=== PATIENT | female | born 1950 | race Caucasian/White ===

== ENCOUNTER 2016-11-11 07:01 | Day surgery (SDC) | payer BC ==
[2016-11-11] MEDS ORDERED: ZOLEDRONIC ACID 4 MG in SODIUM CHLORIDE 100 ML IVPB ONE (08:00)
[2016-11-11] MEDS ORDERED: SODIUM CHLORIDE 1,000 ML IV SCH (08:00)
[2016-11-11] MEDS ORDERED: HYDROCORTISONE SOD SUCCINATE 100 MG/2 ML VIAL IVPB PRN (08:00)
[2016-11-11 08:42] LABS: MCH 31.1 pg (25.7-33.7); MEAN CELL VOLUME 94.5 fl (80-96); MEAN PLT VOLUME 8.2 fl (7.5-11.1); PLATELET COUNT 147 K/MM3 (134-434); RDW 19.2 % (11.6-15.6); WHITE BLOOD COUNT 3.4 K/mm3 (4.0-10.0)
[2016-11-11 11:38] LABS: ALBUMIN 3.3 g/dl (3.4-5.0); BILIRUBIN,DIRECT 0.1 mg/dL (0.0-0.2); BILIRUBIN,TOTAL 0.3 mg/dL (0.2-1.0); CALCIUM 8.2 mg/dL (8.5-10.1); CREATININE 0.5 mg/dL (0.55-1.02)
[2016-11-11 12:02] LABS: METAMYELOCYTE 2 % (0-2)
[2016-11-11 12:03] LABS: PLATELET ESTIMATE ADEQUATE (NORMAL)
[2016-11-11 13:23] VITALS: BP 127/69; PULSE 87; TEMP 97.7
== END 2016-11-11 14:43 | disposition home or self-care (01) ==
LOC: JONCCHEMO 07:01 → J7W 10:21 → JONCCHEMO 14:43
PROVIDERS: ATTEND Internal Medicine Hematology & Oncology
DX: Z51.11 Encounter for antineoplastic chemotherapy (principal); C50.919 Malignant neoplasm of unspecified site of unspecified female breast; C79.51 Secondary malignant neoplasm of bone
CPT/HCPCS: 36415; 80048; 80076; 85025; 96365; J3489

== ENCOUNTER 2016-11-23 07:00 | Day surgery (SDC) | payer BC ==
[2016-11-23 10:40] VITALS: BP 115/61; PULSE 79; TEMP 98.3; BMI 36.8
[2016-11-23 11:01] LABS: ALBUMIN 3.2 g/dl (3.4-5.0); ANION GAP 7 (8-16); CO2 26 mmol/L (21-32); GLUCOSE,RANDOM 127 mg/dL (74-106); MAGNESIUM 2.1 mg/dL (1.8-2.4)
[2016-11-23 11:04] LABS: ALK PHOS 105 U/L (45-117); BILIRUBIN,TOTAL 0.4 mg/dL (0.2-1.0); CREATININE 0.5 mg/dL (0.55-1.02); SGOT/AST 22 U/L (15-37); SGPT/ALT 16 U/L (12-78); TOT PROT 5.8 g/dl (6.4-8.2)
[2016-11-23] MEDS ORDERED: FUROSEMIDE 20 MG TABLET (FP) PO ONE ×2 (12:00→17:00)
[2016-11-23 12:30] LABS: MCH 31.1 pg (25.7-33.7); MCHC 32.6 g/dl (32.0-36.0); MEAN CELL VOLUME 95.5 fl (80-96); PLATELET COUNT 141 K/MM3 (134-434); RDW 18.8 % (11.6-15.6); WHITE BLOOD COUNT 2.9 K/mm3 (4.0-10.0)
--- NOTE | 2016-11-23 16:00 | HP ---
Admitting History and Physical - Admission Chief Complaint: Symptomatic anemia for transfusion therapy History Source: Patient Limitations to Obtaining History: No Limitations - Past Medical History Cardiovascular: Yes: HTN Gastrointestinal: Yes: GERD Heme/Onc: Yes: Anemia, Cancer, Other Musculoskeletal: Yes: Other (right leg pain S/P right leg pathologic fx with repair; s/p RT to left hip; left shoulder pains and lumosacral spine pains) Endocrine: Yes: Hypothyroidism - Past Surgical History Additional Past Surgical History: right hip repair for pathologic fx - Smoking History Smoking history: Never smoked Have you smoked in the past 12 months: No - Alcohol/Substance Use Hx Alcohol Use: No Home Medications - Allergies Allergies/Adverse Reactions: Allergies Allergy/AdvReac Type Severity Reaction Status Date / Time codeine [Codeine] Allergy Severe Difficulty Verified 08/22/16 14:20 Breathing hydrocodone bitartrate Allergy Severe Hives Verified 08/22/16 14:20 [From Vicodin] oxycodone [Oxycodone] Allergy Severe Vomiting Verified 08/22/16 14:20 - Home Medications Home Medications: Ambulatory Orders Cholecalciferol (Vitamin D3) [Vitamin D -] 2,000 unit PO DAILY 01/18/13 Levothyroxine [Synthroid -] 50 mcg PO DAILY 01/18/13 Metoprolol Tartrate [Lopressor -] 25 mg PO DAILY 01/18/13 Multivit-Min/FA/Lycopene/Lut [Centrum Silver Tablet] 1 each PO DAILY 01/18/13 Acetaminophen [Tylenol .Regular Strength -] 650 mg PO Q6H PRN #0 tablet Anastrozole [Arimidex -] 1 mg PO DAILY tablet 08/31/16 Calcium 500Mg/Vit-D 200 Units [Os-Pan 500+D -] 1 tab PO BID tab 08/31/16 Dexamethasone [Decadron -] 2 mg PO DAILY tablet 08/31/16 Docusate Sodium [Colace -] 300 mg PO HS capsule 08/31/16 Enoxaparin [Lovenox -] 30 mg SQ BID disp.syrin 08/31/16 Hydromorphone [Dilaudid -] 6 mg PO Q4H PRN #0 tablet MDD 6 08/31/16 Ibuprofen [Motrin -] 800 mg PO Q6H PRN #0 tablet 08/31/16 Pantoprazole Sodium [Protonix -] 40 mg PO DAILY tablet.ec 08/31/16 Review of Systems - Review of Systems Constitutional: reports: Chills, Malaise, Weakness Eyes: denies: Blurred Vision, Double Vision, Eye Pain HENT: denies: Difficult Swallowing, Epistaxis Neck: denies: Pain on Movement, Swollen Glands, Tenderness Cardiovascular: reports: Chest Pain, Shortness of Breath. denies: Palpitations Respiratory: reports: SOB, SOB on Exertion. denies: Hemoptysis, Wheezing Gastrointestinal: reports: Abdominal Pain, Diarrhea. denies: Dysphagia, Nausea , Vomiting Genitourinary: denies: Dysuria, Flank Pain, Frequency Breasts: reports: No Symptoms Reported, Other (s/p bilaterl lumpectomies) Musculoskeletal: reports: Back Pain, Joint Pain, Other (left shoulder and hip pains) Integumentary: denies: Rash Neurological: reports: Weakness Endocrine: reports: No Symptoms Hematology/Lymphatic: denies: Easily Bruised, Excessive Bleeding Psychiatric: reports: No Symptoms Physical Examination Vital Signs: Vital Signs Temperature 98.3 F 11/23/16 10:35 Pulse Rate 79 11/23/16 10:35 Respiratory Rate 20 11/23/16 10:35 Blood Pressure 115/61 11/23/16 10:35 O2 Sat by Pulse Oximetry (%) Constitutional: Yes: Mild Distress Eyes: Yes: PERRL. No: Diplopia, Ptosis, Sclera Icterus HENT: Yes: Atraumatic, Normocephalic. No: Pharyngeal Erythema, Thrush, Tonsillar Exudate Neck: Yes: Supple, Trachea Midline. No: Lymphadenopathy, Tenderness, Thyromegaly Cardiovascular: Yes: Regular Rate and Rhythm Respiratory: Yes: Regular, CTA Bilaterally Gastrointestinal: Yes: Normal Bowel Sounds. No: Hepatomegaly, Splenomegaly, Tenderness Renal/: No: CVA Tenderness - Left, CVA Tenderness - Right Breast(s): Yes: Left, Right, Other (s/p lumpectomy) Edema: No Integumentary: No: Erythema, Incision, Jaundice Neurological: Yes: WNL ...Motor Strength: WNL Psychiatric: Yes: WNL Labs: CBC, BMP 11/23/16 12:25 11/23/16 09:13 Problem List - Problems (1) Breast cancer, right breast Assessment/Plan: Bilaterqal breast ca ER+, Her-2 negative Extensive skeletal mets Currently on tamoxifen and has completed RT to left shoulder and lumbosacral spine Code(s): C50.911 - MALIGNANT NEOPLASM OF UNSP SITE OF RIGHT FEMALE BREAST (2) Breast cancer Code(s): C50.919 - MALIGNANT NEOPLASM OF UNSP SITE OF UNSPECIFIED FEMALE BREAST Qualifiers: Patient sex: female Laterality: bilateral (3) Chronic disease anemia Assessment/Plan: Anemia secondary to chronic disease and Rt. Hct-23% For transfusion of 2 packed cells. Code(s): D63.8 - ANEMIA IN OTHER CHRONIC DISEASES CLASSIFIED ELSEWHERE
[2016-11-23 22:08] LABS: MCH 31.1 pg (25.7-33.7); MCHC 33.3 g/dl (32.0-36.0); MEAN CELL VOLUME 93.5 fl (80-96); MEAN PLT VOLUME 8.5 fl (7.5-11.1); PLATELET COUNT 134 K/MM3 (134-434); RDW 17.9 % (11.6-15.6); WHITE BLOOD COUNT 3.1 K/mm3 (4.0-10.0)
== END 2016-11-23 21:45 | disposition home or self-care (01) ==
LOC: JONCNONCHE 07:00 → JONCBLOOD 07:00 → J7W 09:54 → JONCBLOOD 21:45
PROVIDERS: ATTEND Internal Medicine Hematology & Oncology
PROC: 30233N1 Transfusion of Nonautologous Red Blood Cells into Peripheral Vein, Percutaneous Approach (ICD-10-PCS; principal; 2016-11-23)
DX: D64.9 Anemia, unspecified (principal); C50.919 Malignant neoplasm of unspecified site of unspecified female breast; C79.51 Secondary malignant neoplasm of bone; I10 Essential (primary) hypertension; K21.9 Gastro-esophageal reflux disease without esophagitis; E03.9 Hypothyroidism, unspecified; Z96.641 Presence of right artificial hip joint
CPT/HCPCS: 36415; 36430; 36511; 80053; 83735; 85027; 86850; 86900; 86901; 86922; 87324; 87449; P9038; P9058

== ENCOUNTER 2016-12-09 06:55 | Day surgery (SDC) | payer BC ==
[2016-12-09] MEDS ORDERED: ZOLEDRONIC ACID 4 MG in SODIUM CHLORIDE 100 ML IVPB ONE (08:00)
[2016-12-09 08:38] LABS: BASOPHIL 0.6 % (0-2.0); EOSINOPHIL 6.3 % (0-4.5); MCH 31.1 pg (25.7-33.7); MCHC 33.3 g/dl (32.0-36.0); MEAN CELL VOLUME 93.5 fl (80-96); MEAN PLT VOLUME 7.7 fl (7.5-11.1); NEUTROPHILS 71.1 % (42.8-82.8); PLATELET COUNT 136 K/MM3 (134-434); RDW 16.3 % (11.6-15.6); WHITE BLOOD COUNT 3.2 K/mm3 (4.0-10.0)
[2016-12-09 10:46] VITALS: TEMP 98.3
[2016-12-09 11:18] LABS: COCKROFT - GAULT 191.2755; CREATININE 0.5 mg/dL (0.55-1.02)
[2016-12-09 11:20] LABS: BILIRUBIN,DIRECT 0.1 mg/dL (0.0-0.2)
[2016-12-09 11:22] LABS: BILIRUBIN,TOTAL 0.3 mg/dL (0.2-1.0); TOT PROT 5.5 g/dl (6.4-8.2)
[2016-12-09 13:02] VITALS: BP 142/62; PULSE 72
[2016-12-09 18:13] LABS: MCHC 33.4 g/dl (32.0-36.0); MEAN CELL VOLUME 92.7 fl (80-96); MEAN PLT VOLUME 8.5 fl (7.5-11.1); PLATELET COUNT 148 K/MM3 (134-434); RDW 17.2 % (11.6-15.6); WHITE BLOOD COUNT 3.8 K/mm3 (4.0-10.0)
== END 2016-12-09 18:45 | disposition home or self-care (01) ==
LOC: JONCCHEMO 06:55 → J7W 10:08 → JONCCHEMO 18:45
PROVIDERS: ATTEND Internal Medicine Hematology & Oncology
PROC: 3E033GC Introduction of Other Therapeutic Substance into Peripheral Vein, Percutaneous Approach (ICD-10-PCS; principal; 2016-12-09)
PROC: 30233N1 Transfusion of Nonautologous Red Blood Cells into Peripheral Vein, Percutaneous Approach (ICD-10-PCS; 2016-12-09)
DX: C50.919 Malignant neoplasm of unspecified site of unspecified female breast (principal); C79.51 Secondary malignant neoplasm of bone; D64.9 Anemia, unspecified
CPT/HCPCS: 36415; 36430; 80048; 80076; 83615; 85025; 85027; 86850; 86900; 86901; 86922; 96365; J3489; P9038; P9058

== ENCOUNTER 2017-01-06 07:37 | Day surgery (SDC) | payer BC ==
[2017-01-06] MEDS ORDERED: ZOLEDRONIC ACID 4 MG in SODIUM CHLORIDE 100 ML IVPB ONE (08:00)
[2017-01-06 09:36] LABS: BASOPHIL 1.2 % (0-2.0); EOSINOPHIL 3.1 % (0-4.5); MCH 30.9 pg (25.7-33.7); MCHC 34.3 g/dl (32.0-36.0); MEAN CELL VOLUME 90.1 fl (80-96); MEAN PLT VOLUME 7.9 fl (7.5-11.1); NEUTROPHILS 70.9 % (42.8-82.8); PLATELET COUNT 174 K/MM3 (134-434); RDW 16.9 % (11.6-15.6); WHITE BLOOD COUNT 3.6 K/mm3 (4.0-10.0)
[2017-01-06 15:16] VITALS: BP 110/65; PULSE 61; TEMP 98.1
== END 2017-01-06 15:51 | disposition home or self-care (01) ==
LOC: JONCCHEMO 07:37 → J7W 10:44 → JONCCHEMO 15:51
PROVIDERS: ATTEND Internal Medicine Hematology & Oncology
PROC: 3E033GC Introduction of Other Therapeutic Substance into Peripheral Vein, Percutaneous Approach (ICD-10-PCS; principal; 2017-01-06)
DX: C50.919 Malignant neoplasm of unspecified site of unspecified female breast (principal); C79.51 Secondary malignant neoplasm of bone
CPT/HCPCS: 36415; 85025; 96365; J3489

== ENCOUNTER 2017-02-03 07:18 | Day surgery (SDC) | payer BC ==
[2017-02-03 08:36] VITALS: BP 110/64; PULSE 71; TEMP 98.7
[2017-02-03 08:51] LABS: MCH 31.3 pg (25.7-33.7); MCHC 33.3 g/dl (32.0-36.0); MEAN PLT VOLUME 7.7 fl (7.5-11.1); PLATELET COUNT 151 K/MM3 (134-434); RDW 18.1 % (11.6-15.6); WHITE BLOOD COUNT 3.6 K/mm3 (4.0-10.0)
[2017-02-03 09:23] LABS: ALBUMIN 3.3 g/dl (3.4-5.0); ANION GAP 7 (8-16); CALCIUM 8.5 mg/dL (8.5-10.1); CO2 29 mmol/L (21-32); GLUCOSE,RANDOM 107 mg/dL (74-106); MAGNESIUM 2.2 mg/dL (1.8-2.4); SGOT/AST 19 U/L (15-37); SGPT/ALT 17 U/L (12-78)
[2017-02-03 09:25] LABS: ALK PHOS 68 U/L (45-117); BILIRUBIN,TOTAL 0.3 mg/dL (0.2-1.0); CREATININE 0.6 mg/dL (0.55-1.02); TOT PROT 5.8 g/dl (6.4-8.2)
[2017-02-03] MEDS ORDERED: ZOLEDRONIC ACID 4 MG in SODIUM CHLORIDE 100 ML IVPB ONE (10:00)
[2017-02-03 10:25] LABS: METAMYELOCYTE 1 % (0-2)
[2017-02-03 10:26] LABS: HYPOCHROMIA 1+; PLATELET ESTIMATE ADEQUATE (NORMAL)
== END 2017-02-03 18:31 | disposition home or self-care (01) ==
LOC: JONCCHEMO 07:18 → J7W 10:00 → JONCCHEMO 18:31
PROVIDERS: ATTEND Internal Medicine Hematology & Oncology
PROC: 3E033GC Introduction of Other Therapeutic Substance into Peripheral Vein, Percutaneous Approach (ICD-10-PCS; principal; 2017-02-03)
DX: C79.51 Secondary malignant neoplasm of bone (principal)
CPT/HCPCS: 36415; 36430; 80053; 83735; 85025; 86850; 86900; 86901; 86922; 96365; J3489; P9038; P9058

== ENCOUNTER 2017-03-03 07:52 | Day surgery (SDC) | payer BC ==
[2017-03-03 09:19] LABS: BASOPHIL 0.9 % (0-2.0); EOSINOPHIL 3.8 % (0-4.5); MCH 31.5 pg (25.7-33.7); MCHC 33.4 g/dl (32.0-36.0); MEAN CELL VOLUME 94.3 fl (80-96); MEAN PLT VOLUME 8.2 fl (7.5-11.1); NEUTROPHILS 70.1 % (42.8-82.8); PLATELET COUNT 174 K/MM3 (134-434); RDW 17.8 % (11.6-15.6); WHITE BLOOD COUNT 3.2 K/mm3 (4.0-10.0)
[2017-03-03] MEDS ORDERED: ZOLEDRONIC ACID 4 MG in SODIUM CHLORIDE 100 ML IVPB ONE (10:00)
[2017-03-03 10:13] LABS: ALBUMIN 3.2 g/dl (3.4-5.0); ALK PHOS 64 U/L (45-117); ANION GAP 7 (8-16); BILIRUBIN,TOTAL 0.3 mg/dL (0.2-1.0); CALCIUM 8.5 mg/dL (8.5-10.1); CO2 29 mmol/L (21-32); CREATININE 0.6 mg/dL (0.55-1.02); GLUCOSE,RANDOM 117 mg/dL (74-106); SGOT/AST 19 U/L (15-37); SGPT/ALT 19 U/L (12-78)
[2017-03-03 10:14] LABS: BILIRUBIN,DIRECT < 0.1 mg/dL (0.0-0.2)
[2017-03-03 12:35] VITALS: BP 110/69; PULSE 68; TEMP 98.2
== END 2017-03-03 13:15 | disposition home or self-care (01) ==
LOC: JONCCHEMO 07:52 → J7W 10:36 → JONCCHEMO 13:15
PROVIDERS: ATTEND Internal Medicine Hematology & Oncology
PROC: 3E033GC Introduction of Other Therapeutic Substance into Peripheral Vein, Percutaneous Approach (ICD-10-PCS; principal; 2017-03-03)
DX: C79.51 Secondary malignant neoplasm of bone (principal)
CPT/HCPCS: 36415; 80053; 80076; 82378; 83735; 85025; 86300; 86304; 96365; 96417; J3489

== ENCOUNTER 2017-03-18 07:18 | Day surgery (SDC) | payer BC ==
[2017-03-18 08:40] LABS: BASOPHIL 0.8 % (0-2.0); MCH 31.3 pg (25.7-33.7); MCHC 33.1 g/dl (32.0-36.0); MEAN CELL VOLUME 94.7 fl (80-96); MEAN PLT VOLUME 8.3 fl (7.5-11.1); NEUTROPHILS 69.5 % (42.8-82.8); PLATELET COUNT 179 K/MM3 (134-434); RDW 17.3 % (11.6-15.6); WHITE BLOOD COUNT 3.4 K/mm3 (4.0-10.0)
[2017-03-18] MEDS ORDERED: POTASSIUM CHLORIDE TABS 20 MEQ TABLET.ER (FP) PO ONE ×2 (09:00→15:15)
[2017-03-18] MEDS ORDERED: FUROSEMIDE 40 MG/4 ML INJECTABLE VIAL IVPUSH ONE ×3 (09:00→15:29)
[2017-03-18 09:04] LABS: ALBUMIN 3.1 g/dl (3.4-5.0); ANION GAP 9 (8-16); CALCIUM 8.3 mg/dL (8.5-10.1); CO2 26 mmol/L (21-32); CREATININE 0.7 mg/dL (0.55-1.02); GLUCOSE,RANDOM 152 mg/dL (74-106); SGOT/AST 20 U/L (15-37); SGPT/ALT 20 U/L (12-78)
[2017-03-18 09:06] LABS: ALK PHOS 59 U/L (45-117); BILIRUBIN,TOTAL 0.3 mg/dL (0.2-1.0); TOT PROT 5.8 g/dl (6.4-8.2)
--- NOTE | 2017-03-18 13:42 | HP ---
[facility] - Chief Complaint Chief Complaint: Symptomatic anemia for transfusion therapy History of Present Illness: is a 66 year old woman with history of metastatic Bilaterqal breast ca ER+, Her-2 negative with Extensive skeletal mets , Currently on tamoxifen and q4week zometa. She alsohas completed RT to left shoulder and lumbosacral spine. She is here for transfusion for symptomatic anemia. She denies any complains. She feels well. History Source: Patient Limitations to Obtaining History: No Limitations - Past Medical History Allergies/Adverse Reactions: Allergies Allergy/AdvReac Type Severity Reaction Status Date / Time codeine [Codeine] Allergy Severe Difficulty Verified 08/22/16 14:20 Breathing hydrocodone bitartrate Allergy Severe Hives Verified 08/22/16 14:20 [From Vicodin] oxycodone [Oxycodone] Allergy Severe Vomiting Verified 08/22/16 14:20 Cardiovascular: Yes: HTN Gastrointestinal: Yes: GERD Heme/Onc: Yes: Anemia, Cancer, Other Musculoskeletal: Yes: Other (right leg pain S/P right leg pathologic fx with repair; s/p RT to left hip; left shoulder pains and lumosacral spine pains) Endocrine: Yes: Hypothyroidism - Current Medications Current Medications: Home Medications Medication Instructions Recorded Cholecalciferol (Vitamin D3) 2,000 unit PO DAILY 01/18/13 [Vitamin D -] Levothyroxine [Synthroid -] 50 mcg PO DAILY 01/18/13 Metoprolol Tartrate [Lopressor -] 25 mg PO DAILY 01/18/13 Multivit-Min/FA/Lycopene/Lut 1 each PO DAILY 01/18/13 [Centrum Silver Tablet] Ibuprofen [Motrin -] 800 mg PO Q6H PRN #0 tablet 08/31/16 Esomeprazole Magnesium [Nexium 20 mg PO DAILY 12/09/16 24Hr] Tamoxifen Citrate 20 mg PO DAILY 12/09/16 Ascorbate Calcium [Vitamin C] 500 mg PO HS 03/18/17 Aspirin [Driss Chewable] 81 mg PO DAILY 03/18/17 Cholecalciferol (Vitamin D3) 2,000 unit PO DAILY 03/18/17 [Vitamin D3] Ferrous Sulfate 325 mg PO HS 03/18/17 Furosemide [Lasix -] 20 mg PO DAILY 03/18/17 Multivit-Min/FA/Lycopen/Lutein 1 tab PO DAILY 03/18/17 [Centrum Silver Tablet] Satellite Physical Exam - Physical Examination Vital Signs: Vital Signs Period Temp Pulse Resp BP Sys/Zayas Pulse Ox Last 24 Hr 98.4 F 65 20 117/53 General Appearance: Well Nourished, Well Developed, Alert & Oriented x3, No Distress ENT: Clear Heart: Regular rate & rhythm, Normal S1, Normal S2 Abdomen: Soft, No tenderness Extremities: No edema, No tenderness/swelling Neurological: Alert, Oriented Satellite Impression/Plan - Impression/Plan Impression: Symptomatic anemia for transfusion therapy in the setting of metastatic ER+ Breast cancer with bony mets, on tamoxifen and zometa.
[2017-03-18 20:54] VITALS: TEMP 98.6
[2017-03-18 20:55] VITALS: BP 126/58; PULSE 68
[2017-03-18 21:23] LABS: MCH 31.3 pg (25.7-33.7); MEAN CELL VOLUME 91.9 fl (80-96); MEAN PLT VOLUME 8.5 fl (7.5-11.1); PLATELET COUNT 190 K/MM3 (134-434); RDW 17.2 % (11.6-15.6); WHITE BLOOD COUNT 4.4 K/mm3 (4.0-10.0)
== END 2017-03-18 20:57 | disposition home or self-care (01) ==
LOC: JONCBLOOD 07:18 → J7W 07:19 → JONCBLOOD 20:57
PROVIDERS: ATTEND Internal Medicine Hematology & Oncology
PROC: 30233N1 Transfusion of Nonautologous Red Blood Cells into Peripheral Vein, Percutaneous Approach (ICD-10-PCS; principal; 2017-03-18)
DX: D64.9 Anemia, unspecified (principal); C50.919 Malignant neoplasm of unspecified site of unspecified female breast; C79.51 Secondary malignant neoplasm of bone; I10 Essential (primary) hypertension; K21.9 Gastro-esophageal reflux disease without esophagitis; E03.9 Hypothyroidism, unspecified; Z88.6 Allergy status to analgesic agent
CPT/HCPCS: 36415; 36430; 80053; 83735; 85025; 85027; 86850; 86900; 86901; 86922; P9038; P9058

== ENCOUNTER 2017-03-31 07:50 | Day surgery (SDC) | payer BC ==
[2017-03-31] MEDS ORDERED: ZOLEDRONIC ACID 4 MG in SODIUM CHLORIDE 100 ML IVPB ONE (08:00)
[2017-03-31 08:17] VITALS: BP 120/60; PULSE 67; TEMP 98.2
[2017-03-31 08:28] LABS: BASOPHIL 0.9 % (0-2.0); EOSINOPHIL 4.3 % (0-4.5); MCH 31.6 pg (25.7-33.7); MCHC 33.8 g/dl (32.0-36.0); MEAN CELL VOLUME 93.4 fl (80-96); MEAN PLT VOLUME 8.1 fl (7.5-11.1); NEUTROPHILS 66.3 % (42.8-82.8); PLATELET COUNT 169 K/MM3 (134-434); RDW 15.7 % (11.6-15.6); WHITE BLOOD COUNT 3.2 K/mm3 (4.0-10.0)
[2017-03-31 08:51] LABS: ALBUMIN 3.2 g/dl (3.4-5.0); ALK PHOS 60 U/L (45-117); BILIRUBIN,TOTAL 0.3 mg/dL (0.2-1.0); CO2 29 mmol/L (21-32); CREATININE 0.6 mg/dL (0.55-1.02); GLUCOSE,RANDOM 115 mg/dL (74-106); MAGNESIUM 2.5 mg/dL (1.8-2.4); SGOT/AST 21 U/L (15-37); SGPT/ALT 22 U/L (12-78)
[2017-03-31 08:56] LABS: BILIRUBIN,DIRECT < 0.1 mg/dL (0.0-0.2)
[2017-03-31 08:59] LABS: ANION GAP 10 (8-16)
== END 2017-03-31 12:00 | disposition home or self-care (01) ==
LOC: JONCCHEMO 07:50 → J7W 10:26 → JONCCHEMO 12:00
PROVIDERS: ATTEND Internal Medicine Hematology & Oncology
PROC: 3E033GC Introduction of Other Therapeutic Substance into Peripheral Vein, Percutaneous Approach (ICD-10-PCS; principal; 2017-03-31)
DX: C50.919 Malignant neoplasm of unspecified site of unspecified female breast (principal); C79.51 Secondary malignant neoplasm of bone
CPT/HCPCS: 36415; 80053; 80076; 82378; 83735; 85025; 96365; 96417; J3489

== ENCOUNTER 2017-05-05 07:47 | Day surgery (SDC) | payer BC ==
[2017-05-05 08:57] LABS: BASOPHIL 0.8 % (0-2.0); EOSINOPHIL 3.4 % (0-4.5); MCH 31.4 pg (25.7-33.7); MEAN CELL VOLUME 92.3 fl (80-96); MEAN PLT VOLUME 8.6 fl (7.5-11.1); NEUTROPHILS 66.9 % (42.8-82.8); PLATELET COUNT 198 K/MM3 (134-434); RDW 15.8 % (11.6-15.6); WHITE BLOOD COUNT 3.8 K/mm3 (4.0-10.0)
[2017-05-05 09:45] LABS: ALBUMIN 3.5 g/dl (3.4-5.0); ALK PHOS 57 U/L (45-117); ANION GAP 7 (8-16); BILIRUBIN,DIRECT < 0.2 mg/dL (0.0-0.2); BILIRUBIN,TOTAL 0.4 mg/dL (0.2-1.0); CALCIUM 8.8 mg/dL (8.5-10.1); CO2 25 mmol/L (21-32); CREATININE 0.6 mg/dL (0.55-1.02); GLUCOSE,RANDOM 113 mg/dL (74-106); MAGNESIUM 2.1 mg/dL (1.8-2.4); SGOT/AST 25 U/L (15-37); SGPT/ALT 27 U/L (12-78); TOT PROT 6.5 g/dl (6.4-8.2)
[2017-05-05 10:00] VITALS: TEMP 99
[2017-05-05] MEDS ORDERED: ZOLEDRONIC ACID 4 MG in SODIUM CHLORIDE 100 ML IVPB ONE (10:00)
[2017-05-05 10:55] VITALS: BP 108/68; PULSE 65
== END 2017-05-05 10:55 | disposition home or self-care (01) ==
LOC: JONCNONCHE 07:47 → J7W 09:32 → JONCNONCHE 10:55
PROVIDERS: ATTEND Internal Medicine Hematology & Oncology
PROC: 3E033GC Introduction of Other Therapeutic Substance into Peripheral Vein, Percutaneous Approach (ICD-10-PCS; principal; 2017-05-05)
DX: C50.919 Malignant neoplasm of unspecified site of unspecified female breast (principal); C79.51 Secondary malignant neoplasm of bone
CPT/HCPCS: 36415; 80053; 80076; 82378; 83735; 85025; 86300; 96365; 96417; J3489

== ENCOUNTER 2017-06-02 07:20 | Day surgery (SDC) | payer BC ==
[2017-06-02] MEDS ORDERED: ZOLEDRONIC ACID 4 MG in SODIUM CHLORIDE 100 ML IVPB ONE (09:00)
[2017-06-02 11:21] LABS: BASOPHIL 0.3 % (0-2.0); EOSINOPHIL 2.9 % (0-4.5); MCH 31.4 pg (25.7-33.7); MCHC 33.5 g/dl (32.0-36.0); MEAN CELL VOLUME 93.8 fl (80-96); MEAN PLT VOLUME 8.4 fl (7.5-11.1); PLATELET COUNT 193 K/MM3 (134-434); RDW 17.4 % (11.6-15.6); WHITE BLOOD COUNT 3.7 K/mm3 (4.0-10.0)
[2017-06-02 11:53] LABS: ALBUMIN 3.3 g/dl (3.4-5.0); ALK PHOS 55 U/L (45-117); ANION GAP 11 (8-16); BILIRUBIN,DIRECT < 0.1 mg/dL (0.0-0.2); BILIRUBIN,TOTAL 0.3 mg/dL (0.2-1.0); CALCIUM 8.3 mg/dL (8.5-10.1); CO2 26 mmol/L (21-32); CREATININE 0.6 mg/dL (0.55-1.02); GLUCOSE,RANDOM 117 mg/dL (74-106); MAGNESIUM 2.2 mg/dL (1.8-2.4); SGOT/AST 26 U/L (15-37); SGPT/ALT 23 U/L (12-78); TOT PROT 6.1 g/dl (6.4-8.2)
[2017-06-02 17:07] VITALS: BP 126/77; PULSE 88; TEMP 97.7
== END 2017-06-02 13:05 | disposition home or self-care (01) ==
LOC: JONCCHEMO 07:20 → J7W 11:49 → JONCCHEMO 13:05
PROVIDERS: ATTEND Internal Medicine Hematology & Oncology
PROC: 3E033GC Introduction of Other Therapeutic Substance into Peripheral Vein, Percutaneous Approach (ICD-10-PCS; principal; 2017-06-02)
DX: C50.919 Malignant neoplasm of unspecified site of unspecified female breast (principal); C79.51 Secondary malignant neoplasm of bone
CPT/HCPCS: 36415; 80053; 80076; 83735; 85025; 96365; 96417; J3489

== ENCOUNTER 2017-06-16 07:19 | Day surgery (SDC) | payer BC ==
[2017-06-16 09:19] LABS: BASOPHIL 1.1 % (0-2.0); EOSINOPHIL 2.9 % (0-4.5); MCH 31.4 pg (25.7-33.7); MCHC 33.2 g/dl (32.0-36.0); MEAN CELL VOLUME 94.6 fl (80-96); MEAN PLT VOLUME 8.5 fl (7.5-11.1); NEUTROPHILS 72.4 % (42.8-82.8); PLATELET COUNT 206 K/MM3 (134-434); RDW 17.1 % (11.6-15.6); WHITE BLOOD COUNT 4.2 K/mm3 (4.0-10.0)
[2017-06-16 09:47] LABS: ALBUMIN 3.2 g/dl (3.4-5.0); ANION GAP 10 (8-16); BILIRUBIN,DIRECT 0.1 mg/dL (0.0-0.2); BILIRUBIN,TOTAL 0.4 mg/dL (0.2-1.0); CALCIUM 8.3 mg/dL (8.5-10.1); CO2 26 mmol/L (21-32); CREATININE 0.8 mg/dL (0.55-1.02); GLUCOSE,RANDOM 148 mg/dL (74-106); MAGNESIUM 2.3 mg/dL (1.8-2.4); SGOT/AST 29 U/L (15-37); SGPT/ALT 27 U/L (12-78)
[2017-06-16 09:48] LABS: ALK PHOS 58 U/L (45-117)
[2017-06-16] MEDS ORDERED: FULVESTRANT 250 MG/5 ML SYRINGE IM ONE (10:00)
[2017-06-16 18:28] VITALS: PULSE 70; TEMP 98.5
[2017-06-16 18:29] VITALS: BP 122/50
== END 2017-06-16 09:45 | disposition home or self-care (01) ==
LOC: JONCCHEMO 07:19 → J7W 09:32 → JONCCHEMO 09:45
PROVIDERS: ATTEND Internal Medicine Hematology & Oncology
DX: Z51.11 Encounter for antineoplastic chemotherapy (principal); C50.919 Malignant neoplasm of unspecified site of unspecified female breast; C79.51 Secondary malignant neoplasm of bone
CPT/HCPCS: 36415; 80053; 80076; 83735; 85025; 96402; J9395

== ENCOUNTER 2017-08-03 09:10 | Day surgery (SDC) | payer BC ==
[2017-08-03] MEDS ORDERED: FULVESTRANT 250 MG/5 ML SYRINGE IM ONE (10:00)
[2017-08-03 10:04] LABS: BASOPHIL 1.2 % (0-2.0); EOSINOPHIL 2.6 % (0-4.5); MCH 31.1 pg (25.7-33.7); MCHC 32.9 g/dl (32.0-36.0); MEAN CELL VOLUME 94.8 fl (80-96); MEAN PLT VOLUME 8.4 fl (7.5-11.1); NEUTROPHILS 70.6 % (42.8-82.8); PLATELET COUNT 204 K/MM3 (134-434); RDW 17.8 % (11.6-15.6); WHITE BLOOD COUNT 3.6 K/mm3 (4.0-10.0)
[2017-08-03] MEDS ORDERED: ZOLEDRONIC ACID 4 MG in SODIUM CHLORIDE 100 ML IVPB ONE (10:30)
[2017-08-03 10:35] LABS: ALK PHOS 79 U/L (45-117); ANION GAP 8 (8-16); BILIRUBIN,DIRECT < 0.2 mg/dL (0.0-0.2); BILIRUBIN,TOTAL 0.5 mg/dL (0.2-1.0); CALCIUM 8.6 mg/dL (8.5-10.1); CO2 26 mmol/L (21-32); CREATININE 0.9 mg/dL (0.55-1.02); GLUCOSE,RANDOM 156 mg/dL (74-106); MAGNESIUM 2.1 mg/dL (1.8-2.4); SGOT/AST 40 U/L (15-37); SGPT/ALT 36 U/L (12-78); TOT PROT 6.1 g/dl (6.4-8.2)
[2017-08-03 18:19] VITALS: BP 110/57; PULSE 69
[2017-08-03 18:36] VITALS: TEMP 97.4
[2017-08-03 20:08] LABS: MCH 31.5 pg (25.7-33.7); MCHC 34.1 g/dl (32.0-36.0); MEAN CELL VOLUME 92.4 fl (80-96); MEAN PLT VOLUME 8.1 fl (7.5-11.1); PLATELET COUNT 188 K/MM3 (134-434); RDW 17.4 % (11.6-15.6)
== END 2017-08-03 21:07 | disposition home or self-care (01) ==
LOC: JONCCHEMO 09:10 → J7W 11:02 → JONCCHEMO 21:07
PROVIDERS: ATTEND Internal Medicine Hematology & Oncology
PROC: 3E01305 Introduction of Other Antineoplastic into Subcutaneous Tissue, Percutaneous Approach (ICD-10-PCS; principal; 2017-08-03)
PROC: 3E033GC Introduction of Other Therapeutic Substance into Peripheral Vein, Percutaneous Approach (ICD-10-PCS; 2017-08-03)
DX: Z51.11 Encounter for antineoplastic chemotherapy (principal); C50.919 Malignant neoplasm of unspecified site of unspecified female breast; C79.51 Secondary malignant neoplasm of bone
CPT/HCPCS: 36415; 36430; 80053; 80076; 83735; 85025; 85027; 86850; 86900; 86901; 86922; 96365; 96402; 96417; J3489; J9395; P9038; P9058

== ENCOUNTER 2017-09-14 07:37 | Day surgery (SDC) | payer BC ==
[~2017-09-14 07:37] MED LIST: FULVESTRANT 250 MG/5 ML SYRINGE IM ONE; ZOLEDRONIC ACID 4 MG in SODIUM CHLORIDE 100 ML IVPB ONE
[2017-09-14 09:19] LABS: BASO % 0.9 % (0-2.0); EOS % 2.2 % (0-4.5); HEMATOCRIT 27.5 % (32.4-45.2); HEMOGLOBIN 8.9 GM/dL (10.7-15.3); LYMPH % 16.6 % (8-40); MCH 30.8 pg (25.7-33.7); MCHC 32.3 g/dl (32.0-36.0); MEAN CELL VOLUME 95.4 fl (80-96); MEAN PLT VOLUME 8.7 fl (7.5-11.1); MONO % 11.3 % (3.8-10.2); PLATELET COUNT 164 K/MM3 (134-434); RBC 2.88 M/mm3 (3.60-5.2); RDW 18.6 % (11.6-15.6); WHITE BLOOD COUNT 3.7 K/mm3 (4.0-10.0)
[2017-09-14 09:26] VITALS: TEMP 98.3
[2017-09-14 09:39] LABS: ALBUMIN 2.9 g/dl (3.4-5.0); ALK PHOS 100 U/L (45-117); ANION GAP 6 (8-16); BILIRUBIN,DIRECT 0.2 mg/dL (0.0-0.2); BILIRUBIN,TOTAL 0.5 mg/dL (0.2-1.0); BLOOD UREA NITROGEN 18 mg/dL (7-18); CALCIUM 8.9 mg/dL (8.5-10.1); CHLORIDE 112 mmol/L (98-107); CO2 25 mmol/L (21-32); GLUCOSE,RANDOM 130 mg/dL (74-106); MAGNESIUM 2.4 mg/dL (1.8-2.4); POTASSIUM 4.1 mmol/L (3.5-5.1); SGOT/AST 53 U/L (15-37); SGPT/ALT 44 U/L (12-78); SODIUM 143 mmol/L (136-145)
[2017-09-14] MEDS ORDERED: ZOLEDRONIC ACID 4 MG in SODIUM CHLORIDE 100 ML IVPB ONE (10:00)
[2017-09-14] MEDS ORDERED: FULVESTRANT 250 MG/5 ML SYRINGE IM ONE (11:00)
[2017-09-14 12:19] VITALS: BP 119/70; PULSE 68
== END 2017-09-14 10:50 | disposition home or self-care (01) ==
LOC: JONCCHEMO 07:37 → J7W 09:30 → JONCCHEMO 10:50
PROVIDERS: ATTEND Internal Medicine Hematology & Oncology
PROC: 3E01305 Introduction of Other Antineoplastic into Subcutaneous Tissue, Percutaneous Approach (ICD-10-PCS; principal; 2017-09-14)
PROC: 3E033GC Introduction of Other Therapeutic Substance into Peripheral Vein, Percutaneous Approach (ICD-10-PCS; 2017-09-14)
DX: Z51.11 Encounter for antineoplastic chemotherapy (principal); C50.919 Malignant neoplasm of unspecified site of unspecified female breast; C79.51 Secondary malignant neoplasm of bone
CPT/HCPCS: 36415; 80053; 80076; 82378; 83735; 85025; 86300; 86304; 96365; 96402; 96417; J3489; J9395

== ENCOUNTER 2017-09-28 08:40 | Day surgery (SDC) | payer BC ==
[2017-09-28 09:02] LABS: HEMATOCRIT 26.8 % (32.4-45.2); HEMOGLOBIN 8.8 GM/dL (10.7-15.3); MCH 31.3 pg (25.7-33.7); MCHC 32.8 g/dl (32.0-36.0); MEAN CELL VOLUME 95.6 fl (80-96); MEAN PLT VOLUME 9.1 fl (7.5-11.1); PLATELET COUNT 149 K/MM3 (134-434); RBC 2.81 M/mm3 (3.60-5.2); RDW 19.4 % (11.6-15.6); WHITE BLOOD COUNT 4.9 K/mm3 (4.0-10.0)
[2017-09-28 09:27] LABS: ALBUMIN 2.9 g/dl (3.4-5.0); ANION GAP 10 (8-16); BILIRUBIN,DIRECT 0.2 mg/dL (0.0-0.2); BILIRUBIN,TOTAL 0.6 mg/dL (0.2-1.0); BLOOD UREA NITROGEN 17 mg/dL (7-18); CALCIUM 8.4 mg/dL (8.5-10.1); CHLORIDE 108 mmol/L (98-107); CO2 25 mmol/L (21-32); CREATININE 0.9 mg/dL (0.55-1.02); GLUCOSE,RANDOM 118 mg/dL (74-106); MAGNESIUM 2.3 mg/dL (1.8-2.4); POTASSIUM 4.2 mmol/L (3.5-5.1); SGOT/AST 62 U/L (15-37); SGPT/ALT 45 U/L (12-78); SODIUM 143 mmol/L (136-145)
[2017-09-28 09:28] LABS: ALK PHOS 114 U/L (45-117)
[2017-09-28] MEDS ORDERED: FUROSEMIDE 40 MG/4 ML INJECTABLE VIAL IVPUSH SCH (10:30)
[2017-09-28] MEDS ORDERED: POTASSIUM CHLORIDE TABS 20 MEQ TABLET.ER (FP) PO SCH (10:45)
[2017-09-28 11:42] LABS: ANISOCYTOSIS 1+; PLATELET ESTIMATE NORMAL; TEAR DROP CELLS 1+
[2017-09-28 18:14] VITALS: BP 145/66; PULSE 71
[2017-09-28 18:15] VITALS: TEMP 98.4
[2017-09-29 06:06] LABS: IGA IMMUNOGLOBULIN 117 mg/dL (87-352); IGG IMMUNOGLOBULIN 687 mg/dL (700-1600); IGM IMMUNOGLOBULIN 154 mg/dL (26-217)
== END 2017-09-28 18:15 | disposition home or self-care (01) ==
LOC: JLAB 08:40 → JONCBLOOD 08:40 → EDSTATUS 09:53 → J7W 09:56 → JONCBLOOD 18:15
PROVIDERS: ATTEND Internal Medicine Hematology & Oncology
DX: C79.51 Secondary malignant neoplasm of bone (principal); C50.919 Malignant neoplasm of unspecified site of unspecified female breast
CPT/HCPCS: 36415; 36430; 80053; 80076; 82784; 83735; 84439; 84443; 85025; 86850; 86900; 86901; 86922; P9038; P9058

== ENCOUNTER 2017-10-12 07:20 | Day surgery (SDC) | payer BC ==
[2017-10-12] MEDS ORDERED: FULVESTRANT 250 MG/5 ML SYRINGE IM ONE (08:00)
[2017-10-12] MEDS ORDERED: ZOLEDRONIC ACID 4 MG in SODIUM CHLORIDE 100 ML IVPB ONE (08:30)
[2017-10-12 09:25] LABS: HEMOGLOBIN 9.9 GM/dL (10.7-15.3); MCH 30.9 pg (25.7-33.7); MCHC 32.9 g/dl (32.0-36.0); MEAN CELL VOLUME 93.8 fl (80-96); PLATELET COUNT 129 K/MM3 (134-434); RDW 18.7 % (11.6-15.6); WHITE BLOOD COUNT 4.6 K/mm3 (4.0-10.0)
[2017-10-12 10:23] LABS: ALBUMIN 2.9 g/dl (3.4-5.0); ANION GAP 10 (8-16); BILIRUBIN,DIRECT 0.2 mg/dL (0.0-0.2); BILIRUBIN,TOTAL 0.6 mg/dL (0.2-1.0); BLOOD UREA NITROGEN 22 mg/dL (7-18); CALCIUM 7.9 mg/dL (8.5-10.1); CHLORIDE 110 mmol/L (98-107); CO2 24 mmol/L (21-32); CREATININE 1.1 mg/dL (0.55-1.02); GLUCOSE,RANDOM 139 mg/dL (74-106); MAGNESIUM 2.1 mg/dL (1.8-2.4); POTASSIUM 4.1 mmol/L (3.5-5.1); SGOT/AST 64 U/L (15-37); SGPT/ALT 40 U/L (12-78); SODIUM 144 mmol/L (136-145); TOT PROT 5.6 g/dl (6.4-8.2)
[2017-10-12 10:24] LABS: ALK PHOS 128 U/L (45-117)
[2017-10-12 11:36] LABS: ANISOCYTOSIS 1+; PLATELET ESTIMATE DECREASED; TEAR DROP CELLS 1+
[2017-10-12 15:15] VITALS: BP 135/67; PULSE 77; TEMP 98.2
== END 2017-10-12 12:05 | disposition home or self-care (01) ==
LOC: JONCCHEMO 07:20 → J7W 09:54 → JONCCHEMO 12:05
PROVIDERS: ATTEND Internal Medicine Hematology & Oncology
PROC: 3E01305 Introduction of Other Antineoplastic into Subcutaneous Tissue, Percutaneous Approach (ICD-10-PCS; principal; 2017-10-12)
PROC: 3E033GC Introduction of Other Therapeutic Substance into Peripheral Vein, Percutaneous Approach (ICD-10-PCS; 2017-10-12)
DX: Z51.11 Encounter for antineoplastic chemotherapy (principal); C50.919 Malignant neoplasm of unspecified site of unspecified female breast; C79.51 Secondary malignant neoplasm of bone
CPT/HCPCS: 36415; 80053; 80076; 83735; 85025; 96365; 96401; 96402; 96415; 96417; J3489; J9395

== ENCOUNTER 2017-11-01 11:34 | Day surgery (SDC) | payer BC ==
[2017-11-01 13:00] LABS: BASO % 1.4 % (0-2.0); EOS % 1.1 % (0-4.5); LYMPH % 31.5 % (8-40); MCH 31.4 pg (25.7-33.7); MCHC 33.1 g/dl (32.0-36.0); MEAN CELL VOLUME 94.8 fl (80-96); MEAN PLT VOLUME 8.5 fl (7.5-11.1); MONO % 3.5 % (3.8-10.2); NEUT % 62.5 % (42.8-82.8); PLATELET COUNT 63 K/MM3 (134-434); RBC 2.21 M/mm3 (3.60-5.2); RDW 18.1 % (11.6-15.6)
[2017-11-01 13:14] LABS: HEMOGLOBIN 6.9 GM/dL (10.7-15.3); WHITE BLOOD COUNT 1.3 K/mm3 (4.0-10.0)
[2017-11-01 13:26] LABS: ALBUMIN 2.7 g/dl (3.4-5.0); ALK PHOS 107 U/L (45-117); ANION GAP 11 (8-16); BLOOD UREA NITROGEN 19 mg/dL (7-18); CALCIUM 7.6 mg/dL (8.5-10.1); CHLORIDE 109 mmol/L (98-107); CO2 22 mmol/L (21-32); CREATININE 1.2 mg/dL (0.55-1.02); GLUCOSE,RANDOM 160 mg/dL (74-106); MAGNESIUM 2.1 mg/dL (1.8-2.4); POTASSIUM 3.5 mmol/L (3.5-5.1); SGOT/AST 59 U/L (15-37); SGPT/ALT 33 U/L (12-78); SODIUM 142 mmol/L (136-145); TOT PROT 5.4 g/dl (6.4-8.2)
[2017-11-01] MEDS ORDERED: FUROSEMIDE 40 MG/4 ML INJECTABLE VIAL IVPUSH ONE (14:00)
--- NOTE | 2017-11-01 14:34 | HP ---
Satellite [facility] - Chief Complaint History of Present Illness: here for PRBCs. mBreast ca on ibrance. History Source: Patient, Medical Record - Past Medical History Allergies/Adverse Reactions: Allergies Allergy/AdvReac Type Severity Reaction Status Date / Time codeine [Codeine] Allergy Severe Difficulty Verified 08/22/16 14:20 Breathing hydrocodone bitartrate Allergy Severe Hives Verified 08/22/16 14:20 [From Vicodin] oxycodone [Oxycodone] Allergy Severe Vomiting Verified 08/22/16 14:20 Cardiovascular: Yes: HTN Gastrointestinal: Yes: GERD Heme/Onc: Yes: Anemia, Cancer, Other Musculoskeletal: Yes: Other (right leg pain S/P right leg pathologic fx with repair; s/p RT to left hip; left shoulder pains and lumosacral spine pains) Endocrine: Yes: Hypothyroidism - Current Medications Current Medications: Home Medications Medication Instructions Recorded Cholecalciferol (Vitamin D3) 2,000 unit PO DAILY 01/18/13 [Vitamin D -] Levothyroxine [Synthroid -] 50 mcg PO DAILY 01/18/13 Metoprolol Tartrate [Lopressor -] 25 mg PO DAILY 01/18/13 Multivit-Min/FA/Lycopene/Lut 1 each PO DAILY 01/18/13 [Centrum Silver Tablet] Ibuprofen [Motrin -] 800 mg PO Q6H PRN #0 tablet 08/31/16 Esomeprazole Magnesium [Nexium 20 mg PO DAILY 12/09/16 24Hr] Tamoxifen Citrate 20 mg PO DAILY 12/09/16 Ascorbate Calcium [Vitamin C] 500 mg PO HS 03/18/17 Aspirin [Driss Chewable] 81 mg PO DAILY 03/18/17 Cholecalciferol (Vitamin D3) 2,000 unit PO DAILY 03/18/17 [Vitamin D3] Ferrous Sulfate 325 mg PO HS 03/18/17 Furosemide [Lasix -] 20 mg PO DAILY 03/18/17 Multivit-Min/FA/Lycopen/Lutein 1 tab PO DAILY 03/18/17 [Centrum Silver Tablet] Satellite Physical Exam - Physical Examination General Appearance: No Distress, Pallor Lung: Clear to auscultation Heart: Regular rate & rhythm Abdomen: Soft Extremities: No edema Neurological: Alert, Oriented Satellite Impression/Plan - Impression/Plan Impression: for 2U PRBCs. neutropenic precautions --described to her.
[2017-11-01] MEDS ORDERED: FUROSEMIDE 40 MG/4 ML INJECTABLE VIAL ONE (17:00)
[2017-11-01 22:55] VITALS: PULSE 62
[2017-11-01 23:04] VITALS: BP 119/67; TEMP 98.2
== END 2017-11-01 23:30 | disposition home or self-care (01) ==
LOC: JONCBLOOD 11:34 → J7W 12:02 → JONCBLOOD 23:30
PROVIDERS: ATTEND Internal Medicine Hematology & Oncology
PROC: 30233N1 Transfusion of Nonautologous Red Blood Cells into Peripheral Vein, Percutaneous Approach (ICD-10-PCS; principal; 2017-11-01)
PROC: 3E033GC Introduction of Other Therapeutic Substance into Peripheral Vein, Percutaneous Approach (ICD-10-PCS; 2017-11-01)
DX: C50.919 Malignant neoplasm of unspecified site of unspecified female breast (principal); C75.1 Malignant neoplasm of pituitary gland; I10 Essential (primary) hypertension; K21.9 Gastro-esophageal reflux disease without esophagitis; D64.9 Anemia, unspecified; D69.6 Thrombocytopenia, unspecified; D70.9 Neutropenia, unspecified
CPT/HCPCS: 36415; 36430; 80053; 83735; 85025; 86850; 86900; 86901; 86922; P9038; P9058

== ENCOUNTER 2017-11-11 07:22 | Inpatient (IN) | payer BC ==
[2017-11-11] MEDS ORDERED: ZOLEDRONIC ACID 4 MG in SODIUM CHLORIDE 100 ML IVPB ONE (09:00)
[2017-11-11] MEDS ORDERED: FULVESTRANT 250 MG/5 ML SYRINGE IM ONE (10:00)
[2017-11-11] MEDS ORDERED: FUROSEMIDE 40 MG TABLET (FP) PO SCH (10:30)
[2017-11-11 10:55] LABS: ANION GAP 10 (8-16); BLOOD UREA NITROGEN 16 mg/dL (7-18); CALCIUM 7.3 mg/dL (8.5-10.1); CHLORIDE 109 mmol/L (98-107); CO2 22 mmol/L (21-32); CREATININE 0.9 mg/dL (0.55-1.02); GLUCOSE,RANDOM 125 mg/dL (74-106); MAGNESIUM 2.1 mg/dL (1.8-2.4); POTASSIUM 3.5 mmol/L (3.5-5.1); SODIUM 141 mmol/L (136-145)
[2017-11-11 10:59] LABS: ALBUMIN 2.6 g/dl (3.4-5.0); BILIRUBIN,DIRECT 0.5 mg/dL (0.0-0.2); BILIRUBIN,TOTAL 1.3 mg/dL (0.2-1.0); TOT PROT 5.3 g/dl (6.4-8.2)
[2017-11-11 13:10] LABS: BASO % 1.3 % (0-2.0); EOS % 0.4 % (0-4.5); HEMATOCRIT 23.2 % (32.4-45.2); LYMPH % 24.4 % (8-40); MCHC 34.6 g/dl (32.0-36.0); MEAN CELL VOLUME 95.2 fl (80-96); MEAN PLT VOLUME 9.6 fl (7.5-11.1); MONO % 11.3 % (3.8-10.2); NEUT % 62.6 % (42.8-82.8); PLATELET COUNT 49 K/MM3 (134-434); RBC 2.44 M/mm3 (3.60-5.2)
[2017-11-11 13:14] LABS: WHITE BLOOD COUNT 1.3 K/mm3 (4.0-10.0)
[2017-11-11] MEDS ORDERED: ONDANSETRON 4 MG/2 ML VIAL IVPB ONE (17:45)
[2017-11-11 21:33] LABS: URINE APPEARANCE CLEAR; URINE BILIRUBIN NEGATIVE (NEGATIVE); URINE BLOOD NEGATIVE (NEGATIVE); URINE COLOR LTYELLOW; URINE GLUCOSE (UA) NEGATIVE (NEGATIVE); URINE KETONE NEGATIVE (NEGATIVE); URINE LEUK ESTERASE NEGATIVE (NEGATIVE); URINE NITRITE NEGATIVE (NEGATIVE); URINE PROTEIN NEGATIVE (NEGATIVE)
[2017-11-11 21:38] LABS: HEMATOCRIT 24.8 % (32.4-45.2); HEMOGLOBIN 8.5 GM/dL (10.7-15.3); MCH 31.9 pg (25.7-33.7); MCHC 34.4 g/dl (32.0-36.0); MEAN CELL VOLUME 92.8 fl (80-96); MEAN PLT VOLUME 9.4 fl (7.5-11.1); RBC 2.67 M/mm3 (3.60-5.2)
[2017-11-11 21:46] LABS: WHITE BLOOD COUNT 1.5 K/mm3 (4.0-10.0)
[2017-11-11 21:47] LABS: PLATELET COUNT 46 K/MM3 (134-434)
[2017-11-12] MEDS ORDERED: ACETAMINOPHEN 325 MG TABLET (FP) PO ONE (02:00)
[2017-11-12 08:17] LABS: HEMATOCRIT 26.8 % (32.4-45.2); HEMOGLOBIN 9.5 GM/dL (10.7-15.3); MCH 32.6 pg (25.7-33.7); MCHC 35.5 g/dl (32.0-36.0); MEAN CELL VOLUME 91.9 fl (80-96); MEAN PLT VOLUME 9.3 fl (7.5-11.1); PLATELET COUNT 38 K/MM3 (134-434); RBC 2.91 M/mm3 (3.60-5.2); RDW 15.1 % (11.6-15.6)
[2017-11-12 08:30] LABS: WHITE BLOOD COUNT 1.2 K/mm3 (4.0-10.0)
[2017-11-12] MEDS ORDERED: ONDANSETRON 4 MG/2 ML VIAL IVPUSH ONE (20:30)
[2017-11-13 09:00] LABS: BASO % 0.9 % (0-2.0); EOS % 1.3 % (0-4.5); HEMATOCRIT 34.8 % (32.4-45.2); HEMOGLOBIN 12.2 GM/dL (10.7-15.3); LYMPH % 39.1 % (8-40); MCH 31.9 pg (25.7-33.7); MCHC 34.9 g/dl (32.0-36.0); MEAN CELL VOLUME 91.4 fl (80-96); MEAN PLT VOLUME 9.2 fl (7.5-11.1); MONO % 10.4 % (3.8-10.2); NEUT % 48.3 % (42.8-82.8); PLATELET COUNT 42 K/MM3 (134-434); RBC 3.81 M/mm3 (3.60-5.2); RDW 15.2 % (11.6-15.6)
[2017-11-13 09:07] LABS: WHITE BLOOD COUNT 1.3 K/mm3 (4.0-10.0)
[2017-11-13 12:52] VITALS: BP 111/81; PULSE 69; TEMP 98.4
--- NOTE | 2017-11-13 13:01 | PN ---
Progress Note (short form) - Note Progress Note: 66 year old female here for PRBC admitted on Tuesday Patient seen and examined -She received 4 units over 2 days -She is asymptomatic -no signs of fluid overload and she is comfortable No complaints Vital Signs Period Temp Pulse Resp BP Sys/Zayas Pulse Ox Last 24 Hr 98.0 F-98.9 F 64-69 18-20 111-133/60-81 96-97 AFVSS HEENT: SHAYNA, EOM Intact Cor: RSR, No murmurs, No gallops Lungs: Clear to P&A.scattered rhonchi Abd: Soft, Normal bowel sounds, No organomegaly Ext:1+ edema Skin: No rashes, Integument intact CBC, BMP 11/13/17 08:50 11/11/17 10:00 Labs: reviewed A/P -can go home today -neutropenic precautions -anemia workup as an outpatient
[2017-11-13 14:08] LABS: SERUM IRON SATURATION > 92 % (15-55); TOTAL IRON BINDING CAPACITY < 210 ug/dL (250-450); UIBC < 17 ug/dL (118-369)
== END 2017-11-13 13:35 | disposition home or self-care (01) | DRG 812 ==
LOC: JONCCHEMO 07:22 → J7W 09:43 → JONCCHEMO 11-13 12:00 → J7W 11-13 12:02
PROVIDERS: ADMIT Internal Medicine Hematology & Oncology; ATTEND Internal Medicine Hematology & Oncology
DX: D64.9 Anemia, unspecified (principal)
CPT/HCPCS: 36415; 36430; 36511; 80048; 80076; 81003; 82728; 83540; 83550; 83735; 85025; 85027; 85044; 86850; 86900; 86901; 86922; 87086; 96402; 96417; J3489; J9395; P9038; P9058

== ENCOUNTER 2017-11-14 11:55 | Day surgery (SDC) | payer BC ==
[2017-11-14 12:20] VITALS: BP 131/83; PULSE 79; TEMP 98.6
[2017-11-14 12:24] LABS: BASO % 0.8 % (0-2.0); EOS % 0.7 % (0-4.5); HEMATOCRIT 37.6 % (32.4-45.2); HEMOGLOBIN 12.9 GM/dL (10.7-15.3); LYMPH % 22.2 % (8-40); MCH 31.7 pg (25.7-33.7); MCHC 34.3 g/dl (32.0-36.0); MEAN CELL VOLUME 92.6 fl (80-96); MEAN PLT VOLUME 9.9 fl (7.5-11.1); MONO % 6.3 % (3.8-10.2); PLATELET COUNT 51 K/MM3 (134-434); RBC 4.07 M/mm3 (3.60-5.2); RDW 15.9 % (11.6-15.6)
[2017-11-14 12:30] LABS: WHITE BLOOD COUNT 1.2 K/mm3 (4.0-10.0)
[2017-11-14 12:47] LABS: ALBUMIN 2.7 g/dl (3.4-5.0); ANION GAP 11 (8-16); BILIRUBIN,DIRECT 0.7 mg/dL (0.0-0.2); BILIRUBIN,TOTAL 1.7 mg/dL (0.2-1.0); BLOOD UREA NITROGEN 15 mg/dL (7-18); CALCIUM 7.3 mg/dL (8.5-10.1); CHLORIDE 110 mmol/L (98-107); CO2 21 mmol/L (21-32); GLUCOSE,RANDOM 143 mg/dL (74-106); MAGNESIUM 2.1 mg/dL (1.8-2.4); POTASSIUM 3.6 mmol/L (3.5-5.1); SGOT/AST 65 U/L (15-37); SGPT/ALT 27 U/L (12-78); SODIUM 142 mmol/L (136-145); TOT PROT 5.8 g/dl (6.4-8.2)
[2017-11-14 12:48] LABS: ALK PHOS 121 U/L (45-117)
[2017-11-14] MEDS ORDERED: TBO-FILGRASTIM 480 MCG/0.8 ML DISP.SYRIN SQ ONE (14:00)
== END 2017-11-14 19:00 | disposition home or self-care (01) ==
LOC: JLAB 11:55 → JONCCHEMO 11:55 → EDSTATUS 12:58 → J7W 13:14 → JONCCHEMO 19:00
PROVIDERS: ATTEND Internal Medicine Hematology & Oncology
PROC: 3E013GC Introduction of Other Therapeutic Substance into Subcutaneous Tissue, Percutaneous Approach (ICD-10-PCS; principal; 2017-11-14)
DX: C50.919 Malignant neoplasm of unspecified site of unspecified female breast (principal); C75.1 Malignant neoplasm of pituitary gland; I10 Essential (primary) hypertension; D64.9 Anemia, unspecified; D69.6 Thrombocytopenia, unspecified; Z76.89 Persons encountering health services in other specified circumstances
CPT/HCPCS: 36415; 80053; 80076; 83735; 85025; 96372; J1447

== ENCOUNTER 2017-12-14 07:30 | Inpatient (IN) | payer BC ==
[2017-12-14] MEDS ORDERED: ZOLEDRONIC ACID 4 MG in SODIUM CHLORIDE 100 ML IVPB ONE (09:00)
[2017-12-14] MEDS ORDERED: FULVESTRANT 250 MG/5 ML SYRINGE IM ONE (09:00)
[2017-12-14 10:22] LABS: HEMATOCRIT 20.3 % (32.4-45.2); MCH 32.3 pg (25.7-33.7); MCHC 33.7 g/dl (32.0-36.0); MEAN PLT VOLUME 8.8 fl (7.5-11.1); PLATELET COUNT 63 K/MM3 (134-434); RBC 2.11 M/mm3 (3.60-5.2); RDW 21.4 % (11.6-15.6); WHITE BLOOD COUNT 7.2 K/mm3 (4.0-10.0)
[2017-12-14 10:27] LABS: HEMOGLOBIN 6.8 GM/dL (10.7-15.3)
[2017-12-14 10:54] LABS: ALBUMIN 2.3 g/dl (3.4-5.0); ANION GAP 9 (8-16); BILIRUBIN,DIRECT 1.3 mg/dL (0.0-0.2); BILIRUBIN,TOTAL 2.6 mg/dL (0.2-1.0); BLOOD UREA NITROGEN 23 mg/dL (7-18); CALCIUM 7.9 mg/dL (8.5-10.1); CHLORIDE 108 mmol/L (98-107); CO2 24 mmol/L (21-32); CREATININE 0.9 mg/dL (0.55-1.02); GLUCOSE,RANDOM 116 mg/dL (74-106); MAGNESIUM 2.2 mg/dL (1.8-2.4); POTASSIUM 3.5 mmol/L (3.5-5.1); SGOT/AST 93 U/L (15-37); SGPT/ALT 26 U/L (12-78); SODIUM 141 mmol/L (136-145); TOT PROT 5.3 g/dl (6.4-8.2)
[2017-12-14 10:55] LABS: ALK PHOS 135 U/L (45-117)
[2017-12-14] MEDS ORDERED: FUROSEMIDE 40 MG/4 ML INJECTABLE VIAL IVPUSH SCH ×2 (11:45)
[2017-12-14 12:51] LABS: LDH 686 U/L (84-246)
[2017-12-14 13:27] LABS: ANISOCYTOSIS 1+; MACROCYTOSIS 1+; OVALOCYTE 1+; PLATELET ESTIMATE DECREASED; TEAR DROP CELLS 1+
[2017-12-14] MEDS ORDERED: SODIUM CHLORIDE NASAL SPRAY 44 ML BOTTLE NS PRN (14:13)
[2017-12-14 16:19] VITALS: BMI 38.3
[2017-12-14] MEDS ORDERED: FUROSEMIDE 40 MG/4 ML INJECTABLE VIAL ONE (18:16)
[2017-12-14] MEDS: ACETAMINOPHEN 325 MG TABLET (FP) PO PRN (18:26)
[2017-12-14] MEDS: POTASSIUM CHLORIDE TABS 20 MEQ TABLET.ER (FP) PO SCH ×2 (18:31→20:49)
[2017-12-14] MEDS ORDERED: ONDANSETRON 4 MG/2 ML VIAL IVPB ONE (19:00)
[2017-12-15] MEDS ORDERED: FUROSEMIDE 40 MG/4 ML INJECTABLE VIAL IVPUSH ONE ×2 (03:45→14:30)
[2017-12-15] MEDS: LEVOTHYROXINE NA 50 MCG TABLET (FP) PO SCH (06:30)
[2017-12-15] MEDS ORDERED: METOPROLOL TARTRATE 25 MG TABLET (FP) PO SCH (10:00)
[2017-12-15] MEDS ORDERED: PANTOPRAZOLE 20 MG TABLET (FP) PO SCH (10:00)
[2017-12-15 10:02] LABS: HEMATOCRIT 27.6 % (32.4-45.2); HEMOGLOBIN 9.7 GM/dL (10.7-15.3); MCHC 35.2 g/dl (32.0-36.0); MEAN PLT VOLUME 8.7 fl (7.5-11.1); PLATELET COUNT 51 K/MM3 (134-434); RBC 3.03 M/mm3 (3.60-5.2); RDW 17.7 % (11.6-15.6); WHITE BLOOD COUNT 8.1 K/mm3 (4.0-10.0)
[2017-12-15 10:32] LABS: ALBUMIN 2.4 g/dl (3.4-5.0); ANION GAP 10 (8-16); BILIRUBIN,TOTAL 3.3 mg/dL (0.2-1.0); BLOOD UREA NITROGEN 23 mg/dL (7-18); CALCIUM 8.1 mg/dL (8.5-10.1); CHLORIDE 107 mmol/L (98-107); CO2 24 mmol/L (21-32); CREATININE 1.1 mg/dL (0.55-1.02); GLUCOSE,RANDOM 158 mg/dL (74-106); MAGNESIUM 2.2 mg/dL (1.8-2.4); POTASSIUM 3.7 mmol/L (3.5-5.1); SGOT/AST 106 U/L (15-37); SGPT/ALT 27 U/L (12-78); SODIUM 141 mmol/L (136-145); TOT PROT 5.4 g/dl (6.4-8.2)
[2017-12-15 10:33] LABS: ALK PHOS 145 U/L (45-117)
[2017-12-15 10:59] LABS: HEMOGLOBIN 9.7 GM/dL (10.7-15.3); MCH 31.8 pg (25.7-33.7); MCHC 34.6 g/dl (32.0-36.0); MEAN CELL VOLUME 91.7 fl (80-96); RBC 3.05 M/mm3 (3.60-5.2); RDW 17.7 % (11.6-15.6)
[2017-12-15 11:54] LABS: ANISOCYTOSIS 1+; MACROCYTOSIS 2+; PLATELET ESTIMATE DECREASED; TARGET CELLS 1+; TEAR DROP CELLS 1+
[2017-12-15 12:21] LABS: MEAN PLT VOLUME 8.7 fl (7.5-11.1); PLATELET COUNT 50 K/MM3 (134-434)
--- NOTE | 2017-12-15 14:07 | PN ---
Progress Note (short form) - Note Progress Note: 67 y/o patient with h/o b/l breast cancer, metastatic to cervical nodes/soft tissue in the back/bones (invasive lobular cancer ER+, OH+, Her2 neg.) presently on Ibrance, but on hold due to cytopenias. on faslodex. She is admitted for pancytopenia, anemia requiring blood transfusions. Pt seen and examined. Feels weak, SOB. O/E General: Chronically ill appearing HEENT: NCAT Cor: RRR Lungs: CTA b/l ABd: RUQ tenderness Extremities: 2+ pitting edema Last Vital Signs Temp Pulse Resp BP Pulse Ox 97.8 F 69 20 97/55 100 12/15/17 13:34 12/15/17 13:34 12/15/17 13:34 12/15/17 13:34 12/15/17 09:00 CBC, BMP 12/15/17 09:45 12/15/17 09:45 Current Medications Generic Name Dose Route Start Last Admin Trade Name Freq PRN Reason Stop Dose Admin Acetaminophen 650 mg 12/14/17 11:48 12/14/17 18:26 Tylenol - PO 650 mg Q4H PRN Administration FEVER Furosemide 20 mg 12/15/17 13:55 Lasix Injection - IVPUSH 12/15/17 13:56 ONCE ONE Levothyroxine Sodium 50 mcg 12/15/17 07:00 12/15/17 06:30 Synthroid - PO 50 mcg DAILY@0700 ALVARADO Administration Metoprolol Tartrate 25 mg 12/15/17 10:00 12/15/17 09:26 Lopressor - PO 25 mg DAILY ALVARADO Administration Pantoprazole Sodium 20 mg 12/15/17 10:00 12/15/17 09:26 Protonix - PO 20 mg DAILY ALVARADO Administration Sodium Chloride 1 spray 12/14/17 14:13 [place] Nasal [place] - NS Q4H PRN NASAL CONGESTION anemia/pancytopenia r/o hemolysis ?post RT/BM involvement of cancer NINA negative. FOBT x1 positive for peripheral blood flow for GI consult US abdomen s/p 3U PRBC thus far on IV diuresis SOB/LE edema: CXR/O2/IV diuresis/Cardiology c/s defer DVT ppx for now
[2017-12-15 14:19] LABS: BILIRUBIN,DIRECT 1.5 mg/dL (0.0-0.2); LDH 806 U/L (84-246)
[2017-12-15] MEDS ORDERED: ONDANSETRON 4 MG/2 ML VIAL IVPB ONE (15:30)
[2017-12-15] MEDS: ACETAMINOPHEN 325 MG TABLET (FP) PO PRN (15:31)
[2017-12-15] MEDS ORDERED: SODIUM CHLORIDE 1,000 ML IV SCH (15:50)
[2017-12-15] MEDS ORDERED: POTASSIUM CHLORIDE TABS 10 MEQ TABLET.ER (FP) PO ONE (18:05)
--- NOTE | 2017-12-15 18:05 | CON.CARD ---
Cardiology Consult (text) - Consultation Consultation Note: CC: sob 65 yo with pmhx of htn, hl, CAD/abnormal stress test, ventricular ectopy, gerd, hypothyroid, bilat breast Ca on chemo c/b symptomatic anemia requiring regular transfusions and also with bone mets c/b pathologic fx (s/p surgical repair) and xrt to left shoulder and lumbosacral spine who for admission for blood transfusions, hospital course complicated by sob. Per nursing s/p total of 3 transfusions overnight and today. Received lasix 40 mg IV on 12/14 and 20 mg IV today. has been having sensation of abdominal fullness all afternoon. s/p zofran and tylenol. This afternoon she was being moved to the commode and subsequently developed lightheadedness/sob. Per nursing, patient appeared lethargic and weak. vitals were taken --> 81/45, P87 O2 saturation 84% on 2L nasal cannula. --> rapid response initiated. --> pt recevied 1000cc NS bolus, non-breather mask with improvement Currently patient still with abdominal discomfort and fullness. + sob, orthopnea. + LE edema. Chronic LUE lymphedema. + nausea. she has had no cp, palpitations, pnd no fcs, vomiting, diarrhea, cough, nasal congestion, vision changes, amador, rashes. sees Dr. Wells. pmhx/pshx: rotator cuff surgery. social hx: never smoker fam hx: no cmp ros: per hpi Ambulatory Orders Cholecalciferol (Vitamin D3) [Vitamin D -] 2,000 unit PO DAILY 01/18/13 Levothyroxine [Synthroid -] 50 mcg PO DAILY 01/18/13 Metoprolol Tartrate [Lopressor -] 25 mg PO DAILY 01/18/13 Multivit-Min/FA/Lycopene/Lut [Centrum Silver Tablet] 1 each PO DAILY 01/18/13 Ibuprofen [Motrin -] 800 mg PO Q6H PRN #0 tablet 08/31/16 Esomeprazole Magnesium [Nexium 24Hr] 20 mg PO DAILY 12/09/16 Tamoxifen Citrate 20 mg PO DAILY 12/09/16 Ascorbate Calcium [Vitamin C] 500 mg PO HS 03/18/17 Aspirin [Driss Chewable] 81 mg PO DAILY 03/18/17 Cholecalciferol (Vitamin D3) [Vitamin D3] 2,000 unit PO DAILY 03/18/17 Ferrous Sulfate 325 mg PO HS 03/18/17 Furosemide [Lasix -] 20 mg PO DAILY 03/18/17 Multivit-Min/FA/Lycopen/Lutein [Centrum Silver Tablet] 1 tab PO DAILY 03/18/17 Current Medications Acetaminophen (Tylenol -) 650 mg PO Q4H PRN PRN Reason: FEVER Last Admin: 12/15/17 15:31 Dose: 650 mg Folic Acid (Folic Acid -) 1 mg PO DAILY [facility] Levothyroxine Sodium (Synthroid -) 50 mcg PO DAILY@0700 [facility] Last Admin: 12/15/17 06:30 Dose: 50 mcg Metoprolol Tartrate (Lopressor -) 25 mg PO DAILY [facility] Last Admin: 12/15/17 09:26 Dose: 25 mg Pantoprazole Sodium (Protonix -) 20 mg PO DAILY [facility] Last Admin: 12/15/17 09:26 Dose: 20 mg Sodium Chloride ([place] Nasal [place] -) 1 spray NS Q4H PRN PRN Reason: NASAL CONGESTION Vital Signs - 24 hr 12/14/17 12/14/17 12/15/17 21:00 22:00 06:15 Temperature 98.2 F 98 F Pulse Rate 82 75 Respiratory 18 20 20 Rate Blood Pressure 110/57 116/51 O2 Sat by Pulse 98 Oximetry (%) 12/15/17 12/15/17 12/15/17 09:00 10:00 13:34 Temperature 97.8 F Pulse Rate 70 69 Respiratory 20 20 20 Rate Blood Pressure 131/69 97/55 O2 Sat by Pulse 100 Oximetry (%) 12/15/17 12/15/17 12/15/17 14:30 15:15 15:45 Temperature Pulse Rate 72 99 H 87 Respiratory 20 20 16 Rate Blood Pressure 116/64 132/70 81/44 O2 Sat by Pulse Oximetry (%) 12/15/17 16:15 Temperature Pulse Rate 75 Respiratory 20 Rate Blood Pressure 144/69 O2 Sat by Pulse Oximetry (%) Intake & Output 12/13/17 12/14/17 12/15/17 12/16/17 07:59 07:59 07:59 07:59 Intake Total 1650 500 Output Total 200 Balance 1450 500 Weight 245 lb NAD, calm jvd mild elevation bibasilar rales, nl eff RRR nl s1 s2 no m/r/g + bs soft nt nd 1+ edema of LE. 1+ edema of LUE (chronic lymphedema) + dp/pt no jaundice, diaphoresis. aaox3 CBC, BMP 12/15/17 09:45 12/15/17 09:45 Laboratory Tests 12/14/17 12/14/17 12/15/17 10:12 10:12 09:15 Hgb 6.8 L* D Plt Count 63 L D Band Neutrophils % 4.2 Creatinine 0.9 Calcium Magnesium Total Bilirubin 2.6 H D Direct Bilirubin 1.3 H AST 93 H ALT 26 Alkaline Phosphatase LD Total 686 H Albumin Stool Occult Blood Positive 12/15/17 09:45 Hgb Plt Count Band Neutrophils % Creatinine Calcium 8.1 L Magnesium 2.2 Total Bilirubin 3.3 H D Direct Bilirubin 1.5 H AST 106 H ALT 27 Alkaline Phosphatase 145 H LD Total 806 H Albumin 2.4 L Stool Occult Blood EKG: sr with pac's, borderline prolonged qt, non-specific t wave ab. no actue ischemic changes cxr: no acute pathology. by my review, suboptimal penetration to exclude pleural effusions. LUE duplex u/s: no dvt echo 08/11: tds. nl lv/rv size/fn. mod mac, otherwise nl valves. MPI 08/21 (madhu): No ischemic ST-T changes. Probably no ischemia (anteroapical/ apicoseptal defect improves partially; breast position differences cannot be definitively seen on raw projection images however. variable breast artifact more likely but cannot exclude superimposed anterior ischemia). Normal LVEF. Normal LV cavity size with no transient dilation. ASSESSMENT/PLAN 65 yo with pmhx of htn, hl, CAD/abnormal stress test, ventricular ectopy, gerd, hypothyroid, bilat breast Ca on chemo c/b symptomatic anemia requiring regular transfusions and also with bone mets c/b pathologic fx (s/p surgical repair) and xrt to left shoulder and lumbosacral spine who for admission for blood transfusions, hospital course complicated by sob. SOB/acute diastolic HF exacerbation - Patient appears volume overloaded, s/p multiple PRBC transfusions. However, she has a history of urinary retention and I am concerned that urinary retention may be contributing to abdominal discomfort. Would recommend waiting to redose lasix until patient has bladder scan to assess PVR. CAD/abnormal stress: -never with angina sx's -intolerant of 2 statins (nausea, elevated LFTs) -cont home BB with close bp monitoring. (BP now normalized, suspect vasovagal etiology for drop in bp while on commode). hx of freq PVCs: -well documented and quantified on holter. Patient with preserved LV fxn --> benign. -on metoprolol - lyte repletion prn prolonged qtc: - borderline prolonged. Will reassess tomorrow. If remains prolonged would recommend avoiding qtc prolonging drugs where possible. HTN: -change daily lopressos, which is a BID medication, to succinate which can be dosed daily HPL: -intolerant of 2 statins (baseline LDL 140-150s range) and now with lft abnormalities. off statins. metastatic breast ca/anemia/thrombocytopenia - per [facility]
[2017-12-15] MEDS: FOLIC ACID 1 MG TABLET (FP) PO SCH (18:23)
[2017-12-15] MEDS: SODIUM CHLORIDE 1,000 ML IV SCH ×2 (18:45→22:48)
[2017-12-15 20:37] LABS: HEMATOCRIT 28.4 % (32.4-45.2); MCHC 35.2 g/dl (32.0-36.0); MEAN PLT VOLUME 9.4 fl (7.5-11.1); PLATELET COUNT 59 K/MM3 (134-434); RBC 3.12 M/mm3 (3.60-5.2); RDW 18.1 % (11.6-15.6); WHITE BLOOD COUNT 6.5 K/mm3 (4.0-10.0)
[2017-12-15 20:55] LABS: INR 1.49 (0.82-1.09); PROTHROMBIN TIME (PATIENT) 16.8 SEC (9.98-11.88)
[2017-12-15 20:58] LABS: ACTIVATED PTT 26.3 SECONDS (26.9-34.4)
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
[2017-12-15 21:18] LABS: PLATELET ESTIMATE DECREASED
[2017-12-15] MEDS ORDERED: PHYTONADIONE 10 MG/1 ML AMP IVPB ONE (21:41)
[2017-12-15] MEDS: PANTOPRAZOLE 40 MG TABLET (FP) PO SCH (22:56)
[2017-12-16 03:41] LABS: URINE APPEARANCE CLEAR; URINE BILIRUBIN NEGATIVE (<2.0 mg/dL); URINE BLOOD 1+ (NEGATIVE); URINE COLOR AMBER; URINE GLUCOSE (UA) NEGATIVE (NEGATIVE); URINE KETONE NEGATIVE (NEGATIVE); URINE LEUK ESTERASE NEGATIVE (NEGATIVE); URINE NITRITE NEGATIVE (NEGATIVE); URINE UROBILINOGEN 4.0 E.U/dl mg/dL (0.2-1.0)
[2017-12-16 03:47] LABS: URINE PROTEIN 1+ (NEGATIVE)
[2017-12-16 03:49] LABS: EPI CELLS RARE /HPF (FEW); URINE MUCUS RARE
[2017-12-16] MEDS: ACETAMINOPHEN 325 MG TABLET (FP) PO PRN ×2 (04:55→12:26)
[2017-12-16] MEDS: LEVOTHYROXINE NA 50 MCG TABLET (FP) PO SCH (06:52)
[2017-12-16 07:55] LABS: HEMATOCRIT 23.4 % (32.4-45.2); HEMOGLOBIN 8.4 GM/dL (10.7-15.3); MCH 32.4 pg (25.7-33.7); MCHC 35.7 g/dl (32.0-36.0); MEAN CELL VOLUME 90.5 fl (80-96); MEAN PLT VOLUME 9.3 fl (7.5-11.1); PLATELET COUNT 41 K/MM3 (134-434); RBC 2.59 M/mm3 (3.60-5.2); RDW 17.9 % (11.6-15.6); WHITE BLOOD COUNT 7.3 K/mm3 (4.0-10.0)
[2017-12-16 08:05] LABS: INR 1.58 (0.82-1.09); PROTHROMBIN TIME (PATIENT) 17.9 SEC (9.98-11.88)
[2017-12-16 08:08] LABS: SERUM IRON SATURATION > 92 % (15-55); TOTAL IRON BINDING CAPACITY < 219 ug/dL (250-450); UIBC < 17 ug/dL (118-369)
[2017-12-16 08:18] LABS: BILIRUBIN,DIRECT 2.2 mg/dL (0.0-0.2)
[2017-12-16 08:22] LABS: ALBUMIN 2.1 g/dl (3.4-5.0); ANION GAP 9 (8-16); BILIRUBIN,TOTAL 3.8 mg/dL (0.2-1.0); BLOOD UREA NITROGEN 26 mg/dL (7-18); CALCIUM 7.2 mg/dL (8.5-10.1); CHLORIDE 111 mmol/L (98-107); CO2 22 mmol/L (21-32); CREATININE 0.9 mg/dL (0.55-1.02); GLUCOSE,RANDOM 114 mg/dL (74-106); POTASSIUM 3.6 mmol/L (3.5-5.1); SGOT/AST 93 U/L (15-37); SGPT/ALT 23 U/L (12-78); SODIUM 142 mmol/L (136-145); TOT PROT 4.7 g/dl (6.4-8.2)
[2017-12-16 08:23] LABS: ALK PHOS 121 U/L (45-117)
[2017-12-16 08:33] LABS: LDH 823 U/L (84-246)
--- NOTE | 2017-12-16 09:21 | EKG ---
Test Reason : Blood Pressure : / mmHG Vent. Rate : 077 BPM Atrial Rate : 077 BPM P-R Int : 146 ms QRS Dur : 082 ms QT Int : 434 ms P-R-T Axes : 049 017 030 degrees QTc Int : 491 ms SINUS RHYTHM WITH PREMATURE ATRIAL COMPLEXES NONSPECIFIC ST ABNORMALITY PROLONGED QT ABNORMAL ECG Confirmed by JARED MIR MD ([id number]) on 12/16/2017 9:21:00 AM Referred By: CHIDI COSTA Confirmed By:JARED MIR MD
[2017-12-16 10:37] LABS: ANISOCYTOSIS 1+; OVALOCYTE 1+; PLATELET ESTIMATE DECREASED
--- NOTE | 2017-12-16 12:17 | PN ---
Progress Note (short form) - Note Progress Note: Patient seen and examined. Overnight events noted. Pt says she feels OK, she has no back pain, +abd pain. she says she urinated about 300cc. No bowel incontinence. O/E General: Chronically ill appearing HEENT: NCAT Cor: RRR Lungs: CTA b/l ABd: RUQ tenderness Extremities: 2+ pitting edema Temp Pulse Resp BP Pulse Ox 98.2 F 82 18 146/71 96 12/16/17 06:32 12/16/17 06:32 12/16/17 06:32 12/16/17 06:32 12/15/17 21:00 CBC, BMP 12/16/17 07:10 12/16/17 07:10 Current Medications Generic Name Dose Route Start Last Admin Trade Name Freq PRN Reason Stop Dose Admin Acetaminophen 650 mg 12/14/17 11:48 12/16/17 04:55 Tylenol - PO 650 mg Q4H PRN Administration FEVER Folic Acid 1 mg 12/15/17 15:45 12/15/17 18:23 Folic Acid - PO 1 mg DAILY ALVARADO Administration Sodium Chloride 1,000 mls @ 50 mls/hr 12/15/17 18:30 12/15/17 22:48 Normal Saline - IV 50 mls/hr ASDIR ALVARADO Administration Levothyroxine Sodium 50 mcg 12/15/17 07:00 12/16/17 06:52 Synthroid - PO 50 mcg DAILY@0700 ALVARADO Administration Metoprolol Succinate 25 mg 12/16/17 10:00 Toprol Xl - PO DAILY ALVARADO Pantoprazole Sodium 40 mg 12/15/17 22:00 12/15/17 22:56 Protonix - PO 40 mg BID ALVARADO Administration Prednisone 50 mg 12/16/17 10:15 Deltasone - PO BID ALVAARDO Sodium Chloride 1 spray 12/14/17 14:13 [place] Nasal [place] - NS Q4H PRN NASAL CONGESTION MAHA and thrombocytopenia,likely from her underlying worsening metastatic breast cancer. Cannot rule out Bone marrow involvement of breast cancer NEW liver mets-- reason for Jaundice/abn LFTs/INR may be component to cause hemolysis Urinary retention diastolic Heart failure start prednisone 1mg/kg continue folate CT a/p MR spine due to urinary retention, in the setting of extensive bony disease. consult appreciate all consultants involved. discussed therapeutic case manager for Ascites/Liver tests Systemic Rx further ?challenge due to cytopenias, will re-eval on a daily basis. detailed discussion with the patient on the multitude of active issues, she understands. d/w RN.
[2017-12-16] MEDS: metoPROLOL SUCCINATE 25 MG TAB.SR.24H (FP) PO SCH (12:25)
[2017-12-16] MEDS: FOLIC ACID 1 MG TABLET (FP) PO SCH (12:25)
[2017-12-16] MEDS: predniSONE 20 MG TABLET (UD) PO SCH ×2 (12:26→22:43)
[2017-12-16] MEDS: PANTOPRAZOLE 40 MG TABLET (FP) PO SCH ×2 (12:26→22:43)
--- NOTE | 2017-12-16 13:34 | PN ---
GI Progress Note Subjective: GI NOte: Source of anemia proves to be hemolysis. EGD and colonoscopy cancelled. Her sonogram and CT reveal liver metastases. Discussed case with Dr Escobar. - Objective Vital Signs: Vital Signs Temperature 98.2 F 12/16/17 06:32 Pulse Rate 82 12/16/17 06:32 Respiratory Rate 18 12/16/17 06:32 Blood Pressure 146/71 12/16/17 06:32 O2 Sat by Pulse Oximetry (%) 96 12/15/17 21:00 Laboratory Tests 12/15/17 12/16/17 12/16/17 19:45 07:10 07:10 Total Bilirubin 3.8 H Direct Bilirubin 2.2 H GGT 192 H AST 93 H ALT 23 Alkaline Phosphatase 121 H Ammonia 122.10 H Constitutional: Calm ...Auscultate: Yes: Normoactive Bowel Sounds ...Palpate: Yes: Soft, Other (nontender) Labs: CBC, BMP 12/16/17 07:10 12/16/17 07:10 INR, PTT INR 1.58 (0.82-1.09) H 12/16/17 07:10 Problem List - Problems (1) Jaundice Assessment/Plan: Jaundice appears to reflect liver metastases and perhaps an indirect component from hemolysis. I informed Dot of this finding. Code(s): R17 - UNSPECIFIED JAUNDICE (2) Occult blood in stools Code(s): R19.5 - OTHER FECAL ABNORMALITIES (3) Family history of malignant neoplasm of colon Code(s): Z80.0 - FAMILY HISTORY OF MALIGNANT NEOPLASM OF DIGESTIVE ORGANS (4) Family history of malignant neoplasm of stomach Code(s): Z80.0 - FAMILY HISTORY OF MALIGNANT NEOPLASM OF DIGESTIVE ORGANS (5) Diverticulosis Code(s): K57.90 - DVRTCLOS OF INTEST, PART UNSP, W/O PERF OR ABSCESS W/O BLEED (6) Chronic disease anemia Assessment/Plan: Anemia attributable to hemolysis. Discussed wt Dr. Escoabr. Code(s): D63.8 - ANEMIA IN OTHER CHRONIC DISEASES CLASSIFIED ELSEWHERE
[2017-12-16] MEDS ORDERED: POTASSIUM CHLORIDE TABS 20 MEQ TABLET.ER (FP) PO ONE (14:17)
--- NOTE | 2017-12-16 14:28 | PN ---
Progress Note (short form) - Note Progress Note: CC: sob S: Patient noted to have + PVR on bladder scan overnight. Hubbard was placed/ adjusted with minimal uop. bladder scan confirmed residual pvr despite hubbard. Hubbard has since been removed. sob back to baseline. no cp, palps, dizziness. Current Medications Acetaminophen (Tylenol -) 650 mg PO Q4H PRN PRN Reason: FEVER Last Admin: 12/16/17 12:26 Dose: 650 mg Folic Acid (Folic Acid -) 1 mg PO DAILY [facility] Last Admin: 12/16/17 12:25 Dose: 1 mg Sodium Chloride (Normal Saline -) 1,000 mls @ 50 mls/hr IV ASDIR [facility] Last Admin: 12/15/17 22:48 Dose: 50 mls/hr Levothyroxine Sodium (Synthroid -) 50 mcg PO DAILY@0700 [facility] Last Admin: 12/16/17 06:52 Dose: 50 mcg Metoprolol Succinate (Toprol Xl -) 25 mg PO DAILY [facility] Last Admin: 12/16/17 12:25 Dose: 25 mg Pantoprazole Sodium (Protonix -) 40 mg PO BID [facility] Last Admin: 12/16/17 12:26 Dose: 40 mg Prednisone (Deltasone -) 50 mg PO BID [facility] Last Admin: 12/16/17 12:26 Dose: 50 mg Sodium Chloride ([place] Nasal [place] -) 1 spray NS Q4H PRN PRN Reason: NASAL CONGESTION Vital Signs - 24 hr 12/15/17 12/15/17 12/15/17 14:30 15:15 15:50 Temperature Pulse Rate 72 99 H 87 Respiratory 20 20 16 Rate Blood Pressure 116/64 132/70 81/44 O2 Sat by Pulse Oximetry (%) 12/15/17 12/15/17 12/15/17 16:15 18:30 21:00 Temperature Pulse Rate 75 107 H Respiratory 20 18 18 Rate Blood Pressure 144/69 144/83 O2 Sat by Pulse 96 Oximetry (%) 12/15/17 12/16/17 12/16/17 22:00 01:49 06:32 Temperature 98 F 98.8 F 98.2 F Pulse Rate 80 83 82 Respiratory 18 18 18 Rate Blood Pressure 123/59 134/70 146/71 O2 Sat by Pulse Oximetry (%) 12/16/17 14:08 Temperature 98.4 F Pulse Rate 78 Respiratory 20 Rate Blood Pressure 126/59 O2 Sat by Pulse Oximetry (%) Intake & Output 12/14/17 12/15/17 12/16/17 12/17/17 07:59 07:59 07:59 07:59 Intake Total 1650 1250 200 Output Total 200 200 50 Balance 1450 1050 150 Weight 245 lb 246 lb 8 oz NAD, calm jvd mild elevation bibasilar rales, nl eff RRR nl s1 s2 no m/r/g + bs soft nt nd 1+ edema of LE. 1+ edema of LUE (chronic lymphedema) + dp/pt no jaundice, diaphoresis. aaox3 CBC, BMP 12/16/17 07:10 12/16/17 07:10 Laboratory Tests 12/15/17 12/15/17 12/15/17 09:15 09:45 19:45 Lactic Acid Magnesium 2.2 Total Bilirubin Direct Bilirubin GGT AST ALT Alkaline Phosphatase Ammonia 122.10 H LD Total Albumin Urine Urobilinogen Stool Occult Blood Positive 12/15/17 12/16/17 12/16/17 19:45 03:20 07:10 Lactic Acid 2.4 H* Magnesium Total Bilirubin 3.8 H Direct Bilirubin GGT AST 93 H ALT 23 Alkaline Phosphatase 121 H Ammonia LD Total 823 H Albumin 2.1 L Urine Urobilinogen 4.0 e.u/dl H Stool Occult Blood 12/16/17 07:10 Lactic Acid Magnesium Total Bilirubin Direct Bilirubin 2.2 H GGT 192 H AST ALT Alkaline Phosphatase Ammonia LD Total Albumin Urine Urobilinogen Stool Occult Blood EKG: sr with pac's, borderline prolonged qt, non-specific t wave ab. no actue ischemic changes cxr: no acute pathology. by my review, suboptimal penetration to exclude pleural effusions. CT abd/pelvis: small bilateral pleural effusions L > R. No infiltrates/ masses. mod ascites. new hepatic lesions susp for mets. Mild bilateral hydronephrosis. extensive bony mets diffusely. LUE duplex u/s: no dvt echo 08/11: tds. nl lv/rv size/fn. mod mac, otherwise nl valves. MPI 08/21 (madhu): No ischemic ST-T changes. Probably no ischemia (anteroapical/ apicoseptal defect improves partially; breast position differences cannot be definitively seen on raw projection images however. variable breast artifact more likely but cannot exclude superimposed anterior ischemia). Normal LVEF. Normal LV cavity size with no transient dilation. ASSESSMENT/PLAN 65 yo with pmhx of htn, hl, CAD/abnormal stress test, ventricular ectopy, gerd, hypothyroid, bilat breast Ca on chemo c/b symptomatic anemia requiring regular transfusions and also with bone mets c/b pathologic fx (s/p surgical repair) and xrt to left shoulder and lumbosacral spine who for admission for blood transfusions, hospital course complicated by sob. SOB/acute diastolic HF exacerbation - Patient appears volume overloaded, s/p multiple PRBC transfusions. However, she has a history of urinary retention and noted to have ++ abdominal discomfort with urinary retention here (no improvement with hubbard). Per [facility], work up ongiong, has plan for mri of spine and urology consult. - since patient reasonably asx. Would defer lasix until further work up of urinary retention in order to prevent worsening of obstruction. CAD/abnormal stress: -never with angina sx's -intolerant of 2 statins (nausea, elevated LFTs) -cont home BB with close bp monitoring. (BP now normalized, suspect vasovagal etiology for drop in bp while on commode). hx of freq PVCs: -well documented and quantified on holter. Patient with preserved LV fxn --> benign. -on metoprolol - lyte repletion prn prolonged qtc: - borderline prolonged. Repeat ekg pending. If remains prolonged would recommend avoiding qtc prolonging drugs where possible. HTN: - cont' toprol HPL: -intolerant of 2 statins (baseline LDL 140-150s range) and now with lft abnormalities. off statins. metastatic breast ca/anemia/thrombocytopenia/hemolysis - per [facility]
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
[2017-12-16] MEDS: SODIUM CHLORIDE 1,000 ML IV SCH (22:46)
[2017-12-17] MEDS: LEVOTHYROXINE NA 50 MCG TABLET (FP) PO SCH (06:50)
[2017-12-17 07:35] LABS: HEMATOCRIT 25.4 % (32.4-45.2); HEMOGLOBIN 8.7 GM/dL (10.7-15.3); MCH 31.6 pg (25.7-33.7); MCHC 34.4 g/dl (32.0-36.0); MEAN CELL VOLUME 91.8 fl (80-96); MEAN PLT VOLUME 9.8 fl (7.5-11.1); PLATELET COUNT 44 K/MM3 (134-434); RBC 2.76 M/mm3 (3.60-5.2); RDW 19.4 % (11.6-15.6); WHITE BLOOD COUNT 12.1 K/mm3 (4.0-10.0)
[2017-12-17 07:59] LABS: CHLORIDE 109 mmol/L (98-107); SODIUM 140 mmol/L (136-145)
[2017-12-17 08:16] LABS: ALBUMIN 2.2 g/dl (3.4-5.0); ALK PHOS 123 U/L (45-117); ANION GAP 9 (8-16); BLOOD UREA NITROGEN 28 mg/dL (7-18); CALCIUM 7.7 mg/dL (8.5-10.1); CO2 22 mmol/L (21-32); GLUCOSE,RANDOM 146 mg/dL (74-106); SGOT/AST 102 U/L (15-37); SGPT/ALT 25 U/L (12-78); TOT PROT 5.4 g/dl (6.4-8.2)
[2017-12-17 09:16] LABS: LDH 1029 U/L (84-246)
[2017-12-17] MEDS ORDERED: PT OWN MED DRAWER 7, Y5N ONE (09:49)
[2017-12-17] MEDS: predniSONE 20 MG TABLET (UD) PO SCH ×2 (09:52→23:11)
[2017-12-17] MEDS: PANTOPRAZOLE 40 MG TABLET (FP) PO SCH ×2 (09:55→23:12)
[2017-12-17] MEDS: FOLIC ACID 1 MG TABLET (FP) PO SCH (09:55)
[2017-12-17] MEDS: metoPROLOL SUCCINATE 25 MG TAB.SR.24H (FP) PO SCH (09:56)
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
[2017-12-17 12:06] LABS: PLATELET ESTIMATE DECREASED
--- NOTE | 2017-12-17 16:53 | PN ---
Progress Note (short form) - Note Progress Note: Patient seen and examined. now says she has back pain. otherwise no complains. O/E General: NAD HEENT: NCAT Cor: RRR Lungs: CTA b/l ABd: RUQ tenderness Extremities: 2+ pitting edema Last Vital Signs Temp Pulse Resp BP Pulse Ox 97.9 F 77 20 121/62 93 L 12/17/17 14:00 12/17/17 14:00 12/17/17 14:00 12/17/17 14:00 12/17/17 09:00 CBC, BMP 12/17/17 06:00 12/17/17 06:00 Current Medications Generic Name Dose Route Start Last Admin Trade Name Freq PRN Reason Stop Dose Admin Acetaminophen 650 mg 12/14/17 11:48 12/16/17 12:26 Tylenol - PO 650 mg Q4H PRN Administration FEVER Folic Acid 1 mg 12/15/17 15:45 12/17/17 09:55 Folic Acid - PO 1 mg DAILY ALVARADO Administration Sodium Chloride 1,000 mls @ 50 mls/hr 12/15/17 18:30 12/16/17 22:46 Normal Saline - IV 50 mls/hr ASDIR ALVARADO Administration Lactulose 20 gm 12/16/17 17:51 Cephulac (Oral Use) PO TID PRN CONSTIPATION Levothyroxine Sodium 50 mcg 12/15/17 07:00 12/17/17 06:50 Synthroid - PO 50 mcg DAILY@0700 ALVARADO Administration Metoprolol Succinate 25 mg 12/16/17 10:00 12/17/17 09:56 Toprol Xl - PO 25 mg DAILY ALVARADO Administration Pantoprazole Sodium 40 mg 12/15/17 22:00 12/17/17 09:55 Protonix - PO 40 mg BID ALVARADO Administration Prednisone 50 mg 12/16/17 10:15 12/17/17 09:52 Deltasone - PO 50 mg BID ALVARADO Administration Sodium Chloride 1 spray 12/14/17 14:13 [place] Nasal [place] - NS Q4H PRN NASAL CONGESTION MAHA and thrombocytopenia, likely from her underlying worsening metastatic breast cancer. Cannot rule out Bone marrow involvement of breast cancer NEW liver mets-- reason for Jaundice/abn LFTs/INR may be component to cause hemolysis Urinary retention diastolic Heart failure c/w prednisone MR spine pending, in the setting of extensive bony disease. consult appreciated Systemic Rx further ?challenge due to cytopenias, will re-eval on a daily basis , to consider taxol weekly. will trenton Perkins.
[2017-12-17] MEDS: SODIUM CHLORIDE 1,000 ML IV SCH (18:30)
[2017-12-17] MEDS ORDERED: ZOLPIDEM TARTRATE 5 MG TABLET PO ONE (23:45)
[2017-12-18 00:10] LABS: HBSAG SCREEN Negative (Negative); HEP A AB, IGM Negative (Negative); HEP B CORE AB, TOT Negative (Negative)
[2017-12-18] MEDS: LEVOTHYROXINE NA 50 MCG TABLET (FP) PO SCH (06:42)
[2017-12-18 08:25] LABS: INR 1.48 (0.82-1.09); PROTHROMBIN TIME (PATIENT) 16.7 SEC (9.98-11.88)
[2017-12-18 08:27] LABS: CHLORIDE 110 mmol/L (98-107); POTASSIUM 3.9 mmol/L (3.5-5.1); SODIUM 140 mmol/L (136-145)
[2017-12-18 08:48] LABS: ALBUMIN 2.2 g/dl (3.4-5.0); ALK PHOS 123 U/L (45-117); ANION GAP 9 (8-16); BILIRUBIN,TOTAL 3.6 mg/dL (0.2-1.0); BLOOD UREA NITROGEN 31 mg/dL (7-18); CALCIUM 7.5 mg/dL (8.5-10.1); CO2 21 mmol/L (21-32); GLUCOSE,RANDOM 151 mg/dL (74-106); SGOT/AST 102 U/L (15-37); SGPT/ALT 28 U/L (12-78); TOT PROT 5.2 g/dl (6.4-8.2)
[2017-12-18 08:49] LABS: LDH 1135 U/L (84-246)
[2017-12-18 09:02] LABS: HEMATOCRIT 22.1 % (32.4-45.2); HEMOGLOBIN 7.7 GM/dL (10.7-15.3); MCH 31.9 pg (25.7-33.7); MEAN CELL VOLUME 91.3 fl (80-96); MEAN PLT VOLUME 8.8 fl (7.5-11.1); PLATELET COUNT 42 K/MM3 (134-434); RBC 2.42 M/mm3 (3.60-5.2); RDW 19.6 % (11.6-15.6); WHITE BLOOD COUNT 13.4 K/mm3 (4.0-10.0)
[2017-12-18] MEDS: predniSONE 20 MG TABLET (UD) PO SCH ×2 (10:26→23:06)
[2017-12-18] MEDS: metoPROLOL SUCCINATE 25 MG TAB.SR.24H (FP) PO SCH (10:26)
[2017-12-18] MEDS: FOLIC ACID 1 MG TABLET (FP) PO SCH (10:28)
[2017-12-18] MEDS: PANTOPRAZOLE 40 MG TABLET (FP) PO SCH ×2 (10:28→23:06)
[2017-12-18 11:32] LABS: PLATELET ESTIMATE DECREASED
--- NOTE | 2017-12-18 11:59 | PN ---
Progress Note (short form) - Note Progress Note: Patient seen and examined. received Ambien last night ROS: +fatigue, and drowsy this am , though she says "I slept well at least". Did not tolerate a MRI due to claustrophobia. no further urinary retention, confirmed with pt/RN. she denies back pain O/E General: NAD HEENT: NCAT Cor: RRR Lungs: CTA b/l ABd: RUQ tenderness Extremities: 2+ pitting edema Neuro: AAOX3 Last Vital Signs Temp Pulse Resp BP Pulse Ox 97.9 F 69 18 133/75 99 12/18/17 06:00 12/18/17 06:00 12/18/17 06:00 12/18/17 06:00 12/18/17 09:00 CBC, BMP 12/18/17 06:35 12/18/17 06:35 Current Medications Generic Name Dose Route Start Last Admin Trade Name Freq PRN Reason Stop Dose Admin Acetaminophen 650 mg 12/14/17 11:48 12/16/17 12:26 Tylenol - PO 650 mg Q4H PRN Administration FEVER Folic Acid 1 mg 12/15/17 15:45 12/18/17 10:28 Folic Acid - PO 1 mg DAILY ALVARADO Administration Sodium Chloride 1,000 mls @ 50 mls/hr 12/15/17 18:30 12/17/17 18:30 Normal Saline - IV Not Given ASDIR ALVARADO Lactulose 20 gm 12/16/17 17:51 Cephulac (Oral Use) PO TID PRN CONSTIPATION Levothyroxine Sodium 50 mcg 12/15/17 07:00 12/18/17 06:42 Synthroid - PO 50 mcg DAILY@0700 ALVARADO Administration Lorazepam 2 mg 12/17/17 18:45 Ativan Injection - IVPB 12/17/17 18:46 ONCE ONE Metoprolol Succinate 25 mg 12/16/17 10:00 12/18/17 10:26 Toprol Xl - PO 25 mg DAILY ALVARADO Administration Pantoprazole Sodium 40 mg 12/15/17 22:00 12/18/17 10:28 Protonix - PO 40 mg BID ALVARADO Administration Prednisone 50 mg 12/16/17 10:15 12/18/17 10:26 Deltasone - PO 50 mg BID ALVARADO Administration Sodium Chloride 1 spray 12/14/17 14:13 [place] Nasal [place] - NS Q4H PRN NASAL CONGESTION MAHA and thrombocytopenia, likely from her underlying worsening metastatic breast cancer, ongoing Cannot rule out Bone marrow involvement of breast cancer NEW liver mets-- reason for Jaundice/abn LFTs/INR may be component to cause hemolysis diastolic Heart failure worsening LE edema c/w prednisone at present doses give lasix 20mg IVP now , worsening LE edema ( also on steroids) MR spine pending, in the setting of extensive bony disease. to consider xanax, pt in agreement repeat labs in the am. to consider for further systemic therapy as documented prior transfusion need to be assessed on a daily basis Drowsy this am ,likely due to post evening dose of Ambien, now on reassessment at afternoon, is a more awake and back to her baseline.
[2017-12-18] MEDS ORDERED: FUROSEMIDE 100 MG/10 ML INJECTABLE VIAL IVPB ONE (13:14)
[2017-12-18] MEDS ORDERED: FUROSEMIDE 40 MG/4 ML INJECTABLE VIAL IVPUSH ONE (13:45)
[2017-12-18] MEDS ORDERED: LACTULOSE 20 GM/30 ML UDC (FOR ORAL USE ONLY) PO ONE (17:54)
[2017-12-18] MEDS: SODIUM CHLORIDE 1,000 ML IV SCH (19:53)
--- NOTE | 2017-12-19 00:02 | HOSP ---
Subjective - Review of Symptoms Events since last encounter: 67 yo f with metastatic breast CA General: Yes: Malaise HEENT: No: Head Aches, Visual Changes Pulmonary: Yes: Other (shortness of breath). No: Dyspnea, Cough Cardiovascular: Yes: Edema. No: Chest Pain, Palpitations, Paroxysmal Noc. Dyspnea Gastrointestinal: No: Nausea, Vomiting, Abdominal Pain Musculoskeletal: Yes: No Symptoms Neurological: No: Weakness, Numbness, Incoordination Physical Examination Vital Signs: Vital Signs Temperature 97.9 F 12/18/17 22:00 Pulse Rate 74 12/18/17 22:00 Respiratory Rate 18 12/18/17 22:00 Blood Pressure 144/60 12/18/17 22:00 O2 Sat by Pulse Oximetry (%) 98 12/18/17 21:00 Constitutional: Yes: Other (lethargic) Cardiovascular: Yes: Regular Rate and Rhythm, Murmur, S1, S2 Respiratory: Yes: Regular, CTA Bilaterally, On Nasal O2 (2L). No: Accessory Muscle Use, Wheezes Gastrointestinal: Yes: Normal Bowel Sounds Edema: Yes Edema: LLE: 2+, RLE: 2+ Peripheral Pulses WNL: Yes Neurological: Yes: Alert, Oriented Labs: CBC, BMP 12/18/17 06:35 12/18/17 06:35 Hospitalist Encounter Assessment: This is a 67 year old female with metastatic breast cancer, currently complaining of shortness of breath at rest. Denies SUBRAMANIAN, blurry vision, chest pain , n, v, diaphoresis. Does have chronic anasarca.Has been on 2L NC. As per nurse has been lethargic all day, was given Ambien 5mg po last night. Just had head CT done ; report pending. A/P: Shortness of breath may be secondary to atelectasis, fluid overload, possible PE , r/o acs. All vitals wnl. NOt hypoxic. ECG nsr. -ecg; nsr; no st/t wave changes -CXR; eval for overload/atelectasis, if clear would consider CTA -incentive spirometry -trend troponin; r/o acs -f/u head CT Visit type - Emergency Visit Emergency Visit: No - New Patient This patient is new to me today: Yes Date on this admission: 12/19/17 - Critical Care Critical Care patient: No
[2017-12-19] MEDS ORDERED: FUROSEMIDE 40 MG/4 ML INJECTABLE VIAL IVPUSH ONE (01:20)
[2017-12-19] MEDS: LEVOTHYROXINE NA 50 MCG TABLET (FP) PO SCH (06:15)
[2017-12-19 08:13] LABS: ALBUMIN 2.1 g/dl (3.4-5.0); ANION GAP 10 (8-16); BILIRUBIN,TOTAL 6.1 mg/dL (0.2-1.0); BLOOD UREA NITROGEN 36 mg/dL (7-18); CALCIUM 7.2 mg/dL (8.5-10.1); CHLORIDE 112 mmol/L (98-107); CO2 21 mmol/L (21-32); GLUCOSE,RANDOM 143 mg/dL (74-106); SGPT/ALT 34 U/L (12-78); SODIUM 143 mmol/L (136-145)
[2017-12-19 08:27] LABS: ALK PHOS 124 U/L (45-117)
[2017-12-19 08:28] LABS: HEMATOCRIT 19.6 % (32.4-45.2); MCH 32.1 pg (25.7-33.7); MCHC 35.1 g/dl (32.0-36.0); MEAN CELL VOLUME 91.4 fl (80-96); MEAN PLT VOLUME 9.2 fl (7.5-11.1); RBC 2.14 M/mm3 (3.60-5.2); RDW 19.8 % (11.6-15.6); WHITE BLOOD COUNT 14.8 K/mm3 (4.0-10.0)
[2017-12-19 08:46] LABS: ADD RBC MORPHOLOGY YES
[2017-12-19 08:59] LABS: HEMOGLOBIN 6.9 GM/dL (10.7-15.3)
[2017-12-19 09:13] LABS: POTASSIUM 3.9 mmol/L (3.5-5.1)
[2017-12-19 09:14] LABS: LDH 1578 U/L (84-246); SGOT/AST 138 U/L (15-37)
--- NOTE | 2017-12-19 10:22 | PN ---
Progress Note (short form) - Note Progress Note: ID Alert NAD wearing O2 Selected Entries 12/19/17 06:27 Temperature 98.1 F Pulse Rate 76 Respiratory 18 Rate Blood Pressure 133/68 Lung Clear cor S1 S2 Abd Soft Ext Edema bilaterally Microbiology 12/17/17 13:55 Stool Clostridium difficile Antigen ([facility]CKAY) - Final 12/17/17 13:55 Stool Clostridium difficile Toxin Assay - Final 12/16/17 03:20 Urine - Urine Baeza Urine Culture - Final NO GROWTH OBTAINED 12/15/17 20:00 Blood - Peripheral Venous Blood Culture - Preliminary NO GROWTH OBTAINED AFTER 72 HOURS, INCUBATION TO CONTINUE FOR 2 DAYS. 12/15/17 19:45 Blood - Peripheral Venous Blood Culture - Preliminary NO GROWTH OBTAINED AFTER 72 HOURS, INCUBATION TO CONTINUE FOR 2 DAYS. Laboratory Tests 12/18/17 12/19/17 12/19/17 06:35 06:52 06:52 WBC 14.8 H Hgb 6.9 L* D Hct 19.6 L Plt Count Pending INR 1.48 H Creat Clearance w eGFR 55.64 Lactic Acid 12/19/17 06:52 WBC Hgb Hct Plt Count INR Creat Clearance w eGFR Lactic Acid 3.3 H* Chest xray no infiltrate seen Laboratory Tests 12/16/17 03:20 Ur Leukocyte Esterase Negative Urine WBC (Auto) 1 Urine RBC (Auto) 1 Assessment Metastatic cancer Incidental lactic acid unrelated to infection considered cultures already checked an no growth Plan Repeat cultures ordered but I would not treat at th is time Damian GASCA Problem List - Problems (1) Metastatic cancer Code(s): C79.9 - SECONDARY MALIGNANT NEOPLASM OF UNSPECIFIED SITE (2) Elevated lactic acid level Code(s): R79.89 - OTHER SPECIFIED ABNORMAL FINDINGS OF BLOOD CHEMISTRY
[2017-12-19] MEDS: predniSONE 20 MG TABLET (UD) PO SCH ×2 (10:28→21:51)
[2017-12-19] MEDS: metoPROLOL SUCCINATE 25 MG TAB.SR.24H (FP) PO SCH (10:28)
[2017-12-19] MEDS: FOLIC ACID 1 MG TABLET (FP) PO SCH (10:28)
[2017-12-19] MEDS: PANTOPRAZOLE 40 MG TABLET (FP) PO SCH ×2 (10:28→21:51)
--- NOTE | 2017-12-19 11:18 | CONS ---
DATE OF CONSULTATION: HISTORY: This is a 67-year-old female with known metastatic breast cancer who I am asked to see for an incidental finding of an elevated lactic acid. The patient has known metastasis to cervical nodes, soft tissue in the back and bones with invasive lobular carcinoma. She has had chemotherapy in the past with multiple chemotherapeutic agents, and these, however, are on hold due to her severe cytopenia requiring blood transfusions. She has not been febrile during her hospitalization. She did require insertion of a Baeza catheter for urinary retention. She has no chills, no fever, no chest pain, cough, sputum production, or urinary complaints other than related to an indwelling Baeza catheter. CURRENT MEDICATIONS: Include prednisone 50 mg b.i.d., Toprol, Protonix, Synthroid. ALLERGIES: CODEINE, HYDROCODONE. SOCIAL HISTORY: Nonsmoker. No history of substance abuse. FAMILY HISTORY: Noncontributory. REVIEW OF SYSTEMS: Systems reviewed and noncontributory. PHYSICAL EXAMINATION: Vital Signs: Reveals an alert woman sitting in a chair in no acute distress. Her temperature is 98.1, pulse 76, blood pressure 133/68, respirations 18, O2 saturation 98% on 2 L nasal cannula. Neck: Supple. Lungs: Bilateral breath sounds. Heart: S1, S2. Regular rhythm without audible murmur. Abdomen: Soft. Normoactive bowel sounds. Not distended. No localized tenderness. Extremities: Reveal 2+ peripheral edema. LABORATORY DATA: White count 14.8, hemoglobin 6.9, hematocrit 19.6, platelets 42,000 with 82% polys, 11 lymphocytes. BUN 36, creatinine 1, lactic acid 3.3 today and 2.4 on December 15. AST 138, ALT 34, alkaline phosphatase 124, ammonia level 112. Two sets of blood cultures and a urine culture December 15 and December 16 already checked and no growth. A Clostridium difficile toxin was also sent and apparently negative. Chest x-ray was reviewed and shows no evidence of acute infiltrate seen. An abdominal CT scan shows small bilateral pleural effusions, moderate ascites, and multiple hepatic mass consistent with metastasis and in addition sclerotic bone metastasis. ASSESSMENT: A 67-year-old female with incidental finding of elevated lactic acid level. Does not appear to be related to infection. She is afebrile and has had negative blood and urine cultures done on December 15 and December 16. At this point, she appears reasonably comfortably albeit it on nasal cannula, and with an indwelling Baeza catheter, I would be inclined to observe only. No antibiotics to be given. Apparently, repeat cultures have been sent today. Once again, no antibiotics. BRIDGER BRYANT M.D. [id number]
[2017-12-19 12:02] LABS: RETICULOCYTES 4.79 % (0.5-1.5)
[2017-12-19 12:07] LABS: PLATELET COUNT 37 K/MM3 (134-434)
[2017-12-19 12:08] LABS: PLATELET ESTIMATE DECREASED
[2017-12-19 12:18] LABS: ANISOCYTOSIS 1+; MACROCYTOSIS 1+
--- NOTE | 2017-12-19 12:19 | EKG ---
Test Reason : Blood Pressure : / mmHG Vent. Rate : 069 BPM Atrial Rate : 069 BPM P-R Int : 150 ms QRS Dur : 086 ms QT Int : 446 ms P-R-T Axes : 049 023 034 degrees QTc Int : 477 ms NORMAL SINUS RHYTHM CANNOT RULE OUT ANTERIOR INFARCT (CITED ON OR BEFORE 16-DEC-2017) ABNORMAL ECG WHEN COMPARED WITH ECG OF 16-DEC-2017 14:33, NO SIGNIFICANT CHANGE WAS FOUND Confirmed by DERICK GARCIA MD ([id number]) on 12/19/2017 12:19:35 PM Referred By: Confirmed By:DERICK GARCIA MD
--- NOTE | 2017-12-19 12:57 | EKG ---
Test Reason : Blood Pressure : / mmHG Vent. Rate : 077 BPM Atrial Rate : 077 BPM P-R Int : 148 ms QRS Dur : 086 ms QT Int : 432 ms P-R-T Axes : 047 009 035 degrees QTc Int : 488 ms NORMAL SINUS RHYTHM CANNOT RULE OUT ANTERIOR INFARCT , AGE UNDETERMINED ABNORMAL ECG WHEN COMPARED WITH ECG OF 15-DEC-2017 19:44, PREMATURE ATRIAL COMPLEXES ARE NO LONGER PRESENT Confirmed by RADHA GASCA, DERICK ([id number]) on 12/19/2017 12:57:35 PM Referred By: Confirmed By:DERICK GARCIA MD
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
--- NOTE | 2017-12-19 22:35 | PN ---
Progress Note (short form) - Note Progress Note: Patient seen and examined Vitals/labs/meds reviewed in detail 67 y/o with metastatic breast cancer, now with progressive bone mets, cytopenias , liver mets, encephalopathy? Has mild hematuria Transfuse PRBCs and monodonor platelets f/u ID/GI recs Overall poor prognosis
[2017-12-20] MEDS: LEVOTHYROXINE NA 50 MCG TABLET (FP) PO SCH (06:03)
[2017-12-20 07:35] LABS: HEMATOCRIT 20.3 % (32.4-45.2); HEMOGLOBIN 7.2 GM/dL (10.7-15.3); MCH 30.9 pg (25.7-33.7); MCHC 35.2 g/dl (32.0-36.0); MEAN CELL VOLUME 87.8 fl (80-96); MEAN PLT VOLUME 9.3 fl (7.5-11.1); RBC 2.32 M/mm3 (3.60-5.2)
[2017-12-20 07:46] LABS: PLATELET COUNT 24 K/MM3 (134-434)
[2017-12-20 07:50] LABS: ALBUMIN 2.1 g/dl (3.4-5.0); ANION GAP 7 (8-16); BILIRUBIN,TOTAL 7.9 mg/dL (0.2-1.0); BLOOD UREA NITROGEN 35 mg/dL (7-18); CALCIUM 7.1 mg/dL (8.5-10.1); CHLORIDE 111 mmol/L (98-107); CO2 24 mmol/L (21-32); CREATININE 0.9 mg/dL (0.55-1.02); GLUCOSE,RANDOM 152 mg/dL (74-106); SGPT/ALT 43 U/L (12-78); SODIUM 142 mmol/L (136-145)
[2017-12-20 07:52] LABS: ALK PHOS 129 U/L (45-117)
[2017-12-20 08:04] LABS: POTASSIUM 3.9 mmol/L (3.5-5.1); SGOT/AST 190 U/L (15-37)
[2017-12-20] MEDS: predniSONE 20 MG TABLET (UD) PO SCH ×2 (09:32→21:31)
[2017-12-20] MEDS: FOLIC ACID 1 MG TABLET (FP) PO SCH (09:32)
[2017-12-20] MEDS: LACTULOSE 20 GM/30 ML UDC (FOR ORAL USE ONLY) PO PRN (09:32)
[2017-12-20] MEDS: PANTOPRAZOLE 40 MG TABLET (FP) PO SCH ×2 (09:32→21:31)
[2017-12-20] MEDS: metoPROLOL SUCCINATE 25 MG TAB.SR.24H (FP) PO SCH (09:32)
--- NOTE | 2017-12-20 09:48 | PN ---
Progress Note, Physician Chief Complaint: breast cancer, metastatic, r/o spinal metastases History of Present Illness: 67 year old woman with metastatic breast ca, was having difficulty urinating, though now resolved after catheterization and found not to be in retention. She denies having back pain, numbness or weakness of the arms or legs to me, but has complained of this at other times to other providers. Her metastatic disease has reportedly progressed with bony mets elsewhere and concern has been raised as to mets to the spine. - Current Medication List Current Medications: Active Medications Acetaminophen (Tylenol -) 650 mg PO Q4H PRN PRN Reason: FEVER Last Admin: 12/16/17 12:26 Dose: 650 mg Folic Acid (Folic Acid -) 1 mg PO DAILY [facility] Last Admin: 12/20/17 09:32 Dose: 1 mg Lactulose (Cephulac (Oral Use)) 20 gm PO TID PRN PRN Reason: CONSTIPATION Last Admin: 12/20/17 09:32 Dose: 20 gm Levothyroxine Sodium (Synthroid -) 50 mcg PO DAILY@0700 [facility] Last Admin: 12/20/17 06:03 Dose: 50 mcg Lorazepam (Ativan Injection -) 2 mg IVPB ONCE ONE Stop: 18 18:46 Metoprolol Succinate (Toprol Xl -) 25 mg PO DAILY [facility] Last Admin: 12/20/17 09:32 Dose: 25 mg Pantoprazole Sodium (Protonix -) 40 mg PO BID [facility] Last Admin: 12/20/17 09:32 Dose: 40 mg Prednisone (Deltasone -) 50 mg PO BID [facility] Last Admin: 12/20/17 09:32 Dose: 50 mg Sodium Chloride ([place]al [place] -) 1 spray NS Q4H PRN PRN Reason: NASAL CONGESTION - Objective Vital Signs: Vital Signs Temperature 97.7 F 12/20/17 06:39 Pulse Rate 69 12/20/17 06:39 Respiratory Rate 20 12/20/17 06:39 Blood Pressure 129/64 12/20/17 06:39 O2 Sat by Pulse Oximetry (%) 97 12/19/17 21:00 Neurological: Yes: Other (drowsy this am, less cooperative with formal testing) Labs: CBC, BMP 12/20/17 07:00 12/20/17 07:00 INR, PTT INR 1.48 (0.82-1.09) H 12/18/17 06:35 Problem List - Problems (1) Diverticulosis Code(s): K57.90 - DVRTCLOS OF INTEST, PART UNSP, W/O PERF OR ABSCESS W/O BLEED (2) Family history of malignant neoplasm of colon Code(s): Z80.0 - FAMILY HISTORY OF MALIGNANT NEOPLASM OF DIGESTIVE ORGANS (3) Metastatic cancer Code(s): C79.9 - SECONDARY MALIGNANT NEOPLASM OF UNSPECIFIED SITE (4) Urinary retention Code(s): R33.9 - RETENTION OF URINE, UNSPECIFIED Assessment/Plan R/o Spinal metastases, await MRI ls spine. Will f/u with you.
[2017-12-20] MEDS ORDERED: PHYTONADIONE 10 MG/1 ML AMP IVPB ONE ×2 (12:00→16:15)
[2017-12-20 12:04] LABS: ANISOCYTOSIS 1+; CORRECTED WBC 14.91 K/mm3; MACROCYTOSIS 1+
[2017-12-20 12:05] LABS: ACANTHOCYTES 1+; OVALOCYTE 1+
[2017-12-20 12:06] LABS: PLATELET ESTIMATE DECREASED
--- NOTE | 2017-12-20 14:57 | PN ---
Progress Note, Physician History of Present Illness: Awake and responsive Offers no complaints Receiving transfusion PRBCs No fever/ chills but WBC elevated Cultures prelim (-) - Current Medication List Current Medications: Active Medications Acetaminophen (Tylenol -) 650 mg PO Q4H PRN PRN Reason: FEVER Last Admin: 12/16/17 12:26 Dose: 650 mg Folic Acid (Folic Acid -) 1 mg PO DAILY [facility] [place] Last Admin: 12/20/17 09:32 Dose: 1 mg Lactulose (Cephulac (Oral Use)) 20 gm PO TID PRN PRN Reason: CONSTIPATION Last Admin: 12/20/17 09:32 Dose: 20 gm Levothyroxine Sodium (Synthroid -) 50 mcg PO DAILY@0700 [facility] [place] Last Admin: 12/20/17 06:03 Dose: 50 mcg Lorazepam (Ativan Injection -) 2 mg IVPB ONCE ONE Stop: 12/17/17 18:46 Metoprolol Succinate (Toprol Xl -) 25 mg PO DAILY [facility] [place] Last Admin: 12/20/17 09:32 Dose: 25 mg Pantoprazole Sodium (Protonix -) 40 mg PO BID [facility] [place] Last Admin: 12/20/17 09:32 Dose: 40 mg Prednisone (Deltasone -) 50 mg PO DAILY [facility] [place] Sodium Chloride ([place] Nasal [place] -) 1 spray NS Q4H PRN PRN Reason: NASAL CONGESTION - Objective Vital Signs: Vital Signs Temperature 97.5 F L 12/20/17 11:50 Pulse Rate 78 12/20/17 11:50 Respiratory Rate 20 12/20/17 11:50 Blood Pressure 124/71 12/20/17 11:50 O2 Sat by Pulse Oximetry (%) 97 12/20/17 09:00 Constitutional: Yes: No Distress Eyes: Yes: Conjunctiva Clear Cardiovascular: Yes: Regular Rate and Rhythm, S1, S2 Respiratory: Yes: Diminished Gastrointestinal: Yes: Normal Bowel Sounds, Soft, Abdomen, Obese. No: Tenderness Edema: Yes Edema: LLE: 2+, RLE: 2+ Labs: CBC, BMP 12/20/17 07:00 12/20/17 07:00 INR, PTT INR 1.48 (0.82-1.09) H 12/18/17 06:35 Assessment/Plan Lactic acidosis Leukocytosis ? leukemoid reaction Metastatic breast ca Await cultures Observe off antibiotics
--- NOTE | 2017-12-20 17:39 | CONSULT ---
Consultation: REQUESTING PROVIDER: CONSULT REQUEST: We have been asked to medically evaluate this patient for waxing and waning encephalopathy 2/2 liver mets. 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 ) metastatic to cervical lymph nodes/soft tissue, bones and liver, admitted for anemia requiring blood transfusion. Pt is s/p 5U PRBCs (2U's on 12/14/17, 1U on 12/15/17, 1U on 12/19/17, and 1U earlier today) and 2U platelets (1U on 12/19/17, and 1U hanging now) during this hospitalization. Pt is having waxing and waning encephalopathy 2/2 livers mets, which is currently resolved s/p lactulose. Pt has been experiencing intermittent sob, which is currently resolved. Hematuria persists. ROS is otherwise negative. REVIEW OF SYSTEMS: CONSTITUTIONAL: Absent: fever, chills, diaphoresis HEENT: Absent: rhinorrhea, nasal congestion, throat pain, ear pain, eye pain, visual changes CARDIOVASCULAR: Absent: chest pain, syncope, palpitations, irregular heart rate RESPIRATORY: Absent: cough, shortness of breath, wheezing, stridor GASTROINTESTINAL: Absent: abdominal pain, abdominal distension, nausea, vomiting, diarrhea, constipation GENITOURINARY: hematuria Absent: dysuria MUSCULOSKELETAL: Absent: myalgia, arthralgia, joint swelling SKIN: Absent: rash, itching, pallor HEMATOLOGIC/IMMUNOLOGIC: Absent: easy bleeding, easy bruising, lymphadenopathy, frequent infections NEUROLOGIC: Absent: headache, focal weakness or paresthesias, dizziness PSYCHIATRIC: Absent: anxiety, depression, suicidal or homicidal ideation, hallucinations. PHYSICAL EXAMINATION Vital Signs - 24 hr 12/19/17 12/19/17 12/19/17 20:11 21:00 21:44 Temperature 97.9 F 97.6 F Pulse Rate 72 68 Respiratory 20 20 20 Rate Blood Pressure 153/76 154/75 O2 Sat by Pulse 97 Oximetry (%) 12/20/17 12/20/17 12/20/17 06:39 09:00 11:20 Temperature 97.7 F 97.4 F L Pulse Rate 69 64 Respiratory 20 20 Rate Blood Pressure 129/64 135/70 O2 Sat by Pulse 97 Oximetry (%) 12/20/17 12/20/17 11:50 15:53 Temperature 97.5 F L 97.8 F Pulse Rate 78 70 Respiratory 20 20 Rate Blood Pressure 124/71 139/70 O2 Sat by Pulse Oximetry (%) GENERAL: Awake, alert, and fully oriented, in no acute distress. LUNGS: Breath sounds equal, clear to auscultation bilaterally. No wheezes, and no crackles. No accessory muscle use. HEART: Regular rate and rhythm, holosystolic murmur appreciated. ABDOMEN: Soft, nontender, not distended, normoactive bowel sounds, no guarding. UPPER EXTREMITIES: Warm, well-perfused. No cyanosis. No clubbing. +edema LOWER EXTREMITIES: Warm, well-perfused. No calf tenderness. +edema NEUROLOGICAL: Cranial nerves II-XII grossly intact. No facial droop. Normal speech. PSYCHIATRIC: Cooperative. Good eye contact. Appropriate mood and affect. SKIN: Warm, dry, normal turgor, no rashes or lesions noted. Laboratory Results - last 24 hr 12/19/17 12/19/17 12/20/17 06:52 13:33 07:00 WBC 17.0 H Corrected WBC (auto) 14.91 RBC 2.32 L Hgb 7.2 L Hct 20.3 L MCV 87.8 MCH 30.9 MCHC 35.2 RDW 20.0 H Plt Count 24 L* D MPV 9.3 Total Counted 100 Neutrophils % No Result Required. Neutrophils % (Manual) 78.0 Band Neutrophils % 3.0 Lymphocytes % No Result Required. Lymphocytes % (Manual) 12.0 Monocytes % (Manual) 3 L Myelocytes % (Man) 2 D Nucleated RBC % 14 H* Metamyelocytes 1 D Platelet Estimate Decreased Anisocytosis 1+ Microcytosis 1+ Macrocytosis 1+ Ovalocytes 1+ Acanthocytes (Spur) 1+ Schistocytes 1+ Haptoglobin < 10 L Sodium Potassium Chloride Carbon Dioxide Anion Gap BUN Creatinine Creat Clearance w eGFR Random Glucose Calcium Total Bilirubin AST ALT Alkaline Phosphatase Total Protein Albumin Blood Type O POSITIVE Antibody Screen Negative Crossmatch See Detail 12/20/17 07:00 WBC Corrected WBC (auto) RBC Hgb Hct MCV MCH MCHC RDW Plt Count MPV Total Counted Neutrophils % Neutrophils % (Manual) Band Neutrophils % Lymphocytes % Lymphocytes % (Manual) Monocytes % (Manual) Myelocytes % (Man) Nucleated RBC % Metamyelocytes Platelet Estimate Anisocytosis Microcytosis Macrocytosis Ovalocytes Acanthocytes (Spur) Schistocytes Haptoglobin Sodium 142 Potassium 3.9 Chloride 111 H Carbon Dioxide 24 Anion Gap 7 L BUN 35 H Creatinine 0.9 Creat Clearance w eGFR > 60 Random Glucose 152 H Calcium 7.1 L Total Bilirubin 7.9 H D AST 190 H ALT 43 Alkaline Phosphatase 129 H Total Protein 5.0 L Albumin 2.1 L Blood Type Antibody Screen Crossmatch Active Medications Generic Name Dose Route Start Last Admin Trade Name Freq PRN Reason Stop Dose Admin Acetaminophen 650 mg 12/14/17 11:48 12/16/17 12:26 Tylenol - PO 650 mg Q4H PRN Administration FEVER Folic Acid 1 mg 12/15/17 15:45 12/20/17 09:32 Folic Acid - PO 1 mg DAILY [facility] Administration Lactulose 20 gm 12/16/17 17:51 12/20/17 09:32 Cephulac (Oral Use) PO 20 gm TID PRN Administration CONSTIPATION Levothyroxine Sodium 50 mcg 12/15/17 07:00 12/20/17 06:03 Synthroid - PO 50 mcg DAILY@0700 [facility] Administration Lorazepam 2 mg 12/17/17 18:45 Ativan Injection - IVPB 12/17/17 18:46 ONCE ONE Metoprolol Succinate 25 mg 12/16/17 10:00 12/20/17 09:32 Toprol Xl - PO 25 mg DAILY [facility] Administration Pantoprazole Sodium 40 mg 12/15/17 22:00 12/20/17 09:32 Protonix - PO 40 mg BID [facility] Administration Prednisone 50 mg 12/21/17 10:00 Deltasone - PO DAILY [facility] Sodium Chloride 1 spray 12/14/17 14:13 [place] Nasal [place] - NS Q4H PRN NASAL CONGESTION IMAGIN12/18/[address] -> No gross acute intracranial pathology. 12/19/17 CXR -> No acute lung pathology. Diffuse mottling of bony skeleton suggestive of metastatic disease noted. 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 ) metastatic to cervical lymph nodes/soft tissue, bones and liver, admitted to hospital for anemia requiring blood transfusion, admitted to ICU for waxing and waning encephalopathy 2/2 liver mets. ONCOLOGY # encephalopathy / liver mets - continue Lactulose prn - Neurology (Dr. Avila) recs appreciated - AST and alk phos trending up, continue to monitor # bony mets - f/u Lumbar CT # breast ca - Heme/Onc (Dr. Escobar) recs appreciated # leukocytosis - ? leukemoid reaction - ID (Dr. Sebastian) recs appreciated: continue to monitor off antibiotics - 12/19/17 blood cultures (-) x 24 hrs - 12/19/17 urine culture (-) - continue to trend lactic acidosis GI # anemia of chronic disease - s/p 5U PRBCs - transfuse prn - LD trending up, consistent with hemolysis, continue to monitor - GI (Dr. Beavers) recs appreciated: FOBT (+) from 12/15/17, may be 2/2 intermittent bleeding from NSAID induced ulcer/gastritis/duodenitis/silent GERD/ AVM/GI neoplasm. EGD/Colonoscopy deferred as CT revealed liver mets. # hematuria - monitor CBC - f/u renal US # thrombocytopenia - s/p 2U platelets - continue to monitor CV # acute diastolic CHF exacerbation / CAD / HTN / HLD - Cardiology (Dr. Kruger) recs appreciated - continue Metoprolol - pt intolerant of 2 statins (nausea, elevated LFTs), continue off statins ENDO # nathalie hypothyroidism - Endocrinology (Dr. Longo) recs appreciated: continue Synthroid # FEN - Fluids: po - Electrolytes: wnl - Nutrition: regular diet # Prophylaxis - DVT chemoprophylaxis held 2/2 hematuria - GI ppx with Protonix Dispo: We will continue to follow the patient. Thank you for this consultative opportunity. <Malou Raman - Last Filed: 12/20/17 17:41> Consultation: REQUESTING PROVIDER: CONSULT REQUEST: We have been asked to medically evaluate this patient for ( specify). HISTORY OF PRESENT ILLNESS: REVIEW OF SYSTEMS: CONSTITUTIONAL: Absent: fever, chills, diaphoresis, generalized weakness, malaise, loss of appetite, weight change HEENT: Absent: rhinorrhea, nasal congestion, throat pain, throat swelling, difficulty swallowing, mouth swelling, ear pain, eye pain, visual changes CARDIOVASCULAR: Absent: chest pain, syncope, palpitations, irregular heart rate, lightheadedness , peripheral edema RESPIRATORY: Absent: cough, shortness of breath, dyspnea with exertion, orthopnea, wheezing, stridor, hemoptysis GASTROINTESTINAL: Absent: abdominal pain, abdominal distension, nausea, vomiting, diarrhea, constipation, melena, hematochezia GENITOURINARY: Absent: dysuria, frequency, urgency, hesitancy, hematuria, flank pain, genital pain MUSCULOSKELETAL: Absent: myalgia, arthralgia, joint swelling, back pain, neck pain SKIN: Absent: rash, itching, pallor HEMATOLOGIC/IMMUNOLOGIC: Absent: easy bleeding, easy bruising, lymphadenopathy, frequent infections ENDOCRINE: Absent: unexplained weight gain, unexplained weight loss, heat intolerance, cold intolerance NEUROLOGIC: Absent: headache, focal weakness or paresthesias, dizziness, unsteady gait, seizure, mental status changes, bladder or bowel incontinence PSYCHIATRIC: Absent: anxiety, depression, suicidal or homicidal ideation, hallucinations. PHYSICAL EXAMINATION Vital Signs - 24 hr 12/20/17 12/20/17 12/20/17 15:53 20:00 21:00 Temperature 97.8 F 97.5 F L Pulse Rate 70 67 Respiratory 20 21 20 Rate Blood Pressure 139/70 153/70 O2 Sat by Pulse 97 Oximetry (%) 12/20/17 12/21/17 12/21/17 22:00 00:00 02:00 Temperature 97.4 F L Pulse Rate 69 71 75 Respiratory 19 20 16 Rate Blood Pressure 136/57 163/84 143/74 O2 Sat by Pulse Oximetry (%) 12/21/17 12/21/17 12/21/17 04:00 06:00 08:00 Temperature Pulse Rate 76 65 67 Respiratory 17 14 18 Rate Blood Pressure 133/71 122/76 146/72 O2 Sat by Pulse Oximetry (%) 12/21/17 12/21/17 12/21/17 09:00 09:33 10:00 Temperature 97.2 F L Pulse Rate 71 65 Respiratory 14 14 14 Rate Blood Pressure 153/72 148/76 O2 Sat by Pulse 97 Oximetry (%) GENERAL: Awake, alert, and fully oriented, in no acute distress. HEAD: Normal with no signs of trauma. EYES: Pupils equal, round and reactive to light, extraocular movements intact, sclera anicteric, conjunctiva clear. No lid lag. EARS, NOSE, THROAT: Ears normal, nares patent, oropharynx clear without exudates. Moist mucous membranes. NECK: Normal range of motion, supple without lymphadenopathy, JVD, or masses. LUNGS: Breath sounds equal, clear to auscultation bilaterally. No wheezes, and no crackles. No accessory muscle use. HEART: Regular rate and rhythm, normal S1 and S2 without murmur, rub or gallop. ABDOMEN: Soft, nontender, not distended, normoactive bowel sounds, no guarding, no rebound, no masses. No hepatomegaly or splenomegaly. MUSCULOSKELETAL: Normal range of motion at all joints. No bony deformities or tenderness. No CVA tenderness. UPPER EXTREMITIES: 2+ pulses, warm, well-perfused. No cyanosis. No clubbing. Cap refill <2 seconds. No peripheral edema. LOWER EXTREMITIES: 2+ pulses, warm, well-perfused. No calf tenderness. No peripheral edema. NEUROLOGICAL: Cranial nerves II-XII intact. Normal speech. Normal gait. PSYCHIATRIC: Cooperative. Good eye contact. Appropriate mood and affect. SKIN: Warm, dry, normal turgor, no rashes or lesions noted. Laboratory Results - last 24 hr 12/21/17 12/21/17 12/21/17 06:00 06:05 06:05 WBC 16.3 H RBC 2.29 L Hgb 7.2 L Hct 19.6 L MCV 85.5 MCH 31.3 MCHC 36.6 H RDW 18.7 H Plt Count 31 L* D MPV 7.6 D PT with INR 19.30 H INR 1.71 H PTT (Actin FS) 24.9 L Sodium Potassium Chloride Carbon Dioxide Anion Gap BUN Creatinine Creat Clearance w eGFR Random Glucose Lactic Acid 3.6 H* Calcium Phosphorus Magnesium Total Bilirubin Direct Bilirubin AST ALT Alkaline Phosphatase LD Total Total Protein Albumin 12/21/17 12/21/17 06:05 06:05 WBC RBC Hgb Hct MCV MCH MCHC RDW Plt Count MPV PT with INR INR PTT (Actin FS) Sodium 143 Potassium 3.9 Chloride 110 H Carbon Dioxide 22 Anion Gap 11 BUN 39 H Creatinine 0.9 Creat Clearance w eGFR > 60 Random Glucose 173 H Lactic Acid Calcium 7.4 L Phosphorus 2.7 Magnesium 2.5 H Total Bilirubin 9.5 H D Direct Bilirubin Cancelled AST 228 H ALT 45 Alkaline Phosphatase 133 H LD Total 2774 H Total Protein 4.9 L Albumin 2.2 L Active Medications Generic Name Dose Route Start Last Admin Trade Name Freq PRN Reason Stop Dose Admin Acetaminophen 650 mg 12/14/17 11:48 12/21/17 06:12 Tylenol - PO 650 mg Q4H PRN Administration FEVER Folic Acid 1 mg 12/15/17 15:45 12/21/17 09:28 Folic Acid - PO 1 mg DAILY [facility] Administration Furosemide 20 mg 12/20/17 20:00 12/21/17 09:28 Lasix - PO 20 mg DAILY [facility] Administration Lactulose 20 gm 12/16/17 17:51 12/20/17 09:32 Cephulac (Oral Use) PO 20 gm TID PRN Administration CONSTIPATION Levothyroxine Sodium 50 mcg 12/15/17 07:00 12/21/17 06:12 Synthroid - PO 50 mcg DAILY@0700 [facility] Administration Lorazepam 2 mg 12/17/17 18:45 Ativan Injection - IVPB 12/17/17 18:46 ONCE ONE Melatonin 5 mg 12/21/17 00:29 12/21/17 00:44 Melatonin PO 5 mg HS PRN Administration INSOMNIA Metoprolol Succinate 25 mg 12/16/17 10:00 12/21/17 09:28 Toprol Xl - PO 25 mg DAILY [facility] Administration Pantoprazole Sodium 40 mg 12/15/17 22:00 12/21/17 09:28 Protonix - PO 40 mg BID [facility] Administration Prednisone 50 mg 12/20/17 22:00 12/21/17 09:28 Deltasone - PO 50 mg BID [facility] Administration Sodium Chloride 1 spray 12/14/17 14:13 [place] Nasal [place] - NS Q4H PRN NASAL CONGESTION Spironolactone 50 mg 12/20/17 20:00 12/21/17 09:28 Aldactone - PO 50 mg DAILY [facility] Administration Tramadol HCl 50 mg 12/21/17 12:30 Ultram - PO 12/21/17 12:31 ONCE ONE ASSESSMENT/PLAN: Dispo: We will continue to follow the patient. Thank you for this consultative opportunity. PULMONARY/CCM Pt seen and examined. Agree with assessment and plan. Yogi Valladares MD <Yogi Valladares MD - Last Filed: 12/21/17 12:26> Visit type - Emergency Visit Emergency Visit: Yes ED Registration Date: 12/14/17 Care time: The patient presented to the Emergency Department on the above date and was hospitalized for further evaluation of their emergent condition. - New Patient This patient is new to me today: Yes Date on this admission: 12/20/17 - Critical Care Critical Care patient: Yes Total Critical Care Time (in minutes): 45 Critical Care Statement: The care of this patient involved high complexity decision making to prevent further life threatening deterioration of the patient 's condition and/or to evaluate & treat vital organ system(s) failure or risk of failure. <Malou Raman - Last Filed: 12/20/17 17:41>
--- NOTE | 2017-12-20 19:19 | PN ---
Progress Note (short form) - Note Progress Note: MET WITH PATIENT AND FAMILY DISCUSSION ABOUT CURRENT STATUS PATIENT TOLD SHE WAS IN EXTREMIS NEW LIVER METS- NOT PRESENT ON CT 09/26/17. LEFT SHIFT IN WBC SERIES SUGGESTS MYELOPTHESIS HAPTOGLOBIN <10 REFLECTS ONGOING HEMOLYSIS LOWER EXTREMITY WEAKNESS SUGGESTIVE OF EPIDURAL SPINE DISEASE PATIENT WAS LUCID DURING DISCUSSION AND UNDERSTOOD CURRENT STATUS OPTIONS 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 AWARE THAT CHEMOTHERAPY MAY NOT ONLY NOT BE EFFECTIVE, BUT IT COULD ALSO CAUSE ADDITIONAL HARM AND SUFFERING AND HASTEN HER . WOULD LIKE TO OBTAIN CT OF THORACIC AND LUMBAR SPINE (UNABLE TO TOLERATE MRI) Last Vital Signs Temp Pulse Resp BP Pulse Ox 97.8 F 70 20 139/70 97 12/20/17 15:53 12/20/17 15:53 12/20/17 15:53 12/20/17 15:53 12/20/17 09:00 DIMINISHED BREATH SOUNDS BILATERALLY COR-RSR SOFT ABDOMEN LOWER EXTREMITY WEAKNESS CBC, BMP 12/20/17 07:00 12/20/17 07:00 Current Medications Generic Name Dose Route Start Last Admin Trade Name Freq PRN Reason Stop Dose Admin Acetaminophen 650 mg 12/14/17 11:48 12/16/17 12:26 Tylenol - PO 650 mg Q4H PRN Administration FEVER Folic Acid 1 mg 12/15/17 15:45 12/20/17 09:32 Folic Acid - PO 1 mg DAILY ALVARADO Administration Lactulose 20 gm 12/16/17 17:51 12/20/17 09:32 Cephulac (Oral Use) PO 20 gm TID PRN Administration CONSTIPATION Levothyroxine Sodium 50 mcg 12/15/17 07:00 12/20/17 06:03 Synthroid - PO 50 mcg DAILY@0700 ALVARADO Administration Lorazepam 2 mg 12/17/17 18:45 Ativan Injection - IVPB 12/17/17 18:46 ONCE ONE Metoprolol Succinate 25 mg 12/16/17 10:00 12/20/17 09:32 Toprol Xl - PO 25 mg DAILY ALVARADO Administration Pantoprazole Sodium 40 mg 12/15/17 22:00 12/20/17 09:32 Protonix - PO 40 mg BID ALVARADO Administration Prednisone 50 mg 12/21/17 10:00 Deltasone - PO DAILY ALVARADO Sodium Chloride 1 spray 12/14/17 14:13 [place] Nasal [place] - NS Q4H PRN NASAL CONGESTION WOULD INCREASE PREDNISONE TO 100 MG DAILY
--- NOTE | 2017-12-20 19:32 | PN ---
Progress Note (short form) - Note Progress Note: CC: sob S: + lethargy, confusion over the weekend. confusion slightly improved today but weakness/lethargy persist. s/p lasix 20 mg IV x 1 yesterday. s/p platelets and PRBC's today. no sob, cp, palps, dizziness. Transferred to the ICU today. Current Medications Acetaminophen (Tylenol -) 650 mg PO Q4H PRN PRN Reason: FEVER Last Admin: 12/16/17 12:26 Dose: 650 mg Folic Acid (Folic Acid -) 1 mg PO DAILY [facility] Last Admin: 12/20/17 09:32 Dose: 1 mg Lactulose (Cephulac (Oral Use)) 20 gm PO TID PRN PRN Reason: CONSTIPATION Last Admin: 12/20/17 09:32 Dose: 20 gm Levothyroxine Sodium (Synthroid -) 50 mcg PO DAILY@0700 [facility] Last Admin: 12/20/17 06:03 Dose: 50 mcg Lorazepam (Ativan Injection -) 2 mg IVPB ONCE ONE Stop: 12/17/17 18:46 Metoprolol Succinate (Toprol Xl -) 25 mg PO DAILY [facility] Last Admin: 12/20/17 09:32 Dose: 25 mg Pantoprazole Sodium (Protonix -) 40 mg PO BID [facility] Last Admin: 12/20/17 09:32 Dose: 40 mg Prednisone (Deltasone -) 50 mg PO BID [facility] Sodium Chloride ([place] Nasal [place] -) 1 spray NS Q4H PRN PRN Reason: NASAL CONGESTION Vital Signs - 24 hr 12/19/17 12/19/17 12/19/17 20:11 21:00 21:44 Temperature 97.9 F 97.6 F Pulse Rate 72 68 Respiratory 20 20 20 Rate Blood Pressure 153/76 154/75 O2 Sat by Pulse 97 Oximetry (%) 12/20/17 12/20/17 12/20/17 06:39 09:00 11:20 Temperature 97.7 F 97.4 F L Pulse Rate 69 64 Respiratory 20 20 Rate Blood Pressure 129/64 135/70 O2 Sat by Pulse 97 Oximetry (%) 12/20/17 12/20/17 11:50 15:53 Temperature 97.5 F L 97.8 F Pulse Rate 78 70 Respiratory 20 20 Rate Blood Pressure 124/71 139/70 O2 Sat by Pulse Oximetry (%) Intake & Output 12/18/17 12/19/17 12/20/17 12/21/17 07:59 07:59 07:59 07:59 Intake Total 670 370 720 820 Output Total 700 2300 2550 500 Balance -30 0 -1830 320 Weight 240 lb 3.2 oz NAD, calm jvd mild elevation bibasilar rales, nl eff RRR nl s1 s2 no m/r/g + bs soft nt nd trace edema of LE. 1+ edema of LUE (chronic lymphedema) + dp/pt weak, lethargic. CBC, BMP 12/20/17 07:00 12/20/17 07:00 Laboratory Tests 12/19/17 12/19/17 12/20/17 06:52 06:52 07:00 Lactic Acid 3.3 H* Total Bilirubin 6.1 H D 7.9 H D AST 138 H 190 H ALT 34 43 Alkaline Phosphatase 124 H 129 H Albumin 2.1 L EKG: sr with pac's, borderline prolonged qt, non-specific t wave ab. no actue ischemic changes repeat ekg 12/18: sr. qt/qtc interval has shortened. tele: sr cxr: no acute pathology. by my review, suboptimal penetration to exclude pleural effusions. repeat cxr 12/19: no acute lung pathology. CT abd/pelvis: small bilateral pleural effusions L > R. No infiltrates/ masses. mod ascites. new hepatic lesions susp for mets. Mild bilateral hydronephrosis. extensive bony mets diffusely. LUE duplex u/s: no dvt echo 08/2017: tds. nl lv/rv size/fn. mod mac, otherwise nl valves. MPI 08/2017 (madhu): No ischemic ST-T changes. Probably no ischemia (anteroapical /apicoseptal defect improves partially; breast position differences cannot be definitively seen on raw projection images however. variable breast artifact more likely but cannot exclude superimposed anterior ischemia). Normal LVEF. Normal LV cavity size with no transient dilation. ASSESSMENT/PLAN 65 yo with pmhx of htn, hl, CAD/abnormal stress test, ventricular ectopy, gerd, hypothyroid, bilat breast Ca on chemo c/b symptomatic anemia requiring regular transfusions and also with bone mets c/b pathologic fx (s/p surgical repair) and xrt to left shoulder and lumbosacral spine who for admission for blood transfusions, hospital course complicated by sob. SOB/acute diastolic HF exacerbation/ascites ?malignant - On inital eval, pt appeared volume overloaded, s/p multiple PRBC transfusions. However, she has a history of urinary retention and noted to have ++ abdominal discomfort with urinary retention here (no improvement with hubbard). Per [facility], work up ongiong, has plan for mri of spine and urology consult. Since patient reasonably asx --> deferred lasix until further work up of urinary retention in order to prevent worsening of obstruction. - 12/20: hubbard in place, s/p multiple transfusions. given lasix 20 mg IV x 1 yesterday 12/19. Will start diuretic regimen for ascites today 12/20 with aldactone 50 mg/day and lasix 20 mg/day. Monitor bmp closely. - con't daily weights, i/o's. CAD/abnormal stress/hl: -never with angina sx's. current contraindications to asa and statin from hematology and hepatology perspective. -cont home BB with close bp monitoring. (BP now normalized, suspect vasovagal etiology for drop in bp while on commode on day of initial eval). hx of freq PVCs: -well documented and quantified on holter. Patient with preserved LV fxn --> benign. -on metoprolol - lyte repletion prn prolonged qtc: - borderline prolonged on initial ekg, improved on repeat. HTN: - con't toprol. med changes as above. metastatic breast ca/anemia/thrombocytopenia/hemolysis/ab lfts - per [facility]. ongoing transfusion requirement. cct 35 min
[2017-12-20] MEDS ORDERED: PT OWN MED DRAWER 7, Y5N ONE (21:29)
[2017-12-20] MEDS: SPIRONOLACTONE 25 MG TABLET (FP) PO SCH (21:30)
[2017-12-20] MEDS: FUROSEMIDE 20 MG TABLET (FP) PO SCH (21:31)
[2017-12-20] MEDS ORDERED: predniSONE 5 MG/5 ML ORAL SOLN- UNIT-DOSE CUP PO SCH (22:00)
[2017-12-21] MEDS ORDERED: MELATONIN 5 MG TABLETS PO PRN (00:29)
[2017-12-21] MEDS: ACETAMINOPHEN 325 MG TABLET (FP) PO PRN ×2 (00:44→06:12)
[2017-12-21] MEDS: LEVOTHYROXINE NA 50 MCG TABLET (FP) PO SCH (06:12)
[2017-12-21 06:35] LABS: HEMATOCRIT 19.6 % (32.4-45.2); HEMOGLOBIN 7.2 GM/dL (10.7-15.3); MCH 31.3 pg (25.7-33.7); MCHC 36.6 g/dl (32.0-36.0); MEAN CELL VOLUME 85.5 fl (80-96); MEAN PLT VOLUME 7.6 fl (7.5-11.1); RBC 2.29 M/mm3 (3.60-5.2); RDW 18.7 % (11.6-15.6); WHITE BLOOD COUNT 16.3 K/mm3 (4.0-10.0)
[2017-12-21 06:47] LABS: INR 1.71 (0.82-1.09); PROTHROMBIN TIME (PATIENT) 19.3 SEC (9.98-11.88)
[2017-12-21 06:50] LABS: ACTIVATED PTT 24.9 SECONDS (26.9-34.4)
[2017-12-21 07:11] LABS: ALBUMIN 2.2 g/dl (3.4-5.0); ANION GAP 11 (8-16); BILIRUBIN,TOTAL 9.5 mg/dL (0.2-1.0); BLOOD UREA NITROGEN 39 mg/dL (7-18); CALCIUM 7.4 mg/dL (8.5-10.1); CHLORIDE 110 mmol/L (98-107); CO2 22 mmol/L (21-32); CREATININE 0.9 mg/dL (0.55-1.02); GLUCOSE,RANDOM 173 mg/dL (74-106); PHOSPHOROUS 2.7 mg/dL (2.5-4.9); SGPT/ALT 45 U/L (12-78); SODIUM 143 mmol/L (136-145); TOT PROT 4.9 g/dl (6.4-8.2)
[2017-12-21 07:14] LABS: PLATELET COUNT 31 K/MM3 (134-434)
[2017-12-21 07:21] LABS: ALK PHOS 133 U/L (45-117)
[2017-12-21 07:46] LABS: MAGNESIUM 2.5 mg/dL (1.8-2.4); POTASSIUM 3.9 mmol/L (3.5-5.1); SGOT/AST 228 U/L (15-37)
[2017-12-21 07:47] LABS: LDH 2774 U/L (84-246)
[2017-12-21] MEDS: FUROSEMIDE 20 MG TABLET (FP) PO SCH (09:28)
[2017-12-21] MEDS: metoPROLOL SUCCINATE 25 MG TAB.SR.24H (FP) PO SCH (09:28)
[2017-12-21] MEDS: SPIRONOLACTONE 25 MG TABLET (FP) PO SCH (09:28)
[2017-12-21] MEDS: PANTOPRAZOLE 40 MG TABLET (FP) PO SCH (09:28)
[2017-12-21] MEDS: predniSONE 20 MG TABLET (UD) PO SCH (09:28)
[2017-12-21] MEDS: FOLIC ACID 1 MG TABLET (FP) PO SCH (09:28)
[2017-12-21] MEDS ORDERED: predniSONE 20 MG TABLET (UD) PO SCH (10:00)
--- NOTE | 2017-12-21 11:08 | PN ---
Progress Note, Physician History of Present Illness: Awake but confused Offers no complaints Jaundiced No fever/ chills but WBC remains elevated Cultures no growth - Current Medication List Current Medications: Active Medications Acetaminophen (Tylenol -) 650 mg PO Q4H PRN PRN Reason: FEVER Last Admin: 12/21/17 06:12 Dose: 650 mg Folic Acid (Folic Acid -) 1 mg PO DAILY [facility] Last Admin: 12/21/17 09:28 Dose: 1 mg Furosemide (Lasix -) 20 mg PO DAILY [facility] Last Admin: 12/21/17 09:28 Dose: 20 mg Lactulose (Cephulac (Oral Use)) 20 gm PO TID PRN PRN Reason: CONSTIPATION Last Admin: 12/20/17 09:32 Dose: 20 gm Levothyroxine Sodium (Synthroid -) 50 mcg PO DAILY@0700 [facility] Last Admin: 12/21/17 06:12 Dose: 50 mcg Lorazepam (Ativan Injection -) 2 mg IVPB ONCE ONE Stop: 12/17/17 18:46 Melatonin (Melatonin) 5 mg PO HS PRN PRN Reason: INSOMNIA Last Admin: 12/21/17 00:44 Dose: 5 mg Metoprolol Succinate (Toprol Xl -) 25 mg PO DAILY [facility] Last Admin: 12/21/17 09:28 Dose: 25 mg Pantoprazole Sodium (Protonix -) 40 mg PO BID [facility] Last Admin: 12/21/17 09:28 Dose: 40 mg Prednisone (Deltasone -) 50 mg PO BID [facility] Last Admin: 12/21/17 09:28 Dose: 50 mg Sodium Chloride ([place] Nasal [place] -) 1 spray NS Q4H PRN PRN Reason: NASAL CONGESTION Spironolactone (Aldactone -) 50 mg PO DAILY [facility] Last Admin: 12/21/17 09:28 Dose: 50 mg - Objective Vital Signs: Vital Signs Temperature 97.2 F L 12/21/17 10:00 Pulse Rate 65 12/21/17 10:00 Respiratory Rate 14 12/21/17 10:00 Blood Pressure 148/76 12/21/17 10:00 O2 Sat by Pulse Oximetry (%) 97 12/21/17 09:00 Constitutional: Yes: No Distress Eyes: Yes: Sclera Icterus Cardiovascular: Yes: Regular Rate and Rhythm, S1, S2 Respiratory: Yes: CTA Bilaterally Gastrointestinal: Yes: Normal Bowel Sounds, Soft, Abdomen, Obese. No: Tenderness Edema: Yes Labs: CBC, BMP 12/21/17 06:05 12/21/17 06:05 INR, PTT INR 1.71 (0.82-1.09) H 12/21/17 06:05 Assessment/Plan Lactic acidosis Leukocytosis ? leukemoid reaction Metastatic breast ca Observe off antibiotics Prognosis poor
--- NOTE | 2017-12-21 12:00 | PN ---
Physical Exam: SUBJECTIVE: Patient reported feeling weak, fatigue and malaise with poor appetite and lower back pain which is chronic. No other acute event overnight. OBJECTIVE: Vital Signs Period Temp Pulse Resp BP Sys/Zayas Pulse Ox Last 24 Hr 97.2 F-97.8 F 65-78 14-21 122-163/57-84 97-97 GENERAL:AAO x 3, appropriate to stated age, appear weak and lethargic but able to converse, in no acute distress. LUNGS: CTAB HEART: RRR, holosystolic murmur, S1 and S2 normal ABDOMEN: obese, +bs, nl x 4, ND/NT, no rebound EXTREMITIES: +1 pitting edema b/l NEUROLOGICAL: Cranial nerves II-XII grossly intact SKIN: Warm, dry, normal turgor, no rashes or lesions noted. Laboratory Results - last 24 hr 12/20/17 12/21/17 12/21/17 07:00 06:00 06:05 WBC 17.0 H 16.3 H Corrected WBC (auto) 14.91 RBC 2.29 L Hgb 7.2 L Hct 19.6 L MCV 85.5 MCH 31.3 MCHC 36.6 H RDW 18.7 H Plt Count 31 L* D MPV 7.6 D Total Counted 100 Neutrophils % (Manual) 78.0 Band Neutrophils % 3.0 Lymphocytes % (Manual) 12.0 Monocytes % (Manual) 3 L Myelocytes % (Man) 2 D Nucleated RBC % 14 H* Metamyelocytes 1 D Platelet Estimate Decreased Anisocytosis 1+ Microcytosis 1+ Macrocytosis 1+ Ovalocytes 1+ Acanthocytes (Spur) 1+ Schistocytes 1+ PT with INR INR PTT (Actin FS) Sodium Potassium Chloride Carbon Dioxide Anion Gap BUN Creatinine Creat Clearance w eGFR Random Glucose Lactic Acid 3.6 H* Calcium Phosphorus Magnesium Total Bilirubin AST ALT Alkaline Phosphatase LD Total Total Protein Albumin 12/21/17 12/21/17 06:05 06:05 WBC Corrected WBC (auto) RBC Hgb Hct MCV MCH MCHC RDW Plt Count MPV Total Counted Neutrophils % (Manual) Band Neutrophils % Lymphocytes % (Manual) Monocytes % (Manual) Myelocytes % (Man) Nucleated RBC % Metamyelocytes Platelet Estimate Anisocytosis Microcytosis Macrocytosis Ovalocytes Acanthocytes (Spur) Schistocytes PT with INR 19.30 H INR 1.71 H PTT (Actin FS) 24.9 L Sodium 143 Potassium 3.9 Chloride 110 H Carbon Dioxide 22 Anion Gap 11 BUN 39 H Creatinine 0.9 Creat Clearance w eGFR > 60 Random Glucose 173 H Lactic Acid Calcium 7.4 L Phosphorus 2.7 Magnesium 2.5 H Total Bilirubin 9.5 H D AST 228 H ALT 45 Alkaline Phosphatase 133 H LD Total 2774 H Total Protein 4.9 L Albumin 2.2 L Active Medications Generic Name Dose Route Start Last Admin Trade Name Freq PRN Reason Stop Dose Admin Acetaminophen 650 mg 12/14/17 11:48 12/21/17 06:12 Tylenol - PO 650 mg Q4H PRN Administration FEVER Folic Acid 1 mg 12/15/17 15:45 12/21/17 09:28 Folic Acid - PO 1 mg DAILY ALVARADO Administration Furosemide 20 mg 12/20/17 20:00 12/21/17 09:28 Lasix - PO 20 mg DAILY ALVARADO Administration Lactulose 20 gm 12/16/17 17:51 12/20/17 09:32 Cephulac (Oral Use) PO 20 gm TID PRN Administration CONSTIPATION Levothyroxine Sodium 50 mcg 12/15/17 07:00 12/21/17 06:12 Synthroid - PO 50 mcg DAILY@0700 ALVARADO Administration Lorazepam 2 mg 12/17/17 18:45 Ativan Injection - IVPB 12/17/17 18:46 ONCE ONE Melatonin 5 mg 12/21/17 00:29 12/21/17 00:44 Melatonin PO 5 mg HS PRN Administration INSOMNIA Metoprolol Succinate 25 mg 12/16/17 10:00 12/21/17 09:28 Toprol Xl - PO 25 mg DAILY ALVARADO Administration Pantoprazole Sodium 40 mg 12/15/17 22:00 12/21/17 09:28 Protonix - PO 40 mg BID ALVARADO Administration Prednisone 50 mg 12/20/17 22:00 12/21/17 09:28 Deltasone - PO 50 mg BID ALVARADO Administration Sodium Chloride 1 spray 12/14/17 14:13 [place] Nasal [place] - NS Q4H PRN NASAL CONGESTION Spironolactone 50 mg 12/20/17 20:00 12/21/17 09:28 Aldactone - PO 50 mg DAILY ALVARADO Administration ASSESSMENT/PLAN: 67 yo F h/o b/l breast CA with mets to BM, LN, and liver admitted to ICU for lethargy and confusion. Hepatic encephalopathy - 2/2 primary breast CA mets to liver - Improving - Cont. laculose Acute on chronic diastolic CHF exacerbation - Resolving - Cont. daily lasix 20mg and aldactone 50mg daily Primary Breast CA with mets - Heme/Onc onboard - Hospice vs. low dose chemo - CT thoracic/lumbar spine to r/o spinal mets Leukocytosis - 2/2 malignancy - Observe off abx per ID Thrombocytopenia - 2/2 BM mets - Transfuse plt as needed Prophylaxis - DVT chemoprophylaxis held 2/2 hematuria - GI ppx with Protonix Vitor Benites PGY2 Pager [phone] Visit type - Emergency Visit Emergency Visit: No - New Patient This patient is new to me today: No - Critical Care Critical Care patient: Yes Total Critical Care Time (in minutes): 30 Critical Care Statement: The care of this patient involved high complexity decision making to prevent further life threatening deterioration of the patient 's condition and/or to evaluate & treat vital organ system(s) failure or risk of failure.
--- NOTE | 2017-12-21 12:04 | PN ---
Progress Note (short form) - Note Progress Note: CC: sob S: confusion slightly improved today but weakness/lethargy persist. no sob, cp , palps, dizziness. Current Medications Generic Name Dose Route Start Last Admin Trade Name Freq PRN Reason Stop Dose Admin Acetaminophen 650 mg 12/14/17 11:48 12/21/17 06:12 Tylenol - PO 650 mg Q4H PRN Administration FEVER Folic Acid 1 mg 12/15/17 15:45 12/21/17 09:28 Folic Acid - PO 1 mg DAILY ALVARADO Administration Furosemide 20 mg 12/20/17 20:00 12/21/17 09:28 Lasix - PO 20 mg DAILY ALVARADO Administration Lactulose 20 gm 12/16/17 17:51 12/20/17 09:32 Cephulac (Oral Use) PO 20 gm TID PRN Administration CONSTIPATION Levothyroxine Sodium 50 mcg 12/15/17 07:00 12/21/17 06:12 Synthroid - PO 50 mcg DAILY@0700 AVLARADO Administration Lorazepam 2 mg 12/17/17 18:45 Ativan Injection - IVPB 12/17/17 18:46 ONCE ONE Melatonin 5 mg 12/21/17 00:29 12/21/17 00:44 Melatonin PO 5 mg HS PRN Administration INSOMNIA Metoprolol Succinate 25 mg 12/16/17 10:00 12/21/17 09:28 Toprol Xl - PO 25 mg DAILY ALVARADO Administration Pantoprazole Sodium 40 mg 12/15/17 22:00 12/21/17 09:28 Protonix - PO 40 mg BID ALVARADO Administration Prednisone 50 mg 12/20/17 22:00 12/21/17 09:28 Deltasone - PO 50 mg BID ALVARADO Administration Sodium Chloride 1 spray 12/14/17 14:13 [place] Nasal [place] - NS Q4H PRN NASAL CONGESTION Spironolactone 50 mg 12/20/17 20:00 12/21/17 09:28 Aldactone - PO 50 mg DAILY ALVARADO Administration Vital Signs Period Temp Pulse Resp BP Sys/Zayas Pulse Ox Last 24 Hr 97.2 F-97.8 F 65-76 14-21 122-163/57-84 97-97 NAD, calm jvd mild elevation bibasilar rales, nl eff RRR nl s1 s2 no m/r/g + bs soft nt nd trace edema of LE. 1+ edema of LUE (chronic lymphedema) weak, lethargic. CBC, BMP 12/21/17 06:05 12/21/17 06:05 EKG: sr with pac's, borderline prolonged qt, non-specific t wave ab. no actue ischemic changes repeat ekg 12/18: sr. qt/qtc interval has shortened. tele: sr cxr: no acute pathology. by my review, suboptimal penetration to exclude pleural effusions. repeat cxr 12/19: no acute lung pathology. CT abd/pelvis: small bilateral pleural effusions L > R. No infiltrates/ masses. mod ascites. new hepatic lesions susp for mets. Mild bilateral hydronephrosis. extensive bony mets diffusely. LUE duplex u/s: no dvt echo 08/2017: tds. nl lv/rv size/fn. mod mac, otherwise nl valves. MPI 08/2017 (madhu): No ischemic ST-T changes. Probably no ischemia (anteroapical /apicoseptal defect improves partially; breast position differences cannot be definitively seen on raw projection images however. variable breast artifact more likely but cannot exclude superimposed anterior ischemia). Normal LVEF. Normal LV cavity size with no transient dilation. ASSESSMENT/PLAN 65 yo with pmhx of htn, hl, CAD/abnormal stress test, ventricular ectopy, gerd, hypothyroid, bilat breast Ca on chemo c/b symptomatic anemia requiring regular transfusions and also with bone mets c/b pathologic fx (s/p surgical repair) and xrt to left shoulder and lumbosacral spine who for admission for blood transfusions, hospital course complicated by sob. SOB/acute diastolic HF exacerbation/ascites ?malignant - On inital eval, pt appeared volume overloaded, s/p multiple PRBC transfusions. However, she has a history of urinary retention and noted to have ++ abdominal discomfort with urinary retention here (no improvement with hubbard). Per [facility], work up ongiong, has plan for mri of spine and urology consult. Since patient reasonably asx --> deferred lasix until further work up of urinary retention in order to prevent worsening of obstruction. - 12/20: hubbard in place, s/p multiple transfusions. given lasix 20 mg IV x 1 yesterday 12/19. Will start diuretic regimen for ascites today 12/20 with aldactone 50 mg/day and lasix 20 mg/day. -12/21: cont same diuretics - con't daily weights, i/o's. CAD/abnormal stress/hl: -never with angina sx's. current contraindications to asa and statin from hematology and hepatology perspective. -cont home BB with close bp monitoring. (BP now normalized, suspect vasovagal etiology for drop in bp while on commode on day of initial eval). hx of freq PVCs: -well documented and quantified on holter. Patient with preserved LV fxn --> benign. -on metoprolol -lyte repletion prn HTN: - con't toprol. med changes as above. metastatic breast ca/anemia/thrombocytopenia/hemolysis/ab lfts - per [facility]. ongoing transfusion requirement.
[2017-12-21 12:28] LABS: BILIRUBIN,DIRECT 4.2 mg/dL (0.0-0.2)
--- NOTE | 2017-12-21 12:29 | PN ---
Teaching Attending Note Name of Resident: Vitor Benites ATTENDING PHYSICIAN STATEMENT I saw and evaluated the patient. I reviewed the resident's note and discussed the case with the resident. I agree with the resident's findings and plan as documented. SUBJECTIVE: Pt seen and examined in the ICU. Lethargic but arousable. Denies pain currently. Pt DNR/DNI. OBJECTIVE: Last Vital Signs Temp Pulse Resp BP Pulse Ox 97.2 F L 65 14 148/76 97 12/21/17 10:00 12/21/17 10:00 12/21/17 10:00 12/21/17 10:00 12/21/17 09:00 Intake & Output 12/18/17 12/19/17 12/20/17 12/21/17 23:59 23:59 23:59 23:59 Intake Total 579 281 1163 20 Output Total 600 3050 2700 450 Balance -200 -2760 -1230 -430 Weight 108.953 kg 108.664 kg Gen: lethargic, jaundiced Heart: RRR Lung: decreased breath sounds at the bases Abd: soft, nontender Ext: + edema CBC, BMP 12/21/17 06:05 12/21/17 06:05 Hepatic Panel Total Bilirubin 9.5 mg/dL (0.2-1.0) H D 12/21/17 06:05 Direct Bilirubin 2.2 mg/dL (0.0-0.2) H 12/16/17 07:10 AST 228 U/L (15-37) H 12/21/17 06:05 ALT 45 U/L (12-78) 12/21/17 06:05 Alkaline Phosphatase 133 U/L (45-117) H 12/21/17 06:05 Albumin 2.2 g/dl (3.4-5.0) L 12/21/17 06:05 INR, PTT INR 1.71 (0.82-1.09) H 12/21/17 06:05 Active Medications Acetaminophen (Tylenol -) 650 mg PO Q4H PRN PRN Reason: FEVER Last Admin: 12/21/17 06:12 Dose: 650 mg Folic Acid (Folic Acid -) 1 mg PO DAILY [facility] Last Admin: 12/21/17 09:28 Dose: 1 mg Furosemide (Lasix -) 20 mg PO DAILY [facility] Last Admin: 12/21/17 09:28 Dose: 20 mg Lactulose (Cephulac (Oral Use)) 20 gm PO TID PRN PRN Reason: CONSTIPATION Last Admin: 12/20/17 09:32 Dose: 20 gm Levothyroxine Sodium (Synthroid -) 50 mcg PO DAILY@0700 [facility] Last Admin: 12/21/17 06:12 Dose: 50 mcg Lorazepam (Ativan Injection -) 2 mg IVPB ONCE ONE Stop: 12/17/17 18:46 Melatonin (Melatonin) 5 mg PO HS PRN PRN Reason: INSOMNIA Last Admin: 12/21/17 00:44 Dose: 5 mg Metoprolol Succinate (Toprol Xl -) 25 mg PO DAILY [facility] Last Admin: 12/21/17 09:28 Dose: 25 mg Pantoprazole Sodium (Protonix -) 40 mg PO BID [facility] Last Admin: 12/21/17 09:28 Dose: 40 mg Prednisone (Deltasone -) 50 mg PO BID [facility] Last Admin: 12/21/17 09:28 Dose: 50 mg Sodium Chloride ([place] Nasal [place] -) 1 spray NS Q4H PRN PRN Reason: NASAL CONGESTION Spironolactone (Aldactone -) 50 mg PO DAILY [facility] Last Admin: 12/21/17 09:28 Dose: 50 mg Tramadol HCl (Ultram -) 50 mg PO ONCE ONE Stop: 12/21/17 12:31 ASSESSMENT AND PLAN: Metastatic Breast Ca with bone/liver mets Acute Diastolic Heart Failure Acute Liver Failure Hepatic Encephalopathy Coagulopathy Acute Hemolytic Anemia Thrombocytopenia CAD HTN - monitor CBC, coags - transfuse as needed - lactulose - monitor ammonia level - continue prednisone - monitor hemolysis labs, LDH, LFTs - pain control - agree with DNR/DNI - continue discussions regarding goals of care, recommend palliative/comfort measures critical care time spent in reviewing chart, evaluating patient and formulating plan 35 min
[2017-12-21] MEDS ORDERED: traMADol HCL 50 MG TABLET PO ONE (12:30)
--- NOTE | 2017-12-21 16:53 | PN ---
Progress Note, Physician Chief Complaint: AWAKE IN MODERATE/SEVERE DISTRESS FAMILY BEDSIDE HAS NOT EATEN TODAY - Current Medication List Current Medications: Active Medications Acetaminophen (Tylenol -) 650 mg PO Q4H PRN PRN Reason: FEVER Last Admin: 12/21/17 06:12 Dose: 650 mg Folic Acid (Folic Acid -) 1 mg PO DAILY [facility] Last Admin: 12/21/17 09:28 Dose: 1 mg Furosemide (Lasix -) 20 mg PO DAILY [facility] Last Admin: 12/21/17 09:28 Dose: 20 mg Lactulose (Cephulac (Oral Use)) 20 gm PO TID PRN PRN Reason: CONSTIPATION Last Admin: 12/20/17 09:32 Dose: 20 gm Levothyroxine Sodium (Synthroid -) 50 mcg PO DAILY@0700 [facility] Last Admin: 12/21/17 06:12 Dose: 50 mcg Lorazepam (Ativan Injection -) 2 mg IVPB ONCE ONE Stop: 12/17/17 18:46 Melatonin (Melatonin) 5 mg PO HS PRN PRN Reason: INSOMNIA Last Admin: 12/21/17 00:44 Dose: 5 mg Metoprolol Succinate (Toprol Xl -) 25 mg PO DAILY [facility] Last Admin: 12/21/17 09:28 Dose: 25 mg Pantoprazole Sodium (Protonix -) 40 mg PO BID [facility] Last Admin: 12/21/17 09:28 Dose: 40 mg Prednisone (Deltasone -) 50 mg PO BID [facility] Last Admin: 12/21/17 09:28 Dose: 50 mg Sodium Chloride ([place] Nasal [place] -) 1 spray NS Q4H PRN PRN Reason: NASAL CONGESTION Spironolactone (Aldactone -) 50 mg PO DAILY [facility] Last Admin: 12/21/17 09:28 Dose: 50 mg - Objective Vital Signs: Vital Signs Temperature 97.6 F 12/21/17 14:00 Pulse Rate 69 12/21/17 14:00 Respiratory Rate 14 12/21/17 14:00 Blood Pressure 133/67 12/21/17 14:00 O2 Sat by Pulse Oximetry (%) 97 12/21/17 09:00 Constitutional: Yes: Moderate Distress Eyes: Yes: Sclera Icterus HENT: Yes: WNL Neck: Yes: WNL Cardiovascular: Yes: WNL Respiratory: Yes: On Nasal O2 Gastrointestinal: Yes: WNL Genitourinary: Yes: Incontinence Musculoskeletal: Yes: Muscle Weakness Extremities: Yes: Other Edema: Yes Peripheral Pulses WNL: Yes Integumentary: Yes: Jaundice Wound/Incision: Yes: Clean/Dry Neurological: Yes: Pre-Existing Deficit, Weakness ...Motor Strength: LLE, RLE Psychiatric: Yes: Other Labs: CBC, BMP 12/21/17 06:05 12/21/17 06:05 INR, PTT INR 1.71 (0.82-1.09) H 12/21/17 06:05 Problem List - Problems (1) Jaundice Code(s): R17 - UNSPECIFIED JAUNDICE (2) Metastatic cancer Code(s): C79.9 - SECONDARY MALIGNANT NEOPLASM OF UNSPECIFIED SITE (3) Occult blood in stools Code(s): R19.5 - OTHER FECAL ABNORMALITIES (4) Urinary retention Code(s): R33.9 - RETENTION OF URINE, UNSPECIFIED (5) Back pain Code(s): M54.9 - DORSALGIA, UNSPECIFIED Qualifiers: Back pain location: low back pain Chronicity: acute Back pain laterality : right Sciatica presence: with sciatica Sciatica laterality: sciatica of right side Qualified Code(s): M54.41 - Lumbago with sciatica, right side (6) Chronic disease anemia Code(s): D63.8 - ANEMIA IN OTHER CHRONIC DISEASES CLASSIFIED ELSEWHERE (7) HTN (hypertension) Code(s): I10 - ESSENTIAL (PRIMARY) HYPERTENSION Assessment/Plan WILL LIKELY NEED PRBC TRANSFUSION ADDING XIFAXIN FOR ENCEPHALOPATHY LUMBAR CT PENDING ADDING ENSURE AND MAGIC CUP FOR NUTRITION DVT PROPHLAXIS STD'S ONCOLOGY FOLLOW UP
--- NOTE | 2017-12-21 19:08 | PN ---
Progress Note (short form) - Note Progress Note: Patient seen and examined. +Jaundice +fatigue +AMS ( waxing and waning ) O/E General: jaundiced , lethargic HEENT: NCAT Cor: RRR Lungs: CTA b/l ABd: RUQ tenderness Extremities: 2+ pitting edema Neuro: Drowsy Last Vital Signs Temp Pulse Resp BP Pulse Ox 97.9 F 69 18 133/75 99 12/18/17 06:00 12/18/17 06:00 12/18/17 06:00 12/18/17 06:00 12/18/17 09:00 CBC, BMP 12/18/17 06:35 12/18/17 06:35 Current Medications Generic Name Dose Route Start Last Admin Trade Name Freq PRN Reason Stop Dose Admin Acetaminophen 650 mg 12/14/17 11:48 12/16/17 12:26 Tylenol - PO 650 mg Q4H PRN Administration FEVER Folic Acid 1 mg 12/15/17 15:45 12/18/17 10:28 Folic Acid - PO 1 mg DAILY [facility] Administration Sodium Chloride 1,000 mls @ 50 mls/hr 12/15/17 18:30 12/17/17 18:30 Normal Saline - IV Not Given ASDIR [facility] Lactulose 20 gm 12/16/17 17:51 Cephulac (Oral Use) PO TID PRN CONSTIPATION Levothyroxine Sodium 50 mcg 12/15/17 07:00 12/18/17 06:42 Synthroid - PO 50 mcg DAILY@0700 [facility] Administration Lorazepam 2 mg 12/17/17 18:45 Ativan Injection - IVPB 12/17/17 18:46 ONCE ONE Metoprolol Succinate 25 mg 12/16/17 10:00 12/18/17 10:26 Toprol Xl - PO 25 mg DAILY [facility] Administration Pantoprazole Sodium 40 mg 12/15/17 22:00 12/18/17 10:28 Protonix - PO 40 mg BID [facility] Administration Prednisone 50 mg 12/16/17 10:15 12/18/17 10:26 Deltasone - PO 50 mg BID [facility] Administration Sodium Chloride 1 spray 12/14/17 14:13 [place] Nasal [place] - NS Q4H PRN NASAL CONGESTION Progressive metastatic breast with ,liver mets, worsening encephalopathy and MAHA Supportive care with PRBCs, Steroids, Lactulose for now await Lumbar spine CT detailed discussion held by on 12/20 DNR/DNI Overall GOC to be established yet.
--- NOTE | 2017-12-21 20:05 | PN ---
Progress Note (short form) - Note Progress Note: Pt. seen/examined. She is jaundiced, fatigued, encephalopathic. Reports she can feel that she has to urinate. CT L/S spine reported with heterogenouis sclerosis throughout visualized bones. Spinal canal to my review appears patent but CT is a poor method to look for intradural mets/edema. -Urinary retention etiology unclear, with l/s spine mets involving cauda/conus she should have had incontinence rather than retention,now with Baeza. Rx. of sclerotic mets as per oncology. Thank you, Tr Lamas MD
[2017-12-21] MEDS ORDERED: HYDROmorphone HCL CARPU-JECT 2 MG/1 ML DISP.SYRIN IVPUSH ONE (22:33)
[2017-12-21] MEDS ORDERED: LORazepam 2 MG/ML SDV VIAL IVPB ONE (23:15)
[2017-12-22] MEDS: methylPREDNISolone NA SUCC 40 MG/1 ML VIAL IVPUSH SCH ×3 (00:27→22:47)
[2017-12-22] MEDS: PANTOPRAZOLE SODIUM 40 MG VIAL IVPUSH SCH ×3 (00:27→22:47)
[2017-12-22] MEDS: LEVOTHYROXINE NA 50 MCG TABLET (FP) PO SCH (06:11)
[2017-12-22 06:45] LABS: HEMATOCRIT 18.9 % (32.4-45.2); MCH 31.1 pg (25.7-33.7); MCHC 36.5 g/dl (32.0-36.0); MEAN CELL VOLUME 85.1 fl (80-96); MEAN PLT VOLUME 7.3 fl (7.5-11.1); RBC 2.22 M/mm3 (3.60-5.2); RDW 20.8 % (11.6-15.6); WHITE BLOOD COUNT 21.2 K/mm3 (4.0-10.0)
[2017-12-22 06:54] LABS: HEMOGLOBIN 6.9 GM/dL (10.7-15.3); INR 1.67 (0.82-1.09); PLATELET COUNT 29 K/MM3 (134-434); PROTHROMBIN TIME (PATIENT) 18.9 SEC (9.98-11.88)
[2017-12-22 06:56] LABS: ACTIVATED PTT 23.2 SECONDS (26.9-34.4)
[2017-12-22 07:43] LABS: CHLORIDE 110 mmol/L (98-107); SODIUM 142 mmol/L (136-145)
[2017-12-22 07:51] LABS: ALBUMIN 2.1 g/dl (3.4-5.0); ALK PHOS 135 U/L (45-117); ANION GAP 9 (8-16); BILIRUBIN,TOTAL 12.1 mg/dL (0.2-1.0); BLOOD UREA NITROGEN 47 mg/dL (7-18); CALCIUM 7.4 mg/dL (8.5-10.1); CO2 23 mmol/L (21-32); GLUCOSE,RANDOM 169 mg/dL (74-106); SGPT/ALT 48 U/L (12-78); TOT PROT 4.8 g/dl (6.4-8.2)
[2017-12-22 07:59] LABS: POTASSIUM 4.3 mmol/L (3.5-5.1); SGOT/AST 290 U/L (15-37)
--- NOTE | 2017-12-22 10:22 | PN ---
Progress Note, Physician History of Present Illness: Awake but lethargic Offers no complaints Jaundiced No fever/ chills. WBC remains elevated 21K Cultures no growth - Current Medication List Current Medications: Active Medications Acetaminophen (Tylenol -) 650 mg PO Q4H PRN PRN Reason: FEVER Last Admin: 12/21/17 06:12 Dose: 650 mg Fentanyl (Sublimaze Injection -) 25 mcg IVPUSH Q2H PRN PRN Reason: PAIN LEVEL 4 - 6 Stop: 12/22/17 23:19 Last Admin: 12/22/17 08:22 Dose: 25 mcg Fentanyl (Sublimaze Injection -) 50 mcg IVPUSH Q2H PRN PRN Reason: PAIN LEVEL 7 - 10 Stop: 12/22/17 23:29 Folic Acid (Folic Acid -) 1 mg PO DAILY [facility] Last Admin: 12/21/17 09:28 Dose: 1 mg Furosemide (Lasix -) 20 mg PO DAILY [facility] Last Admin: 12/21/17 09:28 Dose: 20 mg Hydromorphone HCl (Dilaudid Injection -) 2 mg IVPUSH ONCE ONE Stop: 12/21/17 22:34 Lactulose (Cephulac (Oral Use)) 20 gm PO TID PRN PRN Reason: CONSTIPATION Last Admin: 12/20/17 09:32 Dose: 20 gm Levothyroxine Sodium (Synthroid -) 50 mcg PO DAILY@0700 [facility] Last Admin: 12/22/17 06:11 Dose: Not Given Lorazepam (Ativan Injection -) 2 mg IVPB ONCE ONE Stop: 12/21/17 23:16 Melatonin (Melatonin) 5 mg PO HS PRN PRN Reason: INSOMNIA Last Admin: 12/21/17 00:44 Dose: 5 mg Methylprednisolone Sodium Succinate (Solu-Medrol -) 40 mg IVPUSH BID [facility] Last Admin: 12/22/17 00:27 Dose: 40 mg Metoprolol Succinate (Toprol Xl -) 25 mg PO DAILY [facility] Last Admin: 12/21/17 09:28 Dose: 25 mg Pantoprazole Sodium (Protonix Iv) 40 mg IVPUSH BID [facility] Last Admin: 12/22/17 00:27 Dose: 40 mg Sodium Chloride ([place] Nasal [place] -) 1 spray NS Q4H PRN PRN Reason: NASAL CONGESTION Spironolactone (Aldactone -) 50 mg PO DAILY [facility] Last Admin: 12/21/17 09:28 Dose: 50 mg - Objective Vital Signs: Vital Signs Temperature 98.4 F 12/22/17 06:00 Pulse Rate 71 12/22/17 08:00 Respiratory Rate 12 12/22/17 08:00 Blood Pressure 137/64 12/22/17 08:00 O2 Sat by Pulse Oximetry (%) 98 12/22/17 01:06 Constitutional: Yes: No Distress Eyes: Yes: Sclera Icterus Cardiovascular: Yes: Regular Rate and Rhythm, S1, S2 Respiratory: Yes: Diminished Gastrointestinal: Yes: Normal Bowel Sounds, Soft, Abdomen, Obese. No: Tenderness Edema: Yes Labs: CBC, BMP 12/22/17 05:50 12/22/17 05:50 INR, PTT INR 1.67 (0.82-1.09) H 12/22/17 05:50 Assessment/Plan Lactic acidosis Leukocytosis ? leukemoid reaction Metastatic breast ca Observe off antibiotics Prognosis poor
[2017-12-22] MEDS: FOLIC ACID 1 MG TABLET (FP) PO SCH (11:00)
[2017-12-22] MEDS: FUROSEMIDE 20 MG TABLET (FP) PO SCH (11:00)
[2017-12-22] MEDS: SPIRONOLACTONE 25 MG TABLET (FP) PO SCH (11:00)
[2017-12-22 11:09] LABS: CORRECTED WBC 18.43 K/mm3
[2017-12-22 11:12] LABS: ANISOCYTOSIS 1+; MACROCYTOSIS 1+
[2017-12-22 11:13] LABS: ACANTHOCYTES 1+; OVALOCYTE 1+; PLATELET ESTIMATE DECREASED
--- NOTE | 2017-12-22 11:13 | PN ---
Progress Note (short form) - Note Progress Note: CC: sob S: confusion slightly improved today but weakness/lethargy persist. no sob, cp , palps, dizziness. Current Medications Generic Name Dose Route Start Last Admin Trade Name Freq PRN Reason Stop Dose Admin Acetaminophen 650 mg 12/14/17 11:48 12/21/17 06:12 Tylenol - PO 650 mg Q4H PRN Administration FEVER Fentanyl 25 mcg 12/21/17 23:20 12/22/17 08:22 Sublimaze Injection - IVPUSH 12/22/17 23:19 25 mcg Q2H PRN Administration PAIN LEVEL 4 - 6 Fentanyl 50 mcg 12/21/17 23:21 Sublimaze Injection - IVPUSH 12/22/17 23:29 Q2H PRN PAIN LEVEL 7 - 10 Folic Acid 1 mg 12/15/17 15:45 12/21/17 09:28 Folic Acid - PO 1 mg DAILY [facility] Administration Furosemide 20 mg 12/20/17 20:00 12/21/17 09:28 Lasix - PO 20 mg DAILY [facility] Administration Hydromorphone HCl 2 mg 12/21/17 22:33 Dilaudid Injection - IVPUSH 12/21/17 22:34 ONCE ONE Lactulose 20 gm 12/16/17 17:51 12/20/17 09:32 Cephulac (Oral Use) PO 20 gm TID PRN Administration CONSTIPATION Levothyroxine Sodium 50 mcg 12/15/17 07:00 12/22/17 06:11 Synthroid - PO Not Given DAILY@0700 [facility] Lorazepam 2 mg 12/21/17 23:15 Ativan Injection - IVPB 12/21/17 23:16 ONCE ONE Melatonin 5 mg 12/21/17 00:29 12/21/17 00:44 Melatonin PO 5 mg HS PRN Administration INSOMNIA Methylprednisolone Sodium Succinate 40 mg 12/21/17 23:15 12/22/17 00:27 Solu-Medrol - IVPUSH 40 mg BID [facility] Administration Metoprolol Succinate 25 mg 12/16/17 10:00 12/21/17 09:28 Toprol Xl - PO 25 mg DAILY [facility] Administration Pantoprazole Sodium 40 mg 12/21/17 23:15 12/22/17 00:27 Protonix Iv IVPUSH 40 mg BID [facility] Administration Sodium Chloride 1 spray 12/14/17 14:13 [place] Nasal [place] - NS Q4H PRN NASAL CONGESTION Spironolactone 50 mg 12/20/17 20:00 12/21/17 09:28 Aldactone - PO 50 mg DAILY [facility] Administration Vital Signs Period Temp Pulse Resp BP Sys/Zayas Pulse Ox Last 24 Hr 97.6 F-98.4 F 57-78 08-22 133-166/58-88 98-98 NAD, calm jvd mild elevation bibasilar rales, poor eff RRR nl s1 s2 no m/r/g + bs soft nt nd trace edema of LE. 1+ edema of LUE (chronic lymphedema) weak, lethargic. CBC, BMP 12/22/17 05:50 12/22/17 05:50 EKG: sr with pac's, borderline prolonged qt, non-specific t wave ab. no actue ischemic changes repeat ekg 12/18: sr. qt/qtc interval has shortened. tele: sr cxr: no acute pathology. by my review, suboptimal penetration to exclude pleural effusions. repeat cxr 12/19: no acute lung pathology. CT abd/pelvis: small bilateral pleural effusions L > R. No infiltrates/ masses. mod ascites. new hepatic lesions susp for mets. Mild bilateral hydronephrosis. extensive bony mets diffusely. LUE duplex u/s: no dvt echo 08/2017: tds. nl lv/rv size/fn. mod mac, otherwise nl valves. MPI 08/2017 (madhu): No ischemic ST-T changes. Probably no ischemia (anteroapical /apicoseptal defect improves partially; breast position differences cannot be definitively seen on raw projection images however. variable breast artifact more likely but cannot exclude superimposed anterior ischemia). Normal LVEF. Normal LV cavity size with no transient dilation. ASSESSMENT/PLAN 65 yo with pmhx of htn, hl, CAD/abnormal stress test, ventricular ectopy, gerd, hypothyroid, bilat breast Ca on chemo c/b symptomatic anemia requiring regular transfusions and also with bone mets c/b pathologic fx (s/p surgical repair) and xrt to left shoulder and lumbosacral spine who for admission for blood transfusions, hospital course complicated by sob. SOB/acute diastolic HF exacerbation/ascites ?malignant - On inital eval, pt appeared volume overloaded, s/p multiple PRBC transfusions. However, she has a history of urinary retention and noted to have ++ abdominal discomfort with urinary retention here (no improvement with hubbard). Per [facility], work up ongiong, has plan for mri of spine and urology consult. Since patient reasonably asx --> deferred lasix until further work up of urinary retention in order to prevent worsening of obstruction. - 12/20: hubbard in place, s/p multiple transfusions. given lasix 20 mg IV x 1 yesterday 12/19. Will start diuretic regimen for ascites today 12/20 with aldactone 50 mg/day and lasix 20 mg/day. -12/21-: cont same diuretics - con't daily weights, i/o's. CAD/abnormal stress/hl: -never with angina sx's. current contraindications to asa and statin from hematology and hepatology perspective. -cont home BB with close bp monitoring. (BP now normalized, suspect vasovagal etiology for drop in bp while on commode on day of initial eval). hx of freq PVCs: -well documented and quantified on holter. Patient with preserved LV fxn --> benign. -on metoprolol -lyte repletion prn HTN: - con't toprol. med changes as above. metastatic breast ca/anemia/thrombocytopenia/hemolysis/ab lfts - per [facility]. ongoing transfusion requirement.
[2017-12-22] MEDS: metoPROLOL SUCCINATE 25 MG TAB.SR.24H (FP) PO SCH (12:50)
--- NOTE | 2017-12-22 13:11 | PN ---
Physical Exam: SUBJECTIVE: Patient seen and examined in ICU. Reports that she's more comfortable today. OBJECTIVE: Vital Signs Period Temp Pulse Resp BP Sys/Zayas Pulse Ox Last 24 Hr 97.5 F-98.4 F 60-78 12-18 133-166/58-88 98-98 GENERAL: The patient is awake, alert, in no acute distress HEAD: Normal with no signs of trauma. EYES: PERRL, extraocular movements intact, sclera icteric ENT: Ears normal, nares patent, oropharynx clear without exudates, moist mucous membranes. NECK: Trachea midline, full range of motion, supple. LUNGS: Breath sounds equal, clear to auscultation bilaterally HEART: Regular rate and rhythm, S1, S2 without murmur, rub or gallop. ABDOMEN: Soft, nontender, nondistended, normoactive bowel sounds, no guarding, no rebound, no hepatosplenomegaly, no masses. EXTREMITIES: 2+ pulses, warm, well-perfused, no edema. SKIN: Warm, dry, jaundiced Laboratory Results - last 24 hr 12/19/17 12/22/17 12/22/17 13:33 05:50 05:50 WBC 21.2 H D Corrected WBC (auto) 18.43 RBC 2.22 L Hgb 6.9 L* Hct 18.9 L MCV 85.1 MCH 31.1 MCHC 36.5 H RDW 20.8 H D Plt Count 29 L* MPV 7.3 L Total Counted 100 Neutrophils % No Result Required. Neutrophils % (Manual) 75.0 Band Neutrophils % 7.0 Lymphocytes % No Result Required. Lymphocytes % (Manual) 8.0 D Monocytes % (Manual) 3 L Eosinophils % (Manual) 2.0 D Myelocytes % (Man) 3 H D Nucleated RBC % 15 H* Metamyelocytes 2 D Platelet Estimate Decreased Polychromasia 1+ Anisocytosis 1+ Microcytosis 1+ Macrocytosis 1+ Ovalocytes 1+ Acanthocytes (Spur) 1+ Schistocytes 1+ PT with INR 18.90 H INR 1.67 H PTT (Actin FS) 23.2 L Sodium Potassium Chloride Carbon Dioxide Anion Gap BUN Creatinine Creat Clearance w eGFR Random Glucose Lactic Acid Calcium Total Bilirubin AST ALT Alkaline Phosphatase Total Protein Albumin Blood Type O POSITIVE Antibody Screen Negative Crossmatch See Detail 12/22/17 12/22/17 05:50 05:50 WBC Corrected WBC (auto) RBC Hgb Hct MCV MCH MCHC RDW Plt Count MPV Total Counted Neutrophils % Neutrophils % (Manual) Band Neutrophils % Lymphocytes % Lymphocytes % (Manual) Monocytes % (Manual) Eosinophils % (Manual) Myelocytes % (Man) Nucleated RBC % Metamyelocytes Platelet Estimate Polychromasia Anisocytosis Microcytosis Macrocytosis Ovalocytes Acanthocytes (Spur) Schistocytes PT with INR INR PTT (Actin FS) Sodium 142 Potassium 4.3 Chloride 110 H Carbon Dioxide 23 Anion Gap 9 BUN 47 H Creatinine 1.0 Creat Clearance w eGFR 55.64 Random Glucose 169 H Lactic Acid 3.3 H* Calcium 7.4 L Total Bilirubin 12.1 H D AST 290 H ALT 48 Alkaline Phosphatase 135 H Total Protein 4.8 L Albumin 2.1 L Blood Type Antibody Screen Crossmatch Active Medications Generic Name Dose Route Start Last Admin Trade Name Freq PRN Reason Stop Dose Admin Acetaminophen 650 mg 12/14/17 11:48 12/21/17 06:12 Tylenol - PO 650 mg Q4H PRN Administration FEVER Fentanyl 25 mcg 12/21/17 23:20 12/22/17 08:22 Sublimaze Injection - IVPUSH 12/22/17 23:19 25 mcg Q2H PRN Administration PAIN LEVEL 4 - 6 Fentanyl 50 mcg 12/21/17 23:21 Sublimaze Injection - IVPUSH 12/22/17 23:29 Q2H PRN PAIN LEVEL 7 - 10 Folic Acid 1 mg 12/15/17 15:45 12/21/17 09:28 Folic Acid - PO 1 mg DAILY [facility] Administration Furosemide 20 mg 12/20/17 20:00 12/21/17 09:28 Lasix - PO 20 mg DAILY [facility] Administration Hydromorphone HCl 2 mg 12/21/17 22:33 Dilaudid Injection - IVPUSH 12/21/17 22:34 ONCE ONE Lactulose 20 gm 12/16/17 17:51 12/20/17 09:32 Cephulac (Oral Use) PO 20 gm TID PRN Administration CONSTIPATION Levothyroxine Sodium 50 mcg 12/15/17 07:00 12/22/17 06:11 Synthroid - PO Not Given DAILY@0700 [facility] Lorazepam 2 mg 12/21/17 23:15 Ativan Injection - IVPB 12/21/17 23:16 ONCE ONE Melatonin 5 mg 12/21/17 00:29 12/21/17 00:44 Melatonin PO 5 mg HS PRN Administration INSOMNIA Methylprednisolone Sodium Succinate 40 mg 12/21/17 23:15 12/22/17 12:50 Solu-Medrol - IVPUSH 40 mg BID [facility] Administration Metoprolol Succinate 25 mg 12/16/17 10:00 12/22/17 12:50 Toprol Xl - PO 25 mg DAILY [facility] Administration Pantoprazole Sodium 40 mg 12/21/17 23:15 12/22/17 00:27 Protonix Iv IVPUSH 40 mg BID [facility] Administration Sodium Chloride 1 spray 12/14/17 14:13 [place] Nasal [place] - NS Q4H PRN NASAL CONGESTION Spironolactone 50 mg 12/20/17 20:00 12/21/17 09:28 Aldactone - PO 50 mg DAILY [facility] Administration ASSESSMENT/PLAN: 67 yo F h/o b/l breast CA with mets to BM, LN, and liver admitted to ICU for lethargy and confusion. Hepatic encephalopathy - 2/2 primary breast CA mets to liver - Improving mental status today - Continue laculose Pain - fentanyl PRN Acute on chronic diastolic CHF exacerbation - Resolving - Cont. daily lasix 20mg and aldactone 50mg daily Primary Breast CA with mets - Heme/Onc onboard - Hospice vs. low dose chemo - CT thoracic/lumbar spine shows multiple bony mets - Pending family decision Leukocytosis - 2/2 malignancy - Observe off abx per ID Thrombocytopenia - 2/2 BM mets - Transfuse plt today Anemia - Hgb 6.9, given 2 units today Prophylaxis - DVT chemoprophylaxis held 2/2 hematuria - GI ppx with Protonix Dispo -DNR/DNI -Pending family discussion of goals of care David Vazquez EM PGY-1 Visit type - Emergency Visit Emergency Visit: Yes ED Registration Date: 12/14/17 Care time: The patient presented to the Emergency Department on the above date and was hospitalized for further evaluation of their emergent condition. - New Patient This patient is new to me today: No - Critical Care Critical Care patient: Yes Total Critical Care Time (in minutes): 35 Critical Care Statement: The care of this patient involved high complexity decision making to prevent further life threatening deterioration of the patient 's condition and/or to evaluate & treat vital organ system(s) failure or risk of failure.
--- NOTE | 2017-12-22 13:33 | PN ---
Teaching Attending Note Name of Resident: David Vazquez ATTENDING PHYSICIAN STATEMENT I saw and evaluated the patient. I reviewed the resident's note and discussed the case with the resident. I agree with the resident's findings and plan as documented. SUBJECTIVE: Patient seen and examined in the ICU. Lethargic but arousable. Reports pain is controlled. Denies CP or SOB. OBJECTIVE: Intake & Output 12/19/17 12/20/17 12/21/17 12/22/17 23:59 23:59 23:59 23:59 Intake Total 290 1470 120 450 Output Total 3050 2700 1250 1900 Balance -2760 -1230 -1130 -1450 Weight 240 lb 3.2 oz 239 lb 9 oz Last Vital Signs Temp Pulse Resp BP Pulse Ox 97.5 F L 65 14 143/76 98 12/22/17 10:00 12/22/17 10:00 12/22/17 10:00 12/22/17 10:00 12/22/17 09:00 Active Medications Acetaminophen (Tylenol -) 650 mg PO Q4H PRN PRN Reason: FEVER Last Admin: 12/21/17 06:12 Dose: 650 mg Fentanyl (Sublimaze Injection -) 25 mcg IVPUSH Q2H PRN PRN Reason: PAIN LEVEL 4 - 6 Stop: 12/22/17 23:19 Last Admin: 12/22/17 08:22 Dose: 25 mcg Fentanyl (Sublimaze Injection -) 50 mcg IVPUSH Q2H PRN PRN Reason: PAIN LEVEL 7 - 10 Stop: 12/22/17 23:29 Folic Acid (Folic Acid -) 1 mg PO DAILY [facility] Last Admin: 12/21/17 09:28 Dose: 1 mg Furosemide (Lasix -) 20 mg PO DAILY [facility] Last Admin: 12/21/17 09:28 Dose: 20 mg Hydromorphone HCl (Dilaudid Injection -) 2 mg IVPUSH ONCE ONE Stop: 12/21/17 22:34 Lactulose (Cephulac (Oral Use)) 20 gm PO TID PRN PRN Reason: CONSTIPATION Last Admin: 12/20/17 09:32 Dose: 20 gm Levothyroxine Sodium (Synthroid -) 50 mcg PO DAILY@0700 [facility] Last Admin: 12/22/17 06:11 Dose: Not Given Lorazepam (Ativan Injection -) 2 mg IVPB ONCE ONE Stop: 12/21/17 23:16 Melatonin (Melatonin) 5 mg PO HS PRN PRN Reason: INSOMNIA Last Admin: 12/21/17 00:44 Dose: 5 mg Methylprednisolone Sodium Succinate (Solu-Medrol -) 40 mg IVPUSH BID [facility] Last Admin: 12/22/17 12:50 Dose: 40 mg Metoprolol Succinate (Toprol Xl -) 25 mg PO DAILY [facility] Last Admin: 12/22/17 12:50 Dose: 25 mg Pantoprazole Sodium (Protonix Iv) 40 mg IVPUSH BID [facility] Last Admin: 12/22/17 00:27 Dose: 40 mg Sodium Chloride ([place] Nasal [place] -) 1 spray NS Q4H PRN PRN Reason: NASAL CONGESTION Spironolactone (Aldactone -) 50 mg PO DAILY [facility] Last Admin: 12/21/17 09:28 Dose: 50 mg Gen: lethargic, jaundiced Heart: RRR Lung: decreased breath sounds at the bases Abd: soft, nontender Ext: + edema Laboratory Results - last 24 hr 12/19/17 12/22/17 12/22/17 13:33 05:50 05:50 WBC 21.2 H D Corrected WBC (auto) 18.43 RBC 2.22 L Hgb 6.9 L* Hct 18.9 L MCV 85.1 MCH 31.1 MCHC 36.5 H RDW 20.8 H D Plt Count 29 L* MPV 7.3 L Total Counted 100 Neutrophils % No Result Required. Neutrophils % (Manual) 75.0 Band Neutrophils % 7.0 Lymphocytes % No Result Required. Lymphocytes % (Manual) 8.0 D Monocytes % (Manual) 3 L Eosinophils % (Manual) 2.0 D Myelocytes % (Man) 3 H D Nucleated RBC % 15 H* Metamyelocytes 2 D Platelet Estimate Decreased Polychromasia 1+ Anisocytosis 1+ Microcytosis 1+ Macrocytosis 1+ Ovalocytes 1+ Acanthocytes (Spur) 1+ Schistocytes 1+ PT with INR 18.90 H INR 1.67 H PTT (Actin FS) 23.2 L Sodium Potassium Chloride Carbon Dioxide Anion Gap BUN Creatinine Creat Clearance w eGFR Random Glucose Lactic Acid Calcium Total Bilirubin AST ALT Alkaline Phosphatase Total Protein Albumin Blood Type O POSITIVE Antibody Screen Negative Crossmatch See Detail 12/22/17 12/22/17 05:50 05:50 WBC Corrected WBC (auto) RBC Hgb Hct MCV MCH MCHC RDW Plt Count MPV Total Counted Neutrophils % Neutrophils % (Manual) Band Neutrophils % Lymphocytes % Lymphocytes % (Manual) Monocytes % (Manual) Eosinophils % (Manual) Myelocytes % (Man) Nucleated RBC % Metamyelocytes Platelet Estimate Polychromasia Anisocytosis Microcytosis Macrocytosis Ovalocytes Acanthocytes (Spur) Schistocytes PT with INR INR PTT (Actin FS) Sodium 142 Potassium 4.3 Chloride 110 H Carbon Dioxide 23 Anion Gap 9 BUN 47 H Creatinine 1.0 Creat Clearance w eGFR 55.64 Random Glucose 169 H Lactic Acid 3.3 H* Calcium 7.4 L Total Bilirubin 12.1 H D AST 290 H ALT 48 Alkaline Phosphatase 135 H Total Protein 4.8 L Albumin 2.1 L Blood Type Antibody Screen Crossmatch ASSESSMENT AND PLAN: Metastatic Breast Ca with bone/liver mets Acute Diastolic Heart Failure Acute Liver Failure Hepatic Encephalopathy Coagulopathy Acute Hemolytic Anemia Thrombocytopenia CAD HTN - monitor CBC, coags - Normal transfusion thresholds - lactulose - monitor ammonia level - prednisone - pain control - DNR/DNI - Continue discussions regarding goals of care, recommend palliative/comfort measures Dr Morel critical care time spent in reviewing chart, evaluating patient and formulating plan 35 min
--- NOTE | 2017-12-22 13:49 | PN ---
Progress Note, Physician Chief Complaint: CHART AND EVENTS REVIEWED TRANSFUSED PRBC BUT PATIENT IS HEMOLYSING WEAK POOR APPETITE SEVERE-MOD DISTRESS - Current Medication List Current Medications: Active Medications Acetaminophen (Tylenol -) 650 mg PO Q4H PRN PRN Reason: FEVER Last Admin: 12/21/17 06:12 Dose: 650 mg Fentanyl (Sublimaze Injection -) 25 mcg IVPUSH Q2H PRN PRN Reason: PAIN LEVEL 4 - 6 Stop: 12/22/17 23:19 Last Admin: 12/22/17 08:22 Dose: 25 mcg Fentanyl (Sublimaze Injection -) 50 mcg IVPUSH Q2H PRN PRN Reason: PAIN LEVEL 7 - 10 Stop: 12/22/17 23:29 Folic Acid (Folic Acid -) 1 mg PO DAILY [facility] Last Admin: 12/21/17 09:28 Dose: 1 mg Furosemide (Lasix -) 20 mg PO DAILY [facility] Last Admin: 12/21/17 09:28 Dose: 20 mg Hydromorphone HCl (Dilaudid Injection -) 2 mg IVPUSH ONCE ONE Stop: 12/21/17 22:34 Lactulose (Cephulac (Oral Use)) 20 gm PO TID PRN PRN Reason: CONSTIPATION Last Admin: 12/20/17 09:32 Dose: 20 gm Levothyroxine Sodium (Synthroid -) 50 mcg PO DAILY@0700 [facility] Last Admin: 12/22/17 06:11 Dose: Not Given Lorazepam (Ativan Injection -) 2 mg IVPB ONCE ONE Stop: 12/21/17 23:16 Melatonin (Melatonin) 5 mg PO HS PRN PRN Reason: INSOMNIA Last Admin: 12/21/17 00:44 Dose: 5 mg Methylprednisolone Sodium Succinate (Solu-Medrol -) 40 mg IVPUSH BID [facility] Last Admin: 12/22/17 12:50 Dose: 40 mg Metoprolol Succinate (Toprol Xl -) 25 mg PO DAILY [facility] Last Admin: 12/22/17 12:50 Dose: 25 mg Pantoprazole Sodium (Protonix Iv) 40 mg IVPUSH BID [facility] Last Admin: 12/22/17 00:27 Dose: 40 mg Sodium Chloride ([place] Nas[place] -) 1 spray NS Q4H PRN PRN Reason: NASAL CONGESTION Spironolactone (Aldactone -) 50 mg PO DAILY [facility] Last Admin: 12/21/17 09:28 Dose: 50 mg - Objective Vital Signs: Vital Signs Temperature 97.5 F L 12/22/17 10:00 Pulse Rate 65 12/22/17 10:00 Respiratory Rate 14 12/22/17 10:00 Blood Pressure 143/76 12/22/17 10:00 O2 Sat by Pulse Oximetry (%) 98 12/22/17 09:00 Constitutional: Yes: Moderate Distress Eyes: Yes: Sclera Icterus HENT: Yes: WNL Neck: Yes: WNL Cardiovascular: Yes: WNL Respiratory: Yes: On Nasal O2 Gastrointestinal: Yes: Tenderness Musculoskeletal: Yes: Muscle Weakness Extremities: Yes: Other Edema: Yes Integumentary: Yes: Jaundice Wound/Incision: Yes: Clean/Dry Neurological: Yes: Pre-Existing Deficit, Unsteady Gait, Weakness ...Motor Strength: LLE, RLE Psychiatric: Yes: Other Labs: CBC, BMP 12/22/17 05:50 12/22/17 05:50 INR, PTT INR 1.67 (0.82-1.09) H 12/22/17 05:50 Problem List - Problems (1) Jaundice Code(s): R17 - UNSPECIFIED JAUNDICE (2) Metastatic cancer Code(s): C79.9 - SECONDARY MALIGNANT NEOPLASM OF UNSPECIFIED SITE (3) Occult blood in stools Code(s): R19.5 - OTHER FECAL ABNORMALITIES (4) Urinary retention Code(s): R33.9 - RETENTION OF URINE, UNSPECIFIED (5) Back pain Code(s): M54.9 - DORSALGIA, UNSPECIFIED Qualifiers: Back pain location: low back pain Chronicity: acute Back pain laterality : right Sciatica presence: with sciatica Sciatica laterality: sciatica of right side Qualified Code(s): M54.41 - Lumbago with sciatica, right side (6) Chronic disease anemia Code(s): D63.8 - ANEMIA IN OTHER CHRONIC DISEASES CLASSIFIED ELSEWHERE (7) HTN (hypertension) Code(s): I10 - ESSENTIAL (PRIMARY) HYPERTENSION Assessment/Plan TRANSFUSE WITH HEMATOLOGY DIRECT PRBC WILL NEED DR HOWELL TO ORDER PAIN CONTROL DVT PROPHYLAXIS 02 SUPPORT POOR OVERALL PROGNOSIS
--- NOTE | 2017-12-22 15:35 | PN ---
Progress Note (short form) - Note Progress Note: Patient seen and examined. condition worsened, more lethargic and jaundiced O/E General: jaundiced , lethargic HEENT: NCAT Cor: RRR Lungs: CTA b/l ABd: RUQ tenderness Extremities: 2+ pitting edema Neuro: Drowsy Last Vital Signs Temp Pulse Resp BP Pulse Ox 97.5 F L 67 14 160/77 98 12/22/17 10:00 12/22/17 12:00 12/22/17 12:00 12/22/17 12:00 12/22/17 09:00 CBC, BMP 12/22/17 05:50 12/22/17 05:50 Current Medications Generic Name Dose Route Start Last Admin Trade Name Freq PRN Reason Stop Dose Admin Acetaminophen 650 mg 12/14/17 11:48 12/21/17 06:12 Tylenol - PO 650 mg Q4H PRN Administration FEVER Fentanyl 25 mcg 12/21/17 23:20 12/22/17 08:22 Sublimaze Injection - IVPUSH 12/22/17 23:19 25 mcg Q2H PRN Administration PAIN LEVEL 4 - 6 Fentanyl 50 mcg 12/21/17 23:21 Sublimaze Injection - IVPUSH 12/22/17 23:29 Q2H PRN PAIN LEVEL 7 - 10 Folic Acid 1 mg 12/15/17 15:45 12/22/17 11:00 Folic Acid - PO Not Given DAILY [facility] Furosemide 20 mg 12/20/17 20:00 12/22/17 11:00 Lasix - PO Not Given DAILY [facility] Hydromorphone HCl 2 mg 12/21/17 22:33 Dilaudid Injection - IVPUSH 12/21/17 22:34 ONCE ONE Lactulose 20 gm 12/16/17 17:51 12/20/17 09:32 Cephulac (Oral Use) PO 20 gm TID PRN Administration CONSTIPATION Levothyroxine Sodium 50 mcg 12/15/17 07:00 12/22/17 06:11 Synthroid - PO Not Given DAILY@0700 [facility] Lorazepam 2 mg 12/21/17 23:15 Ativan Injection - IVPB 12/21/17 23:16 ONCE ONE Melatonin 5 mg 12/21/17 00:29 12/21/17 00:44 Melatonin PO 5 mg HS PRN Administration INSOMNIA Methylprednisolone Sodium Succinate 40 mg 12/21/17 23:15 12/22/17 12:50 Solu-Medrol - IVPUSH 40 mg BID [facility] Administration Metoprolol Succinate 25 mg 12/16/17 10:00 12/22/17 12:50 Toprol Xl - PO 25 mg DAILY [facility] Administration Pantoprazole Sodium 40 mg 12/21/17 23:15 12/22/17 11:00 Protonix Iv IVPUSH 40 mg BID [facility] Administration Sodium Chloride 1 spray 12/14/17 14:13 [place] Nasal [place] - NS Q4H PRN NASAL CONGESTION Spironolactone 50 mg 12/20/17 20:00 12/22/17 11:00 Aldactone - PO Not Given DAILY [facility] Advanced metastatic breast ca with liver mets--MAHA, encephalopathy, declining physical condition d/w daughter Rachel and second HCP , along with pt, Pal care-- decision for comfort care/hospice arrangements to be made. appreciate Pal care assistance
[2017-12-22] MEDS ORDERED: ALBUTEROL SO4 2.5/IPRATROPIUM 0.5 INH SOL 3 ML VIAL.NEB. NEB PRN (15:46)
[2017-12-22] MEDS: morphine SULFATE 4 MG/ML VIAL IVPUSH PRN ×2 (18:50→22:44)
[2017-12-22] MEDS ORDERED: BISACODYL 10 MG SUPP.RECT PR ONE (20:53)
[2017-12-22] MEDS: LACTULOSE 20 GM/30 ML UDC (FOR ORAL USE ONLY) PO PRN (22:00)
[2017-12-23] MEDS: morphine SULFATE 4 MG/ML VIAL IVPUSH PRN ×4 (03:40→12:55)
[2017-12-23] MEDS: LEVOTHYROXINE NA 50 MCG TABLET (FP) PO SCH (06:12)
[2017-12-23 06:25] LABS: HEMATOCRIT 18.8 % (32.4-45.2); MCH 30.5 pg (25.7-33.7); MCHC 37.2 g/dl (32.0-36.0); MEAN PLT VOLUME 7.7 fl (7.5-11.1); PLATELET COUNT 38 K/MM3 (134-434); RBC 2.29 M/mm3 (3.60-5.2); RDW 32.7 % (11.6-15.6); WHITE BLOOD COUNT 24.1 K/mm3 (4.0-10.0)
[2017-12-23 06:32] LABS: INR 1.89 (0.82-1.09); PROTHROMBIN TIME (PATIENT) 21.4 SEC (9.98-11.88)
[2017-12-23 06:35] LABS: ACTIVATED PTT 22.4 SECONDS (26.9-34.4)
[2017-12-23 06:52] VITALS: TEMP 97.8
[2017-12-23 07:41] LABS: ALBUMIN 2.1 g/dl (3.4-5.0); ANION GAP 13 (8-16); BLOOD UREA NITROGEN 65 mg/dL (7-18); CALCIUM 7.8 mg/dL (8.5-10.1); CHLORIDE 110 mmol/L (98-107); CO2 19 mmol/L (21-32); CREATININE 1.5 mg/dL (0.55-1.02); GLUCOSE,RANDOM 192 mg/dL (74-106); SODIUM 142 mmol/L (136-145); TOT PROT 5.1 g/dl (6.4-8.2)
[2017-12-23 07:50] LABS: ALK PHOS 156 U/L (45-117)
[2017-12-23 07:51] LABS: MAGNESIUM 2.6 mg/dL (1.8-2.4); PHOSPHOROUS 3.7 mg/dL (2.5-4.9); POTASSIUM 4.8 mmol/L (3.5-5.1); SGOT/AST 420 U/L (15-37); SGPT/ALT 58 U/L (12-78)
[2017-12-23 07:54] LABS: BILIRUBIN,TOTAL 18.1 mg/dL (0.2-1.0)
--- NOTE | 2017-12-23 09:06 | PN ---
Physical Exam: SUBJECTIVE: Patient seen and examined in ICU. Patient is no longer interactive or communicative. Patient still has not made decision on palliative care. OBJECTIVE: Vital Signs Period Temp Pulse Resp BP Sys/Zayas Pulse Ox Last 24 Hr 97.5 F-98 F 65-90 14-16 120-178/68-95 98 GENERAL: The patient is awake, non-communicative HEAD: Normal with no signs of trauma. EYES: PERRL, extraocular movements intact, sclera incteric LUNGS: Breath sounds equal, clear to auscultation bilaterally, no wheezes, no crackles, no accessory muscle use. HEART: Regular rate and rhythm, S1, S2 without murmur, rub or gallop. ABDOMEN: Soft, nontender, nondistended, normoactive bowel sounds, no guarding, no rebound, no hepatosplenomegaly, no masses. EXTREMITIES: 2+ pulses, warm, well-perfused, no edema. NEUROLOGICAL: Eyes deviated to right, not cooperative with neuro exam SKIN: Warm, dry, jaundiced Laboratory Results - last 24 hr 12/19/17 12/22/17 12/23/17 13:33 05:50 05:43 WBC 24.1 H Corrected WBC (auto) 18.43 RBC 2.29 L Hgb 7.0 L Hct 18.8 L MCV 82.0 MCH 30.5 MCHC 37.2 H RDW 32.7 H Plt Count 38 L D MPV 7.7 Total Counted 100 Neutrophils % (Manual) 75.0 Band Neutrophils % 7.0 Lymphocytes % (Manual) 8.0 D Monocytes % (Manual) 3 L Eosinophils % (Manual) 2.0 D Myelocytes % (Man) 3 H D Nucleated RBC % 15 H* Metamyelocytes 2 D Platelet Estimate Decreased Polychromasia 1+ Anisocytosis 1+ Microcytosis 1+ Macrocytosis 1+ Ovalocytes 1+ Acanthocytes (Spur) 1+ Schistocytes 1+ PT with INR INR PTT (Actin FS) Sodium Potassium Chloride Carbon Dioxide Anion Gap BUN Creatinine Creat Clearance w eGFR Random Glucose Calcium Phosphorus Magnesium Total Bilirubin AST ALT Alkaline Phosphatase Total Protein Albumin Blood Type O POSITIVE Antibody Screen Negative Crossmatch See Detail 12/23/17 12/23/17 05:43 05:43 WBC Corrected WBC (auto) RBC Hgb Hct MCV MCH MCHC RDW Plt Count MPV Total Counted Neutrophils % (Manual) Band Neutrophils % Lymphocytes % (Manual) Monocytes % (Manual) Eosinophils % (Manual) Myelocytes % (Man) Nucleated RBC % Metamyelocytes Platelet Estimate Polychromasia Anisocytosis Microcytosis Macrocytosis Ovalocytes Acanthocytes (Spur) Schistocytes PT with INR 21.40 H INR 1.89 H PTT (Actin FS) 22.4 L Sodium 142 Potassium 4.8 Chloride 110 H Carbon Dioxide 19 L Anion Gap 13 BUN 65 H Creatinine 1.5 H Creat Clearance w eGFR 34.85 Random Glucose 192 H Calcium 7.8 L Phosphorus 3.7 Magnesium 2.6 H Total Bilirubin 18.1 H* D AST 420 H ALT 58 Alkaline Phosphatase 156 H Total Protein 5.1 L Albumin 2.1 L Blood Type Antibody Screen Crossmatch Active Medications Generic Name Dose Route Start Last Admin Trade Name Freq PRN Reason Stop Dose Admin Acetaminophen 650 mg 12/14/17 11:48 12/21/17 06:12 Tylenol - PO 650 mg Q4H PRN Administration FEVER Albuterol/Ipratropium 1 amp 12/22/17 15:46 12/22/17 16:05 Duoneb - NEB 1 amp Q4H PRN Administration SHORTNESS OF BREATH Folic Acid 1 mg 12/15/17 15:45 12/22/17 11:00 Folic Acid - PO Not Given DAILY [facility] Furosemide 20 mg 12/20/17 20:00 12/22/17 11:00 Lasix - PO Not Given DAILY [facility] Lactulose 20 gm 12/16/17 17:51 12/22/17 22:00 Cephulac (Oral Use) PO 20 gm TID PRN Administration CONSTIPATION Levothyroxine Sodium 50 mcg 12/15/17 07:00 12/23/17 06:12 Synthroid - PO 50 mcg DAILY@0700 [facility] Administration Lorazepam 2 mg 12/21/17 23:15 Ativan Injection - IVPB 12/21/17 23:16 ONCE ONE Melatonin 5 mg 12/21/17 00:29 12/21/17 00:44 Melatonin PO 5 mg HS PRN Administration INSOMNIA Methylprednisolone Sodium Succinate 40 mg 12/21/17 23:15 12/22/17 22:47 Solu-Medrol - IVPUSH 40 mg BID [facility] Administration Metoprolol Succinate 25 mg 12/16/17 10:00 12/22/17 12:50 Toprol Xl - PO 25 mg DAILY [facility] Administration Morphine Sulfate 2 mg 12/22/17 18:11 12/23/17 06:18 Morphine Sulfate IVPUSH 2 mg Q3H PRN Administration PAIN LEVEL 6-10 Pantoprazole Sodium 40 mg 12/21/17 23:15 12/22/17 22:47 Protonix Iv IVPUSH 40 mg BID [facility] Administration Sodium Chloride 1 spray 12/14/17 14:13 [place] Nasal [place] - NS Q4H PRN NASAL CONGESTION Spironolactone 50 mg 12/20/17 20:00 12/22/17 11:00 Aldactone - PO Not Given DAILY [facility] ASSESSMENT/PLAN: 67 yo F h/o b/l breast CA with mets to BM, LN, and liver admitted to ICU for lethargy and confusion. Patient's condition worsened today Hepatic encephalopathy - 2/2 primary breast CA mets to liver - Mental status worsening today, acute increase in bili level Pain - fentanyl PRN Acute on chronic diastolic CHF exacerbation - Resolving - Cont. daily lasix 20mg and aldactone 50mg daily Primary Breast CA with mets - Heme/Onc onboard - Hospice vs. low dose chemo - CT thoracic/lumbar spine shows multiple bony mets - Pending family decision Leukocytosis - 2/2 malignancy - Observe off abx per ID Thrombocytopenia - 2/2 BM mets - Transfuse plt today Anemia - Hgb 7.0 today Prophylaxis - DVT chemoprophylaxis held 2/2 hematuria - GI ppx with Protonix Dispo -DNR/DNI -Pending family discussion of goals of care David Vazquez PGY-1 Visit type - Emergency Visit Emergency Visit: Yes ED Registration Date: 12/14/17 Care time: The patient presented to the Emergency Department on the above date and was hospitalized for further evaluation of their emergent condition. - New Patient This patient is new to me today: No - Critical Care Critical Care patient: Yes Total Critical Care Time (in minutes): 35 Critical Care Statement: The care of this patient involved high complexity decision making to prevent further life threatening deterioration of the patient 's condition and/or to evaluate & treat vital organ system(s) failure or risk of failure.
[2017-12-23 09:26] LABS: ANISOCYTOSIS 2+; PLATELET ESTIMATE DECREASED; SICKELED CELLS 2+
[2017-12-23 09:31] LABS: CORRECTED WBC 26.52 K/mm3
[2017-12-23] MEDS: PANTOPRAZOLE SODIUM 40 MG VIAL IVPUSH SCH (09:35)
[2017-12-23] MEDS: methylPREDNISolone NA SUCC 40 MG/1 ML VIAL IVPUSH SCH (09:35)
[2017-12-23] MEDS ORDERED: METOPROLOL TARTRATE 5 MG/5 ML VIAL IVPUSH PRN (09:53)
[2017-12-23] MEDS: FOLIC ACID 1 MG TABLET (FP) PO SCH (11:17)
--- NOTE | 2017-12-23 11:21 | PN ---
Progress Note, Physician History of Present Illness: FAMILY BEDSIDE PATIENT IN ICU RESP SUPPORT SEDATED - Current Medication List Current Medications: Active Medications Acetaminophen (Tylenol -) 650 mg PO Q4H PRN PRN Reason: FEVER Last Admin: 12/21/17 06:12 Dose: 650 mg Albuterol/Ipratropium (Duoneb -) 1 amp NEB Q4H PRN PRN Reason: SHORTNESS OF BREATH Last Admin: 12/22/17 16:05 Dose: 1 amp Folic Acid (Folic Acid -) 1 mg PO DAILY [facility] Last Admin: 12/23/17 11:17 Dose: Not Given Lactulose (Cephulac (Oral Use)) 20 gm PO TID PRN PRN Reason: CONSTIPATION Last Admin: 12/22/17 22:00 Dose: 20 gm Levothyroxine Sodium (Synthroid -) 50 mcg PO DAILY@0700 [facility] Last Admin: 12/23/17 06:12 Dose: 50 mcg Lorazepam (Ativan Injection -) 2 mg IVPB ONCE ONE Stop: 12/21/17 23:16 Melatonin (Melatonin) 5 mg PO HS PRN PRN Reason: INSOMNIA Last Admin: 12/21/17 00:44 Dose: 5 mg Methylprednisolone Sodium Succinate (Solu-Medrol -) 40 mg IVPUSH BID [facility] Last Admin: 12/23/17 09:35 Dose: 40 mg Metoprolol Tartrate (Lopressor Injection -) 5 mg IVPUSH Q4H PRN PRN Reason: HYPERTENSION Morphine Sulfate (Morphine Sulfate) 2 mg IVPUSH Q3H PRN PRN Reason: PAIN LEVEL 6-10 Last Admin: 12/23/17 09:34 Dose: 2 mg Pantoprazole Sodium (Protonix Iv) 40 mg IVPUSH BID [facility] Last Admin: 12/23/17 09:35 Dose: 40 mg Sodium Chloride ([place] Nasal [place] -) 1 spray NS Q4H PRN PRN Reason: NASAL CONGESTION - Objective Vital Signs: Vital Signs Temperature 97.8 F 12/23/17 06:28 Pulse Rate 91 H 12/23/17 10:00 Respiratory Rate 13 12/23/17 10:00 Blood Pressure 147/82 12/23/17 10:00 O2 Sat by Pulse Oximetry (%) 98 12/23/17 09:00 Constitutional: Yes: Severe Distress Eyes: Yes: Other HENT: Yes: WNL Neck: Yes: WNL Cardiovascular: Yes: Pulse Irregular Respiratory: Yes: On Nasal O2, SOB Gastrointestinal: Yes: WNL Musculoskeletal: Yes: Muscle Weakness Extremities: Yes: Other Edema: Yes Peripheral Pulses WNL: Yes Integumentary: Yes: Jaundice Wound/Incision: Yes: Dressing Dry and Intact Neurological: Yes: Confusion, Weakness ...Motor Strength: LLE, RLE Psychiatric: Yes: Other Labs: CBC, BMP 12/23/17 05:43 12/23/17 05:43 INR, PTT INR 1.89 (0.82-1.09) H 12/23/17 05:43 Problem List - Problems (1) Jaundice Code(s): R17 - UNSPECIFIED JAUNDICE (2) Metastatic cancer Code(s): C79.9 - SECONDARY MALIGNANT NEOPLASM OF UNSPECIFIED SITE (3) Occult blood in stools Code(s): R19.5 - OTHER FECAL ABNORMALITIES (4) Urinary retention Code(s): R33.9 - RETENTION OF URINE, UNSPECIFIED (5) Back pain Code(s): M54.9 - DORSALGIA, UNSPECIFIED Qualifiers: Back pain location: low back pain Chronicity: acute Back pain laterality : right Sciatica presence: with sciatica Sciatica laterality: sciatica of right side Qualified Code(s): M54.41 - Lumbago with sciatica, right side (6) Chronic disease anemia Code(s): D63.8 - ANEMIA IN OTHER CHRONIC DISEASES CLASSIFIED ELSEWHERE (7) HTN (hypertension) Code(s): I10 - ESSENTIAL (PRIMARY) HYPERTENSION Assessment/Plan OVERALL POOR PROGNOSIS FAMILY AND PATIENT AGREE ON PALLIAITVE/COMFORT CARE PAIN CONTROL 02 SUPPORT HEME/ONC FOLLOW UP
--- NOTE | 2017-12-23 11:31 | PN ---
Progress Note (short form) - Note Progress Note: CC: sob S: lethargic, not communicating Current Medications Generic Name Dose Route Start Last Admin Trade Name Freq PRN Reason Stop Dose Admin Acetaminophen 650 mg 12/14/17 11:48 12/21/17 06:12 Tylenol - PO 650 mg Q4H PRN Administration FEVER Albuterol/Ipratropium 1 amp 12/22/17 15:46 12/22/17 16:05 Duoneb - NEB 1 amp Q4H PRN Administration SHORTNESS OF BREATH Folic Acid 1 mg 12/15/17 15:45 12/23/17 11:17 Folic Acid - PO Not Given DAILY [facility] Lactulose 20 gm 12/16/17 17:51 12/22/17 22:00 Cephulac (Oral Use) PO 20 gm TID PRN Administration CONSTIPATION Levothyroxine Sodium 50 mcg 12/15/17 07:00 12/23/17 06:12 Synthroid - PO 50 mcg DAILY@0700 [facility] Administration Lorazepam 2 mg 12/21/17 23:15 Ativan Injection - IVPB 12/21/17 23:16 ONCE ONE Melatonin 5 mg 12/21/17 00:29 12/21/17 00:44 Melatonin PO 5 mg HS PRN Administration INSOMNIA Methylprednisolone Sodium Succinate 40 mg 12/21/17 23:15 12/23/17 09:35 Solu-Medrol - IVPUSH 40 mg BID [facility] Administration Metoprolol Tartrate 5 mg 12/23/17 09:53 Lopressor Injection - IVPUSH Q4H PRN HYPERTENSION Morphine Sulfate 2 mg 12/22/17 18:11 12/23/17 09:34 Morphine Sulfate IVPUSH 2 mg Q3H PRN Administration PAIN LEVEL 6-10 Pantoprazole Sodium 40 mg 12/21/17 23:15 12/23/17 09:35 Protonix Iv IVPUSH 40 mg BID [facility] Administration Sodium Chloride 1 spray 12/14/17 14:13 [place] Nasal [place] - NS Q4H PRN NASAL CONGESTION Vital Signs Period Temp Pulse Resp BP Sys/Zayas Pulse Ox Last 24 Hr 97.8 F-98 F 67-91 13-16 120-178/68-95 98-98 lethargic jvd mild elevation bibasilar rales, poor eff RRR nl s1 s2 no m/r/g + bs soft nt nd trace edema of LE. 1+ edema of LUE (chronic lymphedema) jaundice CBC, BMP 12/23/17 05:43 12/23/17 05:43 EKG: sr with pac's, borderline prolonged qt, non-specific t wave ab. no actue ischemic changes repeat ekg 12/18: sr. qt/qtc interval has shortened. tele: sr cxr: no acute pathology. by my review, suboptimal penetration to exclude pleural effusions. repeat cxr 12/19: no acute lung pathology. CT abd/pelvis: small bilateral pleural effusions L > R. No infiltrates/ masses. mod ascites. new hepatic lesions susp for mets. Mild bilateral hydronephrosis. extensive bony mets diffusely. LUE duplex u/s: no dvt echo 08/2017: tds. nl lv/rv size/fn. mod mac, otherwise nl valves. MPI 08/2017 (madhu): No ischemic ST-T changes. Probably no ischemia (anteroapical /apicoseptal defect improves partially; breast position differences cannot be definitively seen on raw projection images however. variable breast artifact more likely but cannot exclude superimposed anterior ischemia). Normal LVEF. Normal LV cavity size with no transient dilation. ASSESSMENT/PLAN 65 yo with pmhx of htn, hl, CAD/abnormal stress test, ventricular ectopy, gerd, hypothyroid, bilat breast Ca on chemo c/b symptomatic anemia requiring regular transfusions and also with bone mets c/b pathologic fx (s/p surgical repair) and xrt to left shoulder and lumbosacral spine who for admission for blood transfusions, hospital course complicated by sob. SOB/acute diastolic HF exacerbation/ascites ?malignant - On inital eval, pt appeared volume overloaded, s/p multiple PRBC transfusions. However, she has a history of urinary retention and noted to have ++ abdominal discomfort with urinary retention here (no improvement with hubbard). Per [facility], work up ongiong, has plan for mri of spine and urology consult. Since patient reasonably asx --> deferred lasix until further work up of urinary retention in order to prevent worsening of obstruction. - 12/20: hubbard in place, s/p multiple transfusions. given lasix 20 mg IV x 1 yesterday 12/19. Will start diuretic regimen for ascites today 12/20 with aldactone 50 mg/day and lasix 20 mg/day. -12/21-: cont same diuretics -12/23: no longer taking po due to lethargy, declining clinical status. cr up today. will dc lasix/aldactone CAD/abnormal stress/hl: -never with angina sx's. current contraindications to asa and statin from hematology and hepatology perspective. -no longer taking po, will change bb to iv prn hx of freq PVCs: -well documented and quantified on holter. Patient with preserved LV fxn --> benign. -bb as above -lyte repletion prn HTN: - con't bb. med changes as above. metastatic breast ca/anemia/thrombocytopenia/hemolysis/ab lfts - per [facility]. ongoing transfusion requirement.
--- NOTE | 2017-12-23 11:55 | PN ---
Teaching Attending Note Name of Resident: David Vazquez ATTENDING PHYSICIAN STATEMENT I saw and evaluated the patient. I reviewed the resident's note and discussed the case with the resident. I agree with the resident's findings and plan as documented. SUBJECTIVE: SUBJECTIVE: Patient seen and examined in the ICU. Lethargic and poorly arousable. Severe jaundice. Indicates that pain is controlled. OBJECTIVE: Intake & Output 12/20/17 12/21/17 12/22/17 12/23/17 23:59 23:59 23:59 23:59 Intake Total 1470 120 500 50 Output Total 2700 1250 2500 1100 Balance -1230 -1130 -2000 -1050 Weight 240 lb 3.2 oz 239 lb 9 oz 230 lb 13.184 oz Last Vital Signs Temp Pulse Resp BP Pulse Ox 97.8 F 91 H 13 147/82 98 12/23/17 06:28 12/23/17 10:00 12/23/17 10:00 12/23/17 10:00 12/23/17 09:00 Active Medications Acetaminophen (Tylenol -) 650 mg PO Q4H PRN PRN Reason: FEVER Last Admin: 12/21/17 06:12 Dose: 650 mg Albuterol/Ipratropium (Duoneb -) 1 amp NEB Q4H PRN PRN Reason: SHORTNESS OF BREATH Last Admin: 12/22/17 16:05 Dose: 1 amp Folic Acid (Folic Acid -) 1 mg PO DAILY [facility] Last Admin: 12/23/17 11:17 Dose: Not Given Lactulose (Cephulac (Oral Use)) 20 gm PO TID PRN PRN Reason: CONSTIPATION Last Admin: 12/22/17 22:00 Dose: 20 gm Levothyroxine Sodium (Synthroid -) 50 mcg PO DAILY@0700 [facility] Last Admin: 12/23/17 06:12 Dose: 50 mcg Lorazepam (Ativan Injection -) 2 mg IVPB ONCE ONE Stop: 12/21/17 23:16 Melatonin (Melatonin) 5 mg PO HS PRN PRN Reason: INSOMNIA Last Admin: 12/21/17 00:44 Dose: 5 mg Methylprednisolone Sodium Succinate (Solu-Medrol -) 40 mg IVPUSH BID [facility] Last Admin: 12/23/17 09:35 Dose: 40 mg Metoprolol Tartrate (Lopressor Injection -) 5 mg IVPUSH Q4H PRN PRN Reason: HYPERTENSION Morphine Sulfate (Morphine Sulfate) 2 mg IVPUSH Q3H PRN PRN Reason: PAIN LEVEL 6-10 Last Admin: 12/23/17 09:34 Dose: 2 mg Pantoprazole Sodium (Protonix Iv) 40 mg IVPUSH BID [facility] Last Admin: 12/23/17 09:35 Dose: 40 mg Sodium Chloride ([place] Nasal [place] -) 1 spray NS Q4H PRN PRN Reason: NASAL CONGESTION Gen: lethargic, jaundiced Heart: RRR Lung: decreased breath sounds at the bases Abd: soft, nontender Ext: + edema Laboratory Results - last 24 hr 12/19/17 12/23/17 12/23/17 13:33 05:43 05:43 WBC 24.1 H Corrected WBC (auto) 26.52 RBC 2.29 L Hgb 7.0 L Hct 18.8 L MCV 82.0 MCH 30.5 MCHC 37.2 H RDW 32.7 H Plt Count 38 L D MPV 7.7 Neutrophils % (Manual) 75.6 Band Neutrophils % 4.5 Lymphocytes % (Manual) 8.9 Monocytes % (Manual) 3 L Eosinophils % (Manual) 1.1 Basophils % (Manual) 0.0 Myelocytes % (Man) 4 H D Promyelocytes % (Man) 1 D Blast Cells % (Manual) 0 Nucleated RBC % 15 H* Metamyelocytes 1 D Hypochromia 2+ Platelet Estimate Decreased Polychromasia 1+ Anisocytosis 2+ Microcytosis 2+ Sickle Cells 2+ Ree Cells 1+ PT with INR 21.40 H INR 1.89 H PTT (Actin FS) 22.4 L Sodium Potassium Chloride Carbon Dioxide Anion Gap BUN Creatinine Creat Clearance w eGFR Random Glucose Calcium Phosphorus Magnesium Total Bilirubin AST ALT Alkaline Phosphatase Total Protein Albumin Blood Type O POSITIVE Antibody Screen Negative Crossmatch See Detail 12/23/17 05:43 WBC Corrected WBC (auto) RBC Hgb Hct MCV MCH MCHC RDW Plt Count MPV Neutrophils % (Manual) Band Neutrophils % Lymphocytes % (Manual) Monocytes % (Manual) Eosinophils % (Manual) Basophils % (Manual) Myelocytes % (Man) Promyelocytes % (Man) Blast Cells % (Manual) Nucleated RBC % Metamyelocytes Hypochromia Platelet Estimate Polychromasia Anisocytosis Microcytosis Sickle Cells [place] Cells PT with INR INR PTT (Actin FS) Sodium 142 Potassium 4.8 Chloride 110 H Carbon Dioxide 19 L Anion Gap 13 BUN 65 H Creatinine 1.5 H Creat Clearance w eGFR 34.85 Random Glucose 192 H Calcium 7.8 L Phosphorus 3.7 Magnesium 2.6 H Total Bilirubin 18.1 H* D AST 420 H ALT 58 Alkaline Phosphatase 156 H Total Protein 5.1 L Albumin 2.1 L Blood Type Antibody Screen Crossmatch ASSESSMENT AND PLAN: Metastatic Breast Ca with bone/liver mets Acute Diastolic Heart Failure Acute Liver Failure Hepatic Encephalopathy Coagulopathy Acute Hemolytic Anemia Thrombocytopenia CAD HTN - Patient is currently receiving Morphine Sulfate for pain/comfort. Although she has codeine/oxycodone listed as allergies, I doubt this. She has not displayed any sign of allergic reaction and is being made quite comfortable with the Morphine Sulfate. - Comfort measures - DNR/DNI - Continue discussions regarding goals of care, recommend palliative/comfort measures Dr Morel Critical care time spent in reviewing chart, evaluating patient and formulating plan 35 min
[2017-12-23 13:18] VITALS: BP 151/78; PULSE 106
[2017-12-23] MEDS ORDERED: morphine SULFATE 4 MG/ML VIAL IVPUSH ONE (14:35)
--- NOTE | 2017-12-23 15:07 | PN ---
Progress Note (short form) - Note Progress Note: I was called to see patient for unresponsiveness. On exam the patient did not respond to verbal or physical stimuli and no spontaneous movement was observed. Absent heart and breath sounds for more than one minute. Absent peripheral pulses. Pupils are fixed and dilated, corneal reflex was absent. Patient pronounced at 14:52. Dr. Morel notified. Family at bedside.
[2017-12-23] MEDS: ARTIFICIAL TEARS (POLYVINYL ALCOHOL 1.4%) OPTH DROPS OU PRN ×2 (17:00→18:58)
== END 2017-12-23 14:52 | disposition expired | DRG 291 ==
LOC: JONCCHEMO 07:30 → J7W 11:29 → JONCCHEMO 11:30 → JICU 12-20 15:47
PROVIDERS: ADMIT Internal Medicine Hematology & Oncology; ATTEND Internal Medicine Hematology & Oncology
PROC: 30233R1 Transfusion of Nonautologous Platelets into Peripheral Vein, Percutaneous Approach (ICD-10-PCS; principal; 2017-12-14)
PROC: 30233N1 Transfusion of Nonautologous Red Blood Cells into Peripheral Vein, Percutaneous Approach (ICD-10-PCS; 2017-12-19)
DX: I11.0 Hypertensive heart disease with heart failure (principal); K72.00 Acute and subacute hepatic failure without coma; D61.818 Other pancytopenia; C79.51 Secondary malignant neoplasm of bone; C79.89 Secondary malignant neoplasm of other specified sites; C77.0 Secondary and unspecified malignant neoplasm of lymph nodes of head, face and neck; C78.7 Secondary malignant neoplasm of liver and intrahepatic bile duct; J98.11 Atelectasis; E87.2 Acidosis; R18.8 Other ascites; D59.9 Acquired hemolytic anemia, unspecified; N13.30 Unspecified hydronephrosis; I50.33 Acute on chronic diastolic (congestive) heart failure; C50.912 Malignant neoplasm of unspecified site of left female breast; C50.911 Malignant neoplasm of unspecified site of right female breast; Z17.0 Estrogen receptor positive status [ER+]; R33.9 Retention of urine, unspecified; I25.10 Atherosclerotic heart disease of native coronary artery without angina pectoris; K21.9 Gastro-esophageal reflux disease without esophagitis; E03.9 Hypothyroidism, unspecified; I49.3 Ventricular premature depolarization; I45.81 Long QT syndrome; K57.90 Diverticulosis of intestine, part unspecified, without perforation or abscess without bleeding; D63.8 Anemia in other chronic diseases classified elsewhere; R19.5 Other fecal abnormalities; Z80.0 Family history of malignant neoplasm of digestive organs; R79.89 Other specified abnormal findings of blood chemistry; K72.90 Hepatic failure, unspecified without coma; R31.9 Hematuria, unspecified; E78.5 Hyperlipidemia, unspecified; E06.3 Autoimmune thyroiditis; Z66 Do not resuscitate
CPT/HCPCS: 36415; 36430; 70450-TC; 71045-TC-FY; 72133-TC; 74177-TC; 76700-TC; 76705-TC; 80053; 80076; 81003; 81015; 82140; 82248; 82272; 82728; 82962; 82977; 83010; 83540; 83550; 83605; 83615; 83735; 84100; 84484; 85025; 85027; 85044; 85610; 85730; 86038; 86704; 86706; 86708; 86850; 86900; 86901; 86922; 87040; 87086; 87324; 87340; 87449; 88300-TC; 93005; 93010; 93971; 94010; 94640; 96402; J3489; J7030; J9395; P9034; P9038; P9058